=== PATIENT | female | born 1950 | race African-American/Black ===

== ENCOUNTER 2018-03-19 16:23 | Inpatient (IN) | payer MEDICARE, MEDICAID ==
[~2018-03-19] VITALS: Ht 170.2 cm; Wt 72.3 kg
[~2018-03-19 16:23] MED LIST: AFRIN; BACTRIM DS1 TAB PO; CALCIUM600 M1 PO; CHERATUSSIN PO; CLINDAMYCIN300 M1 PO; CYCLOBENZAPR10 MG PO; CYCLOBENZAPRINE10 MG PO; DOCUSATE CAL240 MG PO; DOXYCYCL HYC100 MG PO; FENTANYL25 MCG/HR TD; FLONASE NASAL50 MCG; GABAPENTIN300 MG PO; HYDROCHLOROT12.5 MG PO; HYDROCO/APAP1 T10 PO; HYDROCO/APAP1 TA9 PO; HYDROCODONE/ACE1 TAB PO; HYDROXYCHLOR200 MG PO; LISINOPRIL20 MG PO; LISINOPRIL40 MG PO; LORATADINE10 M1 PO; LORCET10/650 PO; LORTAB 7.5 PO; LORTAB 7.5-3251 TAB PO; MAGNESIUM250 MG PO; MEDDOSEPAK PO; MELOXICAM15 MG PO; MELOXICAM7.5 MG PO; OMEPRAZOLE20 M2 PO; OMEPRAZOLE40 MG PO; PERCOCET 5/325M1 TAB PO; PLAQUENIL200 MG PO; PRILOSEC40 MG PO; TIZANIDINE HCL4 M1 PO; TORADOL PO; TRAMADOL HCL50 MG PO; WAL-FEX D 1212 HOUR PO; ZPAK PO; [UNRECOGNIZED DRUG - OTHER]
[2018-03-19 16:50] VITALS: BP 136/79
[2018-03-19 17:23] LABS: IMMATURE GRANULOCYTES 0.4 % (0.0-1.0); MEAN CELL VOLUME 88.5 fL CALC (80.0-100.0); MEAN CORPUSCULAR HGB 27.7 pG CALC (26.0-32.0); MEAN CORPUSCULAR HGB CONC 31.3 g/L CALC (32.0-36.0); NEUT# 2.73 thou/uL (2.00-7.15); RED BLOOD COUNT 3.14 mill/uL (4.20-5.60); RED CELL DISTRI WIDTH 17.4 % (11.5-15.5)
[2018-03-19 17:29] LABS: HEMATOCRIT 27.8 % (37.0-47.0); HEMOGLOBIN 8.7 g/dl (12.0-16.0)
[2018-03-19 17:43] LABS: CREATININE 1.8 mg/dL (0.5-1.0)
[2018-03-19 17:49] LABS: POTASSIUM 4.2 mmol/l (3.5-5.1)
[2018-03-19 19:25] VITALS: BP 137/80
[2018-03-20] VITALS (10 sets, daily range): BP systolic 109–141; BP diastolic 41–78
[2018-03-20] MEDS ORDERED: AMLODIPINE5 MG PO (10:32)
[2018-03-20] MEDS ORDERED: FERR SULFATE325 MG PO (10:36)
[2018-03-20] MEDS ORDERED: ATORVASTATIN CA20 MG PO (10:37)
[2018-03-20] MEDS ORDERED: EQL ANTACID U1000 MG PO (11:09)
[2018-03-20] MEDS ORDERED: ASPIRIN 8181 MG PO (11:48)
[2018-03-20 15:47] LABS: URINE BILIRUBIN - DIPSTICK NEGATIVE (NEGATIVE); URINE BLOOD DIPSTICK NEGATIVE (NEGATIVE); URINE COLOR YELLOW; URINE GLUCOSE - DIPSTICK NEGATIVE (NEGATIVE); URINE KETONE NEGATIVE (NEGATIVE); URINE LEUK ESTERASE NEGATIVE (NEGATIVE); URINE NITRITE - DIPSTICK NEGATIVE (Negative); URINE PH 5.5 (4.5-8.0); URINE PROTEIN - DIPSTICK NEGATIVE (NEG-TRACE); URINE SPECIFIC GRAVITY 1.025; URINE UROBILINOGEN - DIPSTICK 0.2 E.U./dL (0.2)
[2018-03-20 16:34] LABS: URINE CLARITY CLEAR
[2018-03-21] VITALS (9 sets, daily range): BP systolic 121–151; BP diastolic 47–88
[2018-03-21 05:30] LABS: HEMATOCRIT 28.6 % (37.0-47.0); HEMOGLOBIN 9.3 g/dl (12.0-16.0); IMMATURE GRANULOCYTES 0.7 % (0.0-1.0); MEAN CELL VOLUME 88.3 fL CALC (80.0-100.0); MEAN CORPUSCULAR HGB 28.7 pG CALC (26.0-32.0); MEAN CORPUSCULAR HGB CONC 32.5 g/L CALC (32.0-36.0); NEUT# 2.25 thou/uL (2.00-7.15); RED BLOOD COUNT 3.24 mill/uL (4.20-5.60); RED CELL DISTRI WIDTH 16.2 % (11.5-15.5)
[2018-03-21 05:43] LABS: BILIRUBIN, TOTAL 0.7 mg/dL (0.0-1.4); CREATININE 1.3 mg/dL (0.5-1.0); POTASSIUM 4.4 mmol/l (3.5-5.1); TOTAL PROTEIN 5.8 g/dL (6.3-8.2)
[2018-03-21 05:46] LABS: ALBUMIN 2.6 g/dL (3.2-5.0)
[2018-03-22 04:43] VITALS: BP 120/73
[2018-03-22 05:07] LABS: IMMATURE GRANULOCYTES 0.6 % (0.0-1.0); MEAN CELL VOLUME 86.9 fL CALC (80.0-100.0); MEAN CORPUSCULAR HGB 29.2 pG CALC (26.0-32.0); MEAN CORPUSCULAR HGB CONC 33.6 g/L CALC (32.0-36.0); NEUT# 2.38 thou/uL (2.00-7.15); RED BLOOD COUNT 4.28 mill/uL (4.20-5.60); RED CELL DISTRI WIDTH 15.9 % (11.5-15.5)
[2018-03-22 05:10] LABS: HEMATOCRIT 37.2 % (37.0-47.0); HEMOGLOBIN 12.5 g/dl (12.0-16.0)
[2018-03-22 05:17] LABS: CREATININE 1.3 mg/dL (0.5-1.0); POTASSIUM 4.4 mmol/l (3.5-5.1)
[2018-03-22 08:12] VITALS: BP 101/66
[2018-03-22 15:18] VITALS: BP 142/92
[2018-03-22 22:00] VITALS: BP 101/64; BP 136/87
[2018-03-23 04:11] VITALS: BP 125/79
[2018-03-23 07:45] VITALS: BP 107/57; BP 140/80
[2018-03-23] MEDS ORDERED: HYDROCHLOROT12.5 MG PO (08:31)
[2018-03-23 09:11] VITALS: BP 140/80
== END 2018-03-23 10:20 | disposition home or self-care (01) | DRG 812 ==
LOC: MS2 16:23
PROVIDERS: ADMIT Internal Medicine Geriatric Medicine; ATTEND Internal Medicine Geriatric Medicine
PROC: 30233N1 Transfusion of Nonautologous Red Blood Cells into Peripheral Vein, Percutaneous Approach (ICD-10-PCS; principal; 2018-03-20)
PROC: 30233N1 Transfusion of Nonautologous Red Blood Cells into Peripheral Vein, Percutaneous Approach (ICD-10-PCS; 2018-03-20)
PROC: 30233N1 Transfusion of Nonautologous Red Blood Cells into Peripheral Vein, Percutaneous Approach (ICD-10-PCS; 2018-03-21)
PROC: 30233N1 Transfusion of Nonautologous Red Blood Cells into Peripheral Vein, Percutaneous Approach (ICD-10-PCS; 2018-03-21)
DX: D64.9 Anemia, unspecified (principal); F11.20 Opioid dependence, uncomplicated; I10 Essential (primary) hypertension; M19.90 Unspecified osteoarthritis, unspecified site; E78.5 Hyperlipidemia, unspecified; F41.1 Generalized anxiety disorder; M32.9 Systemic lupus erythematosus, unspecified; G89.4 Chronic pain syndrome; M85.80 Other specified disorders of bone density and structure, unspecified site; S82.852D Displaced trimalleolar fracture of left lower leg, subsequent encounter for closed fracture with routine healing; S32.9XXD Fracture of unspecified parts of lumbosacral spine and pelvis, subsequent encounter for fracture with routine healing; V89.2XXD Person injured in unspecified motor-vehicle accident, traffic, subsequent encounter; R62.7 Adult failure to thrive; E86.0 Dehydration; R11.2 Nausea with vomiting, unspecified; R10.13 Epigastric pain; R10.12 Left upper quadrant pain
CPT/HCPCS: A9537; G0378; G0379; J1650; P9016; S0164

== ENCOUNTER 2018-05-25 12:59 | Day surgery (SDC) | payer MEDICARE, MEDICAID ==
[~2018-05-25] VITALS: Ht 170.2 cm; Wt 76.7 kg
[~2018-05-25 12:59] MED LIST changes: +AMLODIPINE5 MG PO; +ASPIRIN 8181 MG PO; +ATORVASTATIN CA20 MG PO; +EQL ANTACID U1000 MG PO; +FENTANYL50 MCG/HR TD; +FERR SULFATE325 MG PO; +PREDNISONE10 MG PO
[2018-05-25 17:53] VITALS: BP 155/88
== END 2018-05-25 18:00 | disposition home or self-care (01) ==
LOC: ENDO 12:59 → ORM 14:30 → ENDO 17:30 → ORM 17:30 → ENDO 17:45
PROVIDERS: ATTEND Internal Medicine Gastroenterology
PROC: 0DB48ZX Excision of Esophagogastric Junction, Via Natural or Artificial Opening Endoscopic, Diagnostic (ICD-10-PCS; principal; 2018-05-25)
PROC: 0DB78ZX Excision of Stomach, Pylorus, Via Natural or Artificial Opening Endoscopic, Diagnostic (ICD-10-PCS; 2018-05-25)
DX: K21.9 Gastro-esophageal reflux disease without esophagitis (principal); K29.70 Gastritis, unspecified, without bleeding; K31.9 Disease of stomach and duodenum, unspecified; K44.9 Diaphragmatic hernia without obstruction or gangrene; K76.0 Fatty (change of) liver, not elsewhere classified; D64.9 Anemia, unspecified; K57.30 Diverticulosis of large intestine without perforation or abscess without bleeding; K64.8 Other hemorrhoids; K59.00 Constipation, unspecified; I10 Essential (primary) hypertension; M32.9 Systemic lupus erythematosus, unspecified; Z79.899 Other long term (current) drug therapy; Z86.010 Personal history of colon polyps

== ENCOUNTER → 2018-12-10 | Outpatient (REF) | payer MEDICARE, MEDICAID ==
[2018-12-10 11:11] LABS: HEMATOCRIT 36.7 % (37.0-47.0); HEMOGLOBIN 11.7 g/dl (12.0-16.0); IMMATURE GRANULOCYTES 0.2 % (0.0-5.0); MEAN CELL VOLUME 95.8 fL CALC (80.0-100.0); MEAN CORPUSCULAR HGB 30.5 pG CALC (26.0-32.0); MEAN CORPUSCULAR HGB CONC 31.9 g/L CALC (32.0-36.0); NEUT# 2.62 thou/uL (2.00-7.15); RED BLOOD COUNT 3.83 mill/uL (4.20-5.60); RED CELL DISTRI WIDTH 14.6 % (11.5-15.5)
== END | disposition home or self-care (01) ==
LOC: LAB 10:38
PROVIDERS: ATTEND Internal Medicine Geriatric Medicine
DX: J01.90 Acute sinusitis, unspecified (principal); J01.00 Acute maxillary sinusitis, unspecified

== ENCOUNTER 2019-03-07 21:11 | Emergency (ER) | payer MEDICARE, MEDICAID ==
[~2019-03-07] VITALS: Ht 170.2 cm; Wt 78.2 kg
[2019-03-07] MEDS ORDERED: OXYCODONE HCL5 MG PO (21:30)
[2019-03-07] MEDS ORDERED: LEVOFLOXACIN750 MG PO (21:35)
[2019-03-07 22:46] VITALS: BP 188/96
== END 2019-03-07 22:30 | disposition home or self-care (01) ==
LOC: ED 21:11
DX: R04.0 Epistaxis (principal); I10 Essential (primary) hypertension; F17.200 Nicotine dependence, unspecified, uncomplicated

== ENCOUNTER 2019-12-03 | Day surgery (SDC) | payer MEDICARE, MEDICAID ==
[~2019-12-03] MED LIST changes: +ALENDRONATE SOD70 MG PO; +CALCIUM CARBONATE PO; +CYCLOBENZAPRIN7.5 M1 PO; +LEVOFLOXACIN750 MG PO; +LINZESS PO; +OXYCODONE HCL5 MG PO; +OXYCODONE10 M1 PO; +STOOL SOFTENER100 MG PO; +TOPROL XL25 M1 PO; +[UNRECOGNIZED DRUG - OTHER] PO
[2019-12-03 09:00] LABS: HEMATOCRIT 40.7 % (37.0-47.0); HEMOGLOBIN 12.9 g/dl (12.0-16.0); IMMATURE GRANULOCYTES 0.3 % (0.0-5.0); MEAN CELL VOLUME 93.3 fL CALC (80.0-100.0); MEAN CORPUSCULAR HGB 29.6 pG CALC (26.0-32.0); MEAN CORPUSCULAR HGB CONC 31.7 g/L CALC (32.0-36.0); NEUT# 3.61 thou/uL (2.00-7.15); RED BLOOD COUNT 4.36 mill/uL (4.20-5.60); RED CELL DISTRI WIDTH 14.7 % (11.5-15.5)
[2019-12-03 09:19] LABS: ACT PARTIAL THROMBO TIME 23.4 SECONDS (20.0-32.5)
[2019-12-03 09:25] LABS: ALBUMIN 4.2 g/dL (3.2-5.0); BILIRUBIN, TOTAL 0.6 mg/dL (0.0-1.4); CREATININE 1.1 mg/dL (0.5-1.0); TOTAL PROTEIN 7.5 g/dL (6.3-8.2)
[2019-12-03] MEDS ORDERED: ZOFRAN8 MG PO (14:12)
[2019-12-03] MEDS ORDERED: PERCOCET 10/31 COMBO PO (14:12)
[2019-12-03] MEDS ORDERED: ECOTRIN M/S500 MG PO (14:12)
[2019-12-03] MEDS ORDERED: CLINDAMYCIN HC150 MG PO (14:12)
== END 2019-12-03 14:53 | disposition home or self-care (01) ==
PROVIDERS: Podiatrist Foot & Ankle Surgery
PROC: 0SBG4ZZ Excision of Left Ankle Joint, Percutaneous Endoscopic Approach (ICD-10-PCS; principal; 2019-12-03)
PROC: 0SPG04Z Removal of Internal Fixation Device from Left Ankle Joint, Open Approach (ICD-10-PCS; 2019-12-03)
PROC: 0SSG04Z Reposition Left Ankle Joint with Internal Fixation Device, Open Approach (ICD-10-PCS; 2019-12-03)
PROC: 0SH Lower Joints, Insertion (ICD-10-PCS; 2019-12-03)
DX: M19.172 Post-traumatic osteoarthritis, left ankle and foot (principal); S93.432A Sprain of tibiofibular ligament of left ankle, initial encounter; X58.XXXA Exposure to other specified factors, initial encounter; I10 Essential (primary) hypertension
CPT/HCPCS: J0131

== ENCOUNTER 2021-01-05 15:02 | Observation (INO) | payer MEDICARE, MEDICAID ==
[~2021-01-05] VITALS: Ht 170.2 cm; Wt 88.0 kg
[~2021-01-05 15:02] MED LIST changes: +CLINDAMYCIN HC150 MG PO; +ECOTRIN M/S500 MG PO; +PERCOCET 10/31 COMBO PO; +ZOFRAN8 MG PO
--- NOTE | 2021-01-05 15:02 | NUR ---
PATIENT ASSISTED OUT OF VEHICLE IN SEVERE RESPIRATORY DISTRESS PORTABLE PULSE OX READING AT 81% ON ROOM AIR AND RESPIRATIONS AT 40. PATIENT IMMEDIATEKY TO ROOM 10 FOR EVAL
[2021-01-05 15:53] LABS: HEMATOCRIT 40.7 % (37.0-47.0); HEMOGLOBIN 12.3 g/dl (12.0-16.0); IMMATURE GRANULOCYTES 0.3 % (0.0-5.0); MEAN CELL VOLUME 95.5 fL CALC (80.0-100.0); MEAN CORPUSCULAR HGB 28.9 pG CALC (26.0-32.0); MEAN CORPUSCULAR HGB CONC 30.2 g/dL CAL (32.0-36.0); NEUT# 7.16 thou/uL (2.00-7.15); RED BLOOD COUNT 4.26 mill/uL (4.20-5.60); RED CELL DISTRI WIDTH 15.7 % (11.5-15.5)
--- NOTE | 2021-01-05 16:00 | NUR ---
RESTING ON STRETCHER. CALL FRIAS WITHIN REACH. FAMILY @ BEDSIDE.
[2021-01-05 16:05] LABS: ALBUMIN 4.3 g/dL (3.2-5.0); BILIRUBIN, TOTAL 0.8 mg/dL (0.0-1.4); MAGNESIUM 1.7 mg/dL (1.6-2.3); POTASSIUM 4.2 mmol/l (3.5-5.1); TOTAL PROTEIN 7.8 g/dL (6.3-8.2)
[2021-01-05 16:06] LABS: CREATININE 1.8 mg/dL (0.5-1.0)
[2021-01-05] MEDS ORDERED: NORVASC5 M1 PO (16:43)
[2021-01-05] MEDS ORDERED: AZELASTINE HYDR1 SPR (16:44)
[2021-01-05 16:45] VITALS: BP 156/90
[2021-01-05] MEDS ORDERED: CETIRIZINE10 MG PO (16:45)
[2021-01-05] MEDS ORDERED: BUDESONID1 IN (16:45)
[2021-01-05] MEDS ORDERED: ARNUITY EL50 MCG/ACT (16:46)
[2021-01-05] MEDS ORDERED: FUROSEMIDE20 MG PO (16:52)
[2021-01-05] MEDS ORDERED: GABAPENTIN100 MG PO (16:53)
[2021-01-05] MEDS ORDERED: PERFOROMIS20 MCG/2 M (16:54)
[2021-01-05] MEDS ORDERED: SINGULAIR10 MG PO (16:55)
[2021-01-05] MEDS ORDERED: TRAZODONE50 MG PO (16:56)
[2021-01-05] MEDS ORDERED: YUPELRI175 MCG/3 (16:57)
--- NOTE | 2021-01-05 16:59 | NUR ---
RESTING ON STRETCHER. RESPIRATORY THERAPY AT BEDSIDE.
--- NOTE | 2021-01-05 17:42 | NUR ---
RESTING ON STRETCHER. AWAITING INPATIENT BED
--- NOTE | 2021-01-05 17:58 | NUR ---
ATTEMPTED TO CALL REPORT. RN ON FLOOR WILL CALL BACK WHEN SHE IS OUT OF PT ROOM
--- NOTE | 2021-01-05 18:18 | NUR ---
REPORT REC FROM TOMAS ZAPATA
--- NOTE | 2021-01-05 18:20 | NUR ---
REPORT CALLED TO TRUMAN IN MED SURG
--- NOTE | 2021-01-05 20:13 | NUR ---
PT ARRIVED TO FLOOR AT 1843 APPROXIOMATLEY. PT DENIES ANY SKIN CONDITIONS, NO OPEN SKIN AREAS NOTED. CARDIAC SOUNDS AND RYTHYM'S WNL. BREATHING IS EVEN AND SLIGHTLY LABORED WITH EXERTION. LUNGS DIMISHED WITH WHEEZING THROUGHOUT. PULSES PALPABLE. REPORTS PAIN IN HER BACK, MEDICATED WITH ROXICODONE, WILL MONITOR FOR EFFECTIVENESS. IV FLUIDS NS 100ML/HR TO LAC, NO S/S OF INFECTION OR INFILTRATION. SCHEDULED NEBULIZER TREATMENTS ORDERED. BOWEL SPOUNDS ACTIVE X 4 QUADS. O2 @ 2L VIA NC. PT TOLERATING TREATMENTS WELL. PROVIDED PT WITH SNACK OF DEYA CRACKERS AND PEANUT BUTTER. BOTTLED WATER PROVIDED UPON ARRIVAL TO THE FLOOR. WILL CONTINUE TO MONITOR THROUGHOUT SHIFT.
--- NOTE | 2021-01-06 00:05 | NUR ---
PT SITTING UP IN BED WATCHING TELEVISION. NO COMPLAINTS VOICED AT THSI TIME. PT INDICATED SHE DOESN'T SLEEP WELL MOST NIGHTS BUT THAT IT DOESN'T BOTHER HER. IV FLUIDS CONTINUE AT 100ML/HR NS TO LAC. NO S/S OF INFECTION OR INFILTRATION NOTED. BREATHING IS EVEN AND UNLABORED. SCATTERED WHEEZING NOTED. O2 CONTINUES AT 2L/MIN VIA NC. WILL CONTINUE TO MONITOR.
[2021-01-06 00:13] VITALS: BP 152/84
[2021-01-06 04:00] VITALS: BP 152/73
--- NOTE | 2021-01-06 04:23 | NUR ---
PT RESTING QUIETLY IN BED, NO C/O PAIN AT THIS TIME. BREATHING IS EVEN AND UNLABORED. IV FLUIDS CONTINUE TO LAC, NS 100ML/HR, NO S/S OF INFECTION OR INFILTRATION NOTED. WILL CONTINUE TO MONITOR
--- NOTE | 2021-01-06 06:37 | NUR ---
UPON MORNING MED PASS NOTED BLOOD ON LINENS. NOTED THAT IV TO LAC HAD BEEN DISLODGED WHILE PT WAS SLEEPING. NEW IV, #20 STARTED TO RIGHT WRIST X 1 ATTEMPT, WITHOUT DIFFICULTY. SITE FLUSHES EASILY, PT DENIES PAIN IN FLUSHING AND DENIES PAIN ON MEDICATION ADMINISTRATION. IV SITE SECURED WITH TAPE, DATED, AND INTIALED. WILL MONITOR
[2021-01-06 07:05] VITALS: BP 168/81
--- NOTE | 2021-01-06 07:21 | NUR ---
REPORT RECEIVED FROM NORIS ELLISON. PT SITTING UP IN BED HIGH FOWLERS; ALERT AND ORIENTED. DENIES PAIN; REPORTS THAT MEDICATION WAS EFFECTIVE FOR BACK PAIN. RESPIRATIONS EVEN AND UNLABORED ON OXYGEN 2L VIA NC. LUNGS COURSE TO RIGHT LOWER LOBE AND MILD EXPIRATORY WHEEZING; PT REPORTS THAT SHE FEELS MUCH BETTER THAN YESTERDAY. TRACE EDEMA TO BILATERAL ANKLES. POC REVIEWED. PT ENCOURAGED TO VERBALIZE CONCERNS. STATES UNDERSTANDING. SAFETY MEASURES IN PLACE. CALL LIGHT WITHIN REACH.
[2021-01-06 08:50] LABS: HEMOGLOBIN 11.7 g/dl (12.0-16.0); IMMATURE GRANULOCYTES 0.5 % (0.0-5.0); MEAN CELL VOLUME 93.1 fL CALC (80.0-100.0); MEAN CORPUSCULAR HGB 28.7 pG CALC (26.0-32.0); MEAN CORPUSCULAR HGB CONC 30.8 g/dL CAL (32.0-36.0); NEUT# 7.55 thou/uL (2.00-7.15); RED BLOOD COUNT 4.08 mill/uL (4.20-5.60); RED CELL DISTRI WIDTH 15.3 % (11.5-15.5)
[2021-01-06 09:15] LABS: CREATININE 1.6 mg/dL (0.5-1.0); POTASSIUM 4.5 mmol/l (3.5-5.1)
--- NOTE | 2021-01-06 09:15 | NUR ---
DR. SCHROEDER AND EARLINE YOUNG AT BEDSIDE. SPO2 97% ON OXYGEN; OXYGEN REMOVED AT THIS TIME; WILL CONTINUE TO MONITOR ON ROOM AIR. PT GAVE CONSENT FOR PNEUMONIA VACCINE.
--- NOTE | 2021-01-06 09:48 | NUR ---
PNEUMONIA VACCINE ADMINSITERED IN EVA; FENTAYL PATCH APPLIED TO BILL PER ELLIOTT. SPO2 94% ON ROOM AIR AT REST; HAS MILD EXERTIONAL SOB WHEN AMBULATING TO BATHROOM AND BACK TO BED; SPO2 DECREASED TO 85%. PT QUICKLY RECOVERS TO 94%; PT REQUESTS TO REMAIN ON ROOM AIR. WILL CONTINUE TO MONITOR. CALL LIGHT WITHIN REACH.
--- NOTE | 2021-01-06 10:02 | NUR ---
OFF UNIT VIA WHEELCHAIR FOR CHEST XRAY.
--- NOTE | 2021-01-06 10:20 | NUR ---
RETURNED TO ROOM VIA W/C AND PLACED IN BED WITHOUT INCIDENCE.
--- NOTE | 2021-01-06 10:46 | NUR ---
RT AT BEDSIDE FOR BREATHING TREATMENT.
[2021-01-06] MEDS ORDERED: ZPAK PO (11:20)
[2021-01-06] MEDS ORDERED: PREDNISONE10 MG PO (11:21)
--- NOTE | 2021-01-06 11:25 | NUR ---
EDUCATED ON INCENTIVE SPIROMETER AND PT DEMONSTRATED USE.
[2021-01-06 11:51] VITALS: BP 159/75
[2021-01-06] MEDS ORDERED: OXY1 (11:57)
--- NOTE | 2021-01-06 12:12 | NUR ---
IV site discontinued, cath intact. No edema , no redness, voices no discomfort.
--- NOTE | 2021-01-06 14:00 | NUR ---
ALL DISCHARGE INSTRUCTIONS PROVIDED AT THIS TIME;PT INSTRUCTED TO F/U WITH PCP, , & PULMONOLOGY;TAKE PREDNISONE AND ABX DIRECTED;CONTINUE YOUR HOME MEDICATIONS, USE IS 10X PER HOUR AND USE OXYGEN NEEDED WITH EXERTION;HOME OXYGEN PROVIDED AND PT EDUCATED ON USAGE, NUMBER FOR LINECARE PROVIDED;PT DENIES ANY ADDITIONAL QUESTIONS OR NEEDS;IV SITE WAS REMOVED WITH CATHETER INTACT AND TELE MONITORING D/C;WHEELCHAIR TO BE PROVIDED FOR D/C HOME;SPOUSE TO TRANSPORT PT HOME;WILL CONTINUE TO MONITOR
--- NOTE | 2021-01-06 14:03 | NUR ---
Discharge instructions given. Patient verbalizes understanding of same. Discharged in stable condition via Wheelchair to Home with family. All belongings sent with pt. PT TRANSPORTED TO [facility] IN STABLE CONDITION VIA WHEELCHAIR ACCOMPANIED BY JODI HALL AND SPOUSE;ALL BELONGINGS AND HOME OXYGEN LEFT WITH PT AT THIS TIME.
== END 2021-01-06 14:03 ==
LOC: ED 15:02 → ED-I 17:17 → ED 17:30 → MS2 17:31
PROVIDERS: Emergency Medicine; Nurse Practitioner; ADMIT Internal Medicine; ATTEND Internal Medicine
PROC: 3E0234Z Introduction of Serum, Toxoid and Vaccine into Muscle, Percutaneous Approach (ICD-10-PCS; principal; 2021-01-06)
DX: J44.1 Chronic obstructive pulmonary disease with (acute) exacerbation (principal); R09.02 Hypoxemia; N17.9 Acute kidney failure, unspecified; I12.9 Hypertensive chronic kidney disease with stage 1 through stage 4 chronic kidney disease, or unspecified chronic kidney disease; N18.9 Chronic kidney disease, unspecified; G89.4 Chronic pain syndrome; F17.200 Nicotine dependence, unspecified, uncomplicated; Z23 Encounter for immunization; Z20.822 Contact with and (suspected) exposure to COVID-19
CPT/HCPCS: G0378; J1650; J7626

== ENCOUNTER 2021-01-19 | Emergency (ER) | payer MEDICARE, MEDICAID ==
[~2021-01-19] MED LIST changes: +ARNUITY EL50 MCG/ACT; +AZELASTINE HYDR1 SPR; +BUDESONID1 IN; +CETIRIZINE10 MG PO; +FUROSEMIDE20 MG PO; +GABAPENTIN100 MG PO; +NORVASC5 M1 PO; +OXY1; +PERFOROMIS20 MCG/2 M; +SINGULAIR10 MG PO; +TRAZODONE50 MG PO; +YUPELRI175 MCG/3
[2021-01-19 22:21] LABS: HEMATOCRIT 41.6 % (37.0-47.0); HEMOGLOBIN 12.5 g/dl (12.0-16.0); IMMATURE GRANULOCYTES 0.7 % (0.0-5.0); MEAN CELL VOLUME 94.3 fL CALC (80.0-100.0); MEAN CORPUSCULAR HGB 28.3 pG CALC (26.0-32.0); NEUT# 7.7 thou/uL (2.00-7.15); RED BLOOD COUNT 4.41 mill/uL (4.20-5.60); RED CELL DISTRI WIDTH 15.8 % (11.5-15.5)
[2021-01-19 22:47] LABS: ALBUMIN 4.2 g/dL (3.2-5.0); BILIRUBIN, TOTAL 0.8 mg/dL (0.0-1.4); CREATININE 2.3 mg/dL (0.5-1.0); POTASSIUM 4.7 mmol/l (3.5-5.1); TOTAL PROTEIN 7.6 g/dL (6.3-8.2)
[2021-01-19 22:48] LABS: ACT PARTIAL THROMBO TIME 23.4 SECONDS (20.0-32.5); PROTHROMBIN TIME 9.7 SECONDS (9.0-12.5)
[2021-01-20] MEDS ORDERED: TOBRAMYCIN0.31 OU (00:38)
[2021-01-20] MEDS ORDERED: ONDANSETRON4 MG PO (00:38)
== END 2021-01-20 01:20 | disposition home or self-care (01) ==
DX: K80.20 Calculus of gallbladder without cholecystitis without obstruction (principal); H10.9 Unspecified conjunctivitis; G89.4 Chronic pain syndrome; I10 Essential (primary) hypertension; J44.9 Chronic obstructive pulmonary disease, unspecified; Z90.710 Acquired absence of both cervix and uterus

== ENCOUNTER 2021-01-23 | Emergency (ER) | payer MEDICARE, MEDICAID ==
[~2021-01-23] MED LIST changes: +ONDANSETRON4 MG PO; +TOBRAMYCIN0.31 OU
--- NOTE | 2021-01-23 10:59 | NUR ---
PT PLACED ON BIPAP PER MD SPARROW. HOMEMAKING REHABILITATION CONSULTANT CONFIRMED ORDER VIA RB. PT DOING WELL ON NIV. ABG TO BE OBTAINED. RNs IN ROOM WITH PT CURRENTLY. VSS. HOMEMAKING REHABILITATION CONSULTANT TO MONITOR.
[2021-01-23 11:14] LABS: HEMATOCRIT 39.8 % (37.0-47.0); HEMOGLOBIN 11.6 g/dl (12.0-16.0); IMMATURE GRANULOCYTES 0.7 % (0.0-5.0); MEAN CELL VOLUME 98.3 fL CALC (80.0-100.0); MEAN CORPUSCULAR HGB 28.6 pG CALC (26.0-32.0); MEAN CORPUSCULAR HGB CONC 29.1 g/dL CAL (32.0-36.0); NEUT# 10.82 thou/uL (2.00-7.15); RED BLOOD COUNT 4.05 mill/uL (4.20-5.60); RED CELL DISTRI WIDTH 15.7 % (11.5-15.5)
[2021-01-23 11:29] LABS: ALBUMIN 4.2 g/dL (3.2-5.0); BILIRUBIN, TOTAL 0.7 mg/dL (0.0-1.4); TOTAL PROTEIN 7.7 g/dL (6.3-8.2)
[2021-01-23 11:33] LABS: CREATININE 5.4 mg/dL (0.5-1.0); POTASSIUM 6.1 mmol/l (3.5-5.1)
--- NOTE | 2021-01-23 11:59 | NUR ---
TITRATED ANNA PARAMETERS PER PT SBG RESULTS. AWARE. ABG TO BE DRAWN FOLLOWING CHANGES C PARAMETERS IN NIV.
== END 2021-01-23 13:25 | disposition short-term general hospital (02) ==
PROVIDERS: Emergency Medicine
PROC: 5A09357 Assistance with Respiratory Ventilation, Less than 24 Consecutive Hours, Continuous Positive Airway Pressure (ICD-10-PCS; principal; 2021-01-23)
PROC: 0BH17EZ Insertion of Endotracheal Airway into Trachea, Via Natural or Artificial Opening (ICD-10-PCS; 2021-01-23)
DX: T40.2X1A Poisoning by other opioids, accidental (unintentional), initial encounter (principal); I21.4 Non-ST elevation (NSTEMI) myocardial infarction; N19 Unspecified kidney failure; E87.5 Hyperkalemia; E87.2 Acidosis; I10 Essential (primary) hypertension; J44.9 Chronic obstructive pulmonary disease, unspecified; Z20.822 Contact with and (suspected) exposure to COVID-19
CPT/HCPCS: J1956

== ENCOUNTER 2021-06-04 08:53 | Outpatient (REF) | payer MEDICARE, MEDICAID ==
[2021-06-04 09:24] LABS: HEMATOCRIT 37.8 % (37.0-47.0); HEMOGLOBIN 11.4 g/dl (12.0-16.0); IMMATURE GRANULOCYTES 0.4 % (0.0-5.0); MEAN CELL VOLUME 93.1 fL CALC (80.0-100.0); MEAN CORPUSCULAR HGB 28.1 pG CALC (26.0-32.0); MEAN CORPUSCULAR HGB CONC 30.2 g/dL CAL (32.0-36.0); NEUT# 3.16 thou/uL (2.00-7.15); RED BLOOD COUNT 4.06 mill/uL (4.20-5.60)
[2021-06-04 09:48] LABS: ALBUMIN 3.8 g/dL (3.2-5.0); CREATININE 1.7 mg/dL (0.5-1.0); POTASSIUM 4.4 mmol/l (3.5-5.1)
[2021-06-04 10:06] LABS: URINE BILIRUBIN - DIPSTICK NEGATIVE (NEGATIVE); URINE BLOOD DIPSTICK NEGATIVE (NEGATIVE); URINE CLARITY CLEAR; URINE COLOR YELLOW; URINE GLUCOSE - DIPSTICK NEGATIVE (NEGATIVE); URINE KETONE NEGATIVE (NEGATIVE); URINE LEUK ESTERASE NEGATIVE (Negative); URINE NITRITE - DIPSTICK NEGATIVE (Negative); URINE PH 6.5 (4.5-8.0); URINE PROTEIN - DIPSTICK NEGATIVE (NEG-TRACE); URINE UROBILINOGEN - DIPSTICK 0.2 E.U./dL (0.2)
--- NOTE | 2021-06-04 11:01 | NUR ---
Patient is here for Retacrit injection Hold current Retacrit dose of 20,000 units SC Q2W on 06/04/21 due to Hbg 11.4 g/dl and increased blood pressure ,Previous Retacrit dose of 20,000 units on 05/06/21. Current Hgb on 06/04/21: 11.4 g/dl Previous Hgb on 05/21/21: 10.9 g/dl Previous Iron study on 06/04/21: Iron: 80 ug/dl % Saturation: 32 % Ferritin: 218 ng/ml Transferrin: 172 mg/dl on 04/06/21 Next Iron study on: 09/06/21 Next Hgb due on: 07/02/21 Pt will come back for next dose of Retacrit 10,000 units SC Q2W on 07/02/21. Notes: BP: 168/88 mmHg
[2021-06-04 11:23] VITALS: BP 168/88
== END 2021-06-04 11:29 | disposition home or self-care (01) ==
LOC: MSOP 08:53 → INF 09:00 → MSOP 11:29
PROVIDERS: ATTEND Internal Medicine Nephrology
DX: N18.32 Chronic kidney disease, stage 3b (principal); D63.1 Anemia in chronic kidney disease; N25.81 Secondary hyperparathyroidism of renal origin

== ENCOUNTER 2021-09-23 02:26 | Observation (INO) | payer MEDICARE, MEDICAID ==
[~2021-09-23] VITALS: Ht 170.2 cm; Wt 85.0 kg
--- NOTE | 2021-09-23 02:30 | NUR ---
TO ROOM 12 VIA W/C FOR TRIAGED AT BEDSIDE.
[2021-09-23] MEDS ORDERED: ATORVASTATIN CA20 MG PO (03:02)
[2021-09-23] MEDS ORDERED: ASPIRIN EC LOW81 MG PO (03:02)
[2021-09-23] MEDS ORDERED: BREZTRI AEROSPH1 AER IN (03:04)
[2021-09-23] MEDS ORDERED: BUDESONID1 IN (03:06)
[2021-09-23] MEDS ORDERED: CETIRIZINE10 MG PO (03:08)
[2021-09-23] MEDS ORDERED: CALCI23 PO (03:08)
[2021-09-23] MEDS ORDERED: FLEXERIL5 M1 PO (03:09)
[2021-09-23] MEDS ORDERED: LINZESS72 MCG PO (03:10)
[2021-09-23] MEDS ORDERED: OXYCODONE15 MG PO (03:11)
[2021-09-23] MEDS ORDERED: PERFOROMIS20 MCG/2 M IN (03:12)
[2021-09-23] MEDS ORDERED: PREDNISONE10 MG PO (03:18)
[2021-09-23] MEDS ORDERED: TRAZODONE50 MG PO (03:18)
[2021-09-23] MEDS ORDERED: YUPELRI175 MCG/3 IN ×2 (03:19→09:32)
[2021-09-23] MEDS ORDERED: NORVASC10 M1 PO (03:20)
--- NOTE | 2021-09-23 03:21 | NUR ---
W/D SKIN NO DYSPNEA ABD PAIN IS RATED NOW 4 ON SCALE ABD RESOLVING
[2021-09-23] MEDS ORDERED: TENORETIC 50 501 TAB PO (03:24)
[2021-09-23] MEDS ORDERED: LISINOPRIL20 M1 PO (03:25)
[2021-09-23] MEDS ORDERED: GUANFACINE ER1 MG PO (03:25)
[2021-09-23 03:27] LABS: ACT PARTIAL THROMBO TIME 18.4 SECONDS (20.0-32.5); INTERNATIONAL NORMALIZED RATIO 0.9 RATIO (0.7-1.3); PROTHROMBIN TIME 9.3 SECONDS (9.0-12.5)
[2021-09-23 03:42] LABS: HEMATOCRIT 41.5 % (37.0-47.0); HEMOGLOBIN 13.1 g/dl (12.0-16.0); IMMATURE GRANULOCYTES 0.3 % (0.0-5.0); MEAN CELL VOLUME 92.6 fL CALC (80.0-100.0); MEAN CORPUSCULAR HGB 29.2 pG CALC (26.0-32.0); MEAN CORPUSCULAR HGB CONC 31.6 g/dL CAL (32.0-36.0); NEUT# 7.5 thou/uL (2.00-7.15); RED BLOOD COUNT 4.48 mill/uL (4.20-5.60); RED CELL DISTRI WIDTH 15.1 % (11.5-15.5)
[2021-09-23 04:08] LABS: URINE BILIRUBIN - DIPSTICK NEGATIVE (NEGATIVE); URINE BLOOD DIPSTICK NEGATIVE (NEGATIVE); URINE COLOR YELLOW; URINE GLUCOSE - DIPSTICK NEGATIVE (NEGATIVE); URINE KETONE NEGATIVE (NEGATIVE); URINE LEUK ESTERASE NEGATIVE (NEGATIVE); URINE PROTEIN - DIPSTICK NEGATIVE (NEG-TRACE); URINE SPECIFIC GRAVITY 1.015; URINE UROBILINOGEN - DIPSTICK 0.2 E.U./dL (0.2)
[2021-09-23 04:14] LABS: URINE NITRITE - DIPSTICK NEGATIVE (Negative)
[2021-09-23 04:23] LABS: ALBUMIN 3.8 g/dL (3.2-5.0); BILIRUBIN, TOTAL 0.4 mg/dL (0.0-1.4); POTASSIUM 4.4 mmol/l (3.5-5.1); TOTAL PROTEIN 7.1 g/dL (6.3-8.2)
[2021-09-23 04:35] LABS: CREATININE 2.7 mg/dL (0.5-1.0)
--- NOTE | 2021-09-23 04:47 | NUR ---
ABD PAIN HAS RESPLVED NO N/V W D SKIN
--- NOTE | 2021-09-23 05:49 | NUR ---
W/D SKIN NO NAUSEA NO DYSPNEA.SR NO ECTOPY
--- NOTE | 2021-09-23 07:17 | NUR ---
REPORT CALLED TO FLOOR 273
--- NOTE | 2021-09-23 08:00 | NUR ---
ORIENTATED PT TO ROOM. REPORTS NO PAIN AT THIS TIME. REPORT RECIEVED FROM MARQUIS STATES TORODAL WAS GIVEN DOWN IN ER. ASSESSMENT ALLOWED. LUNG SOUNDS ARE DIMINISHED UPPER/LOWER LOBES POSTERIORLY. RUL AND SUELLEN CLEAR UPON AUSCUALTION. HEART SOUNDS ARE NORMAL. BOWEL SOUNDS HEARD X4, ABD IS TENDER TO TOUCH ON THE RIGHT LOWER QUADRANT. IV LOCATED ON THE LAC 20G INFUSING NS PER EMAR ORDER. TELE MONITOR IN PLACE, CONTNOUS MONITORING BY ED. ENCOURAGED PT TO USE CALL LIGHT FOR ANY NEED. CALL LIGHT AND PERSONAL ITEMS ARE WITHIN REACH.
[2021-09-23 08:15] VITALS: BP 183/69
[2021-09-23] MEDS ORDERED: ZITHROMAX Z-PA250 MG PO (09:28)
[2021-09-23] MEDS ORDERED: AZELASTINE HCL0.1 % (09:31)
[2021-09-23] MEDS ORDERED: HYDRALAZINE HYD25 MG PO (09:37)
[2021-09-23 11:03] VITALS: BP 187/82
--- NOTE | 2021-09-23 13:00 | NUR ---
PT IN PAIN. EARLINE HELLER NOTIFED. TYENENOL IV GIVEN. THROUGH IV PUMP. TELE MONITOR IN PLACE, CONTINOUS MONITORING BY ED. IV PATENT. NO OTHER NEEDS AT THIS TIME. CALL LIGHT WITHIN REACH
[2021-09-23 14:46] VITALS: BP 172/74
--- NOTE | 2021-09-23 15:20 | NUR ---
PT LEFT TO ULTRASOUND WITH HOSPTIAL VOLUNTEER STAFF VIA WC AND STABLE CONDITION.
--- NOTE | 2021-09-23 16:00 | NUR ---
PT IV INFILTRATED. JODI LOVING ESTABLISHED NEW IV SITE LOCATED ON THE RIGHT HAND 22G. REPORTS NO PAIN AT THIS TIME ONLY WHEN SNEEZONG COUGHING OCCURS. TELE MONITOR IN PLACE. CALL LIGHT WITHIN REACH.
--- NOTE | 2021-09-23 19:00 | NUR ---
REPORT FROM RANJAN ZAPATA. ASSUMED PT CARE.
[2021-09-23 19:15] VITALS: BP 155/72
--- NOTE | 2021-09-23 19:16 | NUR ---
PT MEDICATED FOR UPPER ABD PAIN 06/11 WITH PRN IV MORPHINE. ACTIVE BOWEL SOUNDS NOTED IN ALL FOUR QUADRANTS. PT REMAINS NPO AT THIS TIME. NO OTHER COMPLAINTS NOTED. PT AT BEDSIDE. IV FLUIDS INFUSING WITHOUT DIFFICULTY. CALL LIGHT WITHIN REACH. WILL CONTINUE TO MONITOR.
--- NOTE | 2021-09-23 19:35 | NUR ---
PER RADIOLOGY US RESULTS STILL PENDING AT THIS TIME.
--- NOTE | 2021-09-23 20:50 | NUR ---
PT MEDICATED ORDERED. PT DENIES ANY DISCOMFORT AT THIS TIME. STAND BY ASSIST TO BATHROOM. PT VOIDED WITHOUT DIFFICULTY AND IS PASSING GAS. PT AMBULATES WITH STEADY GAIT BACK INTO BED. MILD SOB NOTED, REAPPLIED O2 AT THIS TIME. CALL LIGHT WITHIN REACH. WILL CONTINUE TO MONITOR.
--- NOTE | 2021-09-23 23:31 | NUR ---
PT MEDICATED FOR ABD PAIN. NO APPARENT DISTRESS NOTED. PT STATES PAIN 04/10. ENCOURAGED PT TO REPOSITION IN BED FOR COMFORT. CALL LIGHT WITHIN REACH. WILL CONTINUE TO MONITOR.
[2021-09-23 23:50] VITALS: BP 157/70
[2021-09-24] VITALS (14 sets, daily range): BP systolic 145–167; BP diastolic 61–76
--- NOTE | 2021-09-24 03:40 | NUR ---
PT MEDICATED FOR ABD PAIN 04/10. ACTIVE BOWEL SOUNDS NOTED IN ALL FOUR QUADRANTS. ASSISTED PT TO BATHROOM AT THIS TIME. PT VOIDED WITHOUT DIFFICULTY AND STATES SHE IS PASSING GAS. PT AMBULATED BACK TO BED WITH STEADY GAIT. CALL LIGHT WITHIN REACH. WILL CONTINUE TO MONITOR.
[2021-09-24 05:06] LABS: MEAN CELL VOLUME 96.2 fL CALC (80.0-100.0); MEAN CORPUSCULAR HGB 29.1 pG CALC (26.0-32.0); MEAN CORPUSCULAR HGB CONC 30.3 g/dL CAL (32.0-36.0); RED BLOOD COUNT 3.64 mill/uL (4.20-5.60); RED CELL DISTRI WIDTH 14.9 % (11.5-15.5)
[2021-09-24 05:19] LABS: HEMOGLOBIN 10.6 g/dl (12.0-16.0)
[2021-09-24 05:27] LABS: CREATININE 2.2 mg/dL (0.5-1.0); POTASSIUM 5.1 mmol/l (3.5-5.1)
--- NOTE | 2021-09-24 07:00 | NUR ---
SHIFT CHANGE REPORT, PT AWAKE ALERT AND ORIENTED RESTING IN BED, C/O ABD PAIN @ 8/10, O2 @ 2L VIA NC IN PLACE, TELE MONITOR IN PLACE, CALL FRIAS IN REACH, PAIN CONCERN ADDRESSED, BED LOCKED IN LOWEST POSITION.
--- NOTE | 2021-09-24 09:27 | NUR ---
OR STAFF HERE AT THIS TIME RECEIVING PT AND TRANSFERRING HER OFF UNIT VIA STRETCHER TO SURGERY.
--- NOTE | 2021-09-24 12:42 | NUR ---
TRANSPORTED BACK TO UNIT BY PACU STAFF, MOANING IN PAIN @ 04/10 AT THIS TIME. BEDSIDE REPORT RECEIVED FROM RN. SMITH AFTER PT TRANSFERRED TO BED AND SETTLED, EBL 10CC REPORTED, FLUIDS IN = 700, INCISION X 6 TO ABD WITH 2X2 SECURED WITH TRANSPARENT DRESSINGS, O2 @ 2L IN PLACE, TELE MONITOR REPLACED, VITAL SIGNS BEING MEASURED AND RECORDED, WILL CONTINUE TO MONITOR.
--- NOTE | 2021-09-24 16:00 | NUR ---
RESTING IN BED, ASISTED TO BSC AND BACK TO BED, PAIN AGGRAVATED WITH MOVEMENT AND ADDRESSED, ALL NEEDS ADDRESSED, CALL FRIAS IN REACH.
--- NOTE | 2021-09-24 19:52 | NUR ---
PATIENT SITTING UP IN BED WITH O2 VIA NASAL CANNULA IN PLACE AT 2LPM. O2 SAT IS 94%. AWAKE ALERT AND ORIENTEDX3. PATIENT WITH C/O POST-OP PAIN-MINIMAL RELIEF FROM DILAUDID EARLIER. MEDICATED WITH PERCOCET 5/325MG PO FOR 6/10 ON PAIN SCALE. IVF NS PATENT AND INFUSING VIA RAC SITE AT 100CC/HR. SITE IS HEALTHY AT THIS TIME. ABD DRESSINGS INTACT. HYPOACTIVE BS AT THIS TIME. SCD'S IN PLACE. INSTRUCTED ON USE OF IS Q1H WHILE AWAKE-POOR EFFORT. WILL NEED ENCOURAGMENT. TELE MONITOR IN PLACE-LAST READING WAS SR-60'S. SAFETY PRECAUTIONS REINFORCED. CALL LIGHT IN REACH. WILL CONT TO MONITOR.
--- NOTE | 2021-09-24 21:24 | NUR ---
PATIENT RESTING IN BED WATCHING TV. STATES THAT PAIN HAS IMPROVED AFTER TAKING PERCOCET. MIN ASSIST PATIENT TO THE BSC TO VOID AND THEN BACK TO BED. LUNGS ARE DIMINISHED THROUGHOUT. ENCOURAGED USE OF IS Q1H WHILE AWAKE. O2 VIA NASAL CANNULA IN PLACE. IVF NS PATIENT AND INFUSING VIA RAC SITE. CALL LIGHT IN REACH. WILL CONT TO MONITOR.
--- NOTE | 2021-09-24 23:57 | NUR ---
RESTING IN BED WITH O2 VIA NASAL CANNULA IN PLACE. IVF NS PATENT AND INFUSING VIA RAC SITE ORDERED. O2 VIA NASAL CANNULA IN PLACE. TELE MONITOR IN PLACE. CALL LIGHT IN REACH. WILL CONT TO MONITOR.
--- NOTE | 2021-09-25 03:29 | NUR ---
PATIENT ASSISTED OOB TO THE BSC TO VOID AND THEN BACK TO BED. O2 VIA NASAL CANNULA IN PLACE AT 2LPM. IVF PATENT AND INFUSING VIA RAC SITE AT 100CC/HR. TELE MONITOR IN PLACE. C/O POST-OP PAIN-MEDICATED WITH ATIVAN 0.5MG PO GIVEN. SAFETY PRECAUTIONS REINFORCED. CALL LIGHT IN REACH. WILL CONT TO MONITOR.
[2021-09-25 04:42] VITALS: BP 154/81
[2021-09-25 05:21] LABS: ALBUMIN 3.5 g/dL (3.2-5.0); CREATININE 2.5 mg/dL (0.5-1.0); TOTAL PROTEIN 6.8 g/dL (6.3-8.2)
[2021-09-25 05:27] LABS: HEMATOCRIT 39.6 % (37.0-47.0); HEMOGLOBIN 11.5 g/dl (12.0-16.0); IMMATURE GRANULOCYTES 0.5 % (0.0-5.0); MEAN CELL VOLUME 98.8 fL CALC (80.0-100.0); MEAN CORPUSCULAR HGB 28.7 pG CALC (26.0-32.0); NEUT# 4.16 thou/uL (2.00-7.15); RED BLOOD COUNT 4.01 mill/uL (4.20-5.60); RED CELL DISTRI WIDTH 14.8 % (11.5-15.5)
[2021-09-25 05:33] LABS: BILIRUBIN, TOTAL 1.8 mg/dL (0.0-1.4); POTASSIUM 5.4 mmol/l (3.5-5.1)
--- NOTE | 2021-09-25 05:47 | NUR ---
RESTING IN BED AT THIS TIME-MEDICATED FOR PAIN WITH PERCOCET 5/325MG PO FOR POST-OP PAIN. IVF NS PATENT AND INFUSING AT 100CC/HR. TELE MONITOR IN PLACE-LAST READING WAS SR-75. CALL LIGHT IN REACH. WILL CONT TO MONITOR.
[2021-09-25 07:45] VITALS: BP 168/90
--- NOTE | 2021-09-25 07:45 | NUR ---
PATIENT RESTING IN BED AT THIS TIME. DENEIS ANY PAIN OR NEEDS CURRENTLY. PATIENT IS POD 1 AND ABDOMINAL 5 LAP SITES ARE INTACT WITH SMALL AMT. OF DRY DRAINAGE NOTED. PATIENT EDUCATED ON GETTING UP AND WALKING AND PATIENT IS IN AGREEMENT. BOWEL SOUNDS PRESENT IN ALL FOUR QUADS. WILL CONTINUE TO MONITOR.
[2021-09-25 10:30] VITALS: BP 164/75
--- NOTE | 2021-09-25 11:09 | NUR ---
PATIENT COMPLAINING OF PAIN IN ABDOMINAL WALL PATIENT STATES IS A 6-7 AT THIS TIME PATIENT REFUSING TO TAKE IM DILAUDID BUT WAS GIVEN 5MG OF OXYCODONE AND 4MG OF IV ZOFRAN AT THIS THIS TIME. CALL LIGHT IS WITHIN REACH AT THIS TIME. WILL CONTINUE TO MONITOR.
--- NOTE | 2021-09-25 11:42 | NUR ---
PATIENT RESTING IN CHAIR AT THIS TIME. DR. REYNAGA IN TO SEE PATIENT. PAIN REASSESS AND STATES IT IS A 5 PAIN MEDICATION HELP AND NAUSEA MUCH BETTER ZOFRAN HELPED WELL PER PATIENT. WILL CONTINUE TO MONITOR TELE ON
[2021-09-25 12:00] VITALS: BP 180/74
--- NOTE | 2021-09-25 12:32 | NUR ---
PATIENT D/C AT THIS TIME. PATIENT VERBALIZES UNDERSTANDING OF D/C INSTURCTIONS. PATIENT ADVISED TO F/U WITH OUTPATIENT LAB ON MONDAY PRIOR TO GOING TO DR. REYNAGA OFFICE. PATIENTS IV REMOVED TIP INTACT AND TELE MONITOR REMOVED ED CALLED (JODI PAYAN)
--- NOTE | 2021-09-25 12:39 | NUR ---
Discharge instructions given. Patient verbalizes understanding of same. Discharged in stable condition via Wheelchair to Home with spouse. All belongings sent with pt. PATIENT VERBALIZED UNDERSTANDING OF D/C INSTRUCTIONS.
== END 2021-09-25 12:39 | disposition home or self-care (01) ==
LOC: ED 02:26 → ED-I 06:30 → ED 06:47 → MS2 06:48
PROVIDERS: Nurse Practitioner; ADMIT Hospitalist; ATTEND Hospitalist
PROC: 0FT44ZZ Resection of Gallbladder, Percutaneous Endoscopic Approach (ICD-10-PCS; principal; 2021-09-24)
DX: K80.10 Calculus of gallbladder with chronic cholecystitis without obstruction (principal); N17.9 Acute kidney failure, unspecified; I12.9 Hypertensive chronic kidney disease with stage 1 through stage 4 chronic kidney disease, or unspecified chronic kidney disease; N18.9 Chronic kidney disease, unspecified; J43.9 Emphysema, unspecified; E78.5 Hyperlipidemia, unspecified; G89.4 Chronic pain syndrome; I25.2 Old myocardial infarction; F17.200 Nicotine dependence, unspecified, uncomplicated; Z99.81 Dependence on supplemental oxygen; Z20.822 Contact with and (suspected) exposure to COVID-19
CPT/HCPCS: G0378; J0131; S0164

== ENCOUNTER 2021-09-28 14:21 | Observation (INO) | payer MEDICARE, MEDICAID ==
[~2021-09-28] VITALS: Ht 170.2 cm; Wt 72.0 kg
[~2021-09-28 14:21] MED LIST changes: +ASPIRIN EC LOW81 MG PO; +AZELASTINE HCL0.1 %; +BREZTRI AEROSPH1 AER IN; +CALCI23 PO; +FLEXERIL5 M1 PO; +GUANFACINE ER1 MG PO; +HYDRALAZINE HYD25 MG PO; +LINZESS72 MCG PO; +LISINOPRIL20 M1 PO; +NORVASC10 M1 PO; +OXYCODONE15 MG PO; +PERFOROMIS20 MCG/2 M IN; +TENORETIC 50 501 TAB PO; +YUPELRI175 MCG/3 IN; +ZITHROMAX Z-PA250 MG PO
[2021-09-28 14:48] VITALS: BP 129/56
[2021-09-28 15:30] VITALS: BP 129/56
[2021-09-28 17:11] VITALS: BP 164/59
[2021-09-28 19:00] VITALS: BP 142/71
[2021-09-28 22:03] LABS: HEMATOCRIT 37.3 % (37.0-47.0); HEMOGLOBIN 11.9 g/dl (12.0-16.0); IMMATURE GRANULOCYTES 0.7 % (0.0-5.0); MEAN CORPUSCULAR HGB CONC 31.9 g/dL CAL (32.0-36.0); NEUT# 9.36 thou/uL (2.00-7.15); RED BLOOD COUNT 4.1 mill/uL (4.20-5.60); RED CELL DISTRI WIDTH 14.8 % (11.5-15.5)
[2021-09-29 04:00] VITALS: BP 120/68
[2021-09-29 05:54] LABS: HEMATOCRIT 30.2 % (37.0-47.0); HEMOGLOBIN 9.9 g/dl (12.0-16.0); MEAN CELL VOLUME 88.6 fL CALC (80.0-100.0); MEAN CORPUSCULAR HGB CONC 32.8 g/dL CAL (32.0-36.0); RED BLOOD COUNT 3.41 mill/uL (4.20-5.60); RED CELL DISTRI WIDTH 14.4 % (11.5-15.5)
[2021-09-29 05:58] LABS: BILIRUBIN, TOTAL 0.7 mg/dL (0.0-1.4)
[2021-09-29 06:06] LABS: ALBUMIN 2.9 g/dL (3.2-5.0); CREATININE 3.5 mg/dL (0.5-1.0); POTASSIUM 5.7 mmol/l (3.5-5.1)
[2021-09-29 06:25] LABS: URINE BILIRUBIN - DIPSTICK SMALL (NEGATIVE); URINE BLOOD DIPSTICK TRACE-INTACT (NEGATIVE); URINE CLARITY CLEAR; URINE COLOR YELLOW; URINE GLUCOSE - DIPSTICK NEGATIVE (NEGATIVE); URINE KETONE TRACE mg/dL (NEGATIVE); URINE LEUK ESTERASE NEGATIVE (Negative); URINE NITRITE - DIPSTICK NEGATIVE (Negative); URINE PH 5.5 (4.5-8.0); URINE PROTEIN - DIPSTICK TRACE mg/dL (NEG-TRACE); URINE UROBILINOGEN - DIPSTICK 0.2 E.U./dL (0.2)
[2021-09-29 08:27] VITALS: BP 112/64
[2021-09-29 15:48] VITALS: BP 124/61
[2021-09-29 19:10] VITALS: BP 142/70
[2021-09-30 00:10] VITALS: BP 121/68
[2021-09-30 04:29] VITALS: BP 128/65
[2021-09-30 05:19] LABS: HEMATOCRIT 27.8 % (37.0-47.0); HEMOGLOBIN 8.5 g/dl (12.0-16.0); IMMATURE GRANULOCYTES 0.9 % (0.0-5.0); MEAN CORPUSCULAR HGB CONC 30.6 g/dL CAL (32.0-36.0); NEUT# 5.88 thou/uL (2.00-7.15); RED BLOOD COUNT 2.93 mill/uL (4.20-5.60); RED CELL DISTRI WIDTH 14.5 % (11.5-15.5)
[2021-09-30 05:26] LABS: MEAN CELL VOLUME 94.9 fL CALC (80.0-100.0)
[2021-09-30 05:47] LABS: ALBUMIN 2.8 g/dL (3.2-5.0); CREATININE 2.7 mg/dL (0.5-1.0)
[2021-09-30 05:50] LABS: POTASSIUM 4.4 mmol/l (3.5-5.1)
[2021-09-30 05:56] LABS: ALBUMIN 2.8 g/dL (3.2-5.0); CREATININE 2.6 mg/dL (0.5-1.0); TOTAL PROTEIN 5.5 g/dL (6.3-8.2)
[2021-09-30 06:00] LABS: BILIRUBIN, TOTAL 0.4 mg/dL (0.0-1.4); POTASSIUM 4.4 mmol/l (3.5-5.1)
[2021-09-30 07:20] VITALS: BP 137/79
[2021-09-30 15:21] VITALS: BP 119/58
[2021-09-30 19:00] VITALS: BP 115/58
[2021-10-01] VITALS (7 sets, daily range): BP systolic 112–125; BP diastolic 58–68
[2021-10-01 05:32] LABS: HEMATOCRIT 26.6 % (37.0-47.0); HEMOGLOBIN 8.1 g/dl (12.0-16.0); MEAN CELL VOLUME 95.7 fL CALC (80.0-100.0); MEAN CORPUSCULAR HGB 29.1 pG CALC (26.0-32.0); MEAN CORPUSCULAR HGB CONC 30.5 g/dL CAL (32.0-36.0); RED BLOOD COUNT 2.78 mill/uL (4.20-5.60); RED CELL DISTRI WIDTH 14.3 % (11.5-15.5)
[2021-10-01 05:37] LABS: ALBUMIN 2.7 g/dL (3.2-5.0); CREATININE 2.3 mg/dL (0.5-1.0); POTASSIUM 4.1 mmol/l (3.5-5.1)
[2021-10-01 05:43] LABS: MAGNESIUM 1.2 mg/dL (1.6-2.3)
[2021-10-02 04:00] VITALS: BP 157/61
[2021-10-02 05:01] LABS: HEMATOCRIT 30.6 % (37.0-47.0); HEMOGLOBIN 9.6 g/dl (12.0-16.0); MEAN CELL VOLUME 94.4 fL CALC (80.0-100.0); MEAN CORPUSCULAR HGB 29.6 pG CALC (26.0-32.0); MEAN CORPUSCULAR HGB CONC 31.4 g/dL CAL (32.0-36.0); RED BLOOD COUNT 3.24 mill/uL (4.20-5.60); RED CELL DISTRI WIDTH 14.3 % (11.5-15.5)
[2021-10-02 05:22] LABS: ALBUMIN 2.7 g/dL (3.2-5.0); CREATININE 2.2 mg/dL (0.5-1.0); POTASSIUM 3.9 mmol/l (3.5-5.1)
[2021-10-02 05:23] LABS: CREATININE 2.3 mg/dL (0.5-1.0); MAGNESIUM 2.3 mg/dL (1.6-2.3); POTASSIUM 3.9 mmol/l (3.5-5.1)
[2021-10-02 08:14] VITALS: BP 126/65
[2021-10-02 08:28] VITALS: BP 126/65
[2021-10-02] MEDS ORDERED: ATENOLOL50 MG PO (11:27)
[2021-10-02] MEDS ORDERED: PROTONIX40 M2 PO (11:29)
== END 2021-10-02 12:57 | disposition home or self-care (01) ==
LOC: MS2 14:21
PROVIDERS: Internal Medicine Nephrology; Nurse Practitioner; ADMIT Surgery; ATTEND Internal Medicine
PROC: 30233N1 Transfusion of Nonautologous Red Blood Cells into Peripheral Vein, Percutaneous Approach (ICD-10-PCS; principal; 2021-10-01)
DX: R10.84 Generalized abdominal pain (principal); R11.2 Nausea with vomiting, unspecified; R19.5 Other fecal abnormalities; N17.0 Acute kidney failure with tubular necrosis; I95.9 Hypotension, unspecified; E83.42 Hypomagnesemia; E86.0 Dehydration; E87.2 Acidosis; E86.9 Volume depletion, unspecified; E87.5 Hyperkalemia; I12.9 Hypertensive chronic kidney disease with stage 1 through stage 4 chronic kidney disease, or unspecified chronic kidney disease; N18.30 Chronic kidney disease, stage 3 unspecified; D63.1 Anemia in chronic kidney disease; J43.9 Emphysema, unspecified; E78.5 Hyperlipidemia, unspecified; G89.4 Chronic pain syndrome; R62.7 Adult failure to thrive; F17.200 Nicotine dependence, unspecified, uncomplicated; Z68.24 Body mass index [BMI] 24.0-24.9, adult; Z90.49 Acquired absence of other specified parts of digestive tract; Z20.822 Contact with and (suspected) exposure to COVID-19
CPT/HCPCS: G0378; G0379; J3475; J7626; P9016; S0164

== ENCOUNTER 2021-11-01 06:55 | Day surgery (SDC) | payer MEDICARE, MEDICAID ==
[~2021-11-01] VITALS: Ht 170.2 cm; Wt 86.2 kg
[~2021-11-01 06:55] MED LIST changes: +ATENOLOL50 MG PO; +PROTONIX40 M2 PO
[2021-11-01 12:17] VITALS: BP 181/84
== END 2021-11-01 10:39 | disposition home or self-care (01) ==
LOC: ENDO 06:55 → ORM 09:00 → ENDO 10:39
PROVIDERS: ATTEND Surgery
PROC: 0DBL8ZX Excision of Transverse Colon, Via Natural or Artificial Opening Endoscopic, Diagnostic (ICD-10-PCS; principal; 2021-11-01)
PROC: 0DB98ZX Excision of Duodenum, Via Natural or Artificial Opening Endoscopic, Diagnostic (ICD-10-PCS; 2021-11-01)
PROC: 0DB68ZX Excision of Stomach, Via Natural or Artificial Opening Endoscopic, Diagnostic (ICD-10-PCS; 2021-11-01)
DX: K57.31 Diverticulosis of large intestine without perforation or abscess with bleeding (principal); K51.911 Ulcerative colitis, unspecified with rectal bleeding; K31.9 Disease of stomach and duodenum, unspecified; K64.4 Residual hemorrhoidal skin tags; K29.51 Unspecified chronic gastritis with bleeding; K44.9 Diaphragmatic hernia without obstruction or gangrene; D64.9 Anemia, unspecified; I25.10 Atherosclerotic heart disease of native coronary artery without angina pectoris; I12.9 Hypertensive chronic kidney disease with stage 1 through stage 4 chronic kidney disease, or unspecified chronic kidney disease; N18.9 Chronic kidney disease, unspecified; E78.5 Hyperlipidemia, unspecified; G89.4 Chronic pain syndrome; F17.200 Nicotine dependence, unspecified, uncomplicated

== ENCOUNTER 2021-12-27 16:26 | Observation (INO) | payer MEDICARE, MEDICAID ==
[2021-12-27] VITALS (12 sets, daily range): BP systolic 131–158; BP diastolic 58–116
[~2021-12-27] VITALS: Ht 170.2 cm; Wt 91.0 kg
[2021-12-27 18:04] LABS: HEMOGLOBIN 10.9 g/dl (12.0-16.0); MEAN CELL VOLUME 98.7 fL CALC (80.0-100.0); MEAN CORPUSCULAR HGB 28.7 pG CALC (26.0-32.0); MEAN CORPUSCULAR HGB CONC 29.1 g/dL CAL (32.0-36.0); NEUT# 16.41 thou/uL (2.00-7.15); RED BLOOD COUNT 3.8 mill/uL (4.20-5.60); RED CELL DISTRI WIDTH 13.7 % (11.5-15.5)
[2021-12-27 18:05] LABS: HEMATOCRIT 37.5 % (37.0-47.0)
[2021-12-27 18:14] LABS: BILIRUBIN, TOTAL 0.4 mg/dL (0.0-1.4); CREATININE 2.6 mg/dL (0.5-1.0)
[2021-12-27 18:16] LABS: TOTAL PROTEIN 8.1 g/dL (6.3-8.2)
[2021-12-27 18:44] LABS: URINE BILIRUBIN - DIPSTICK NEGATIVE (NEGATIVE); URINE BLOOD DIPSTICK TRACE-LYSED (NEGATIVE); URINE COLOR YELLOW; URINE GLUCOSE - DIPSTICK NEGATIVE (NEGATIVE); URINE KETONE NEGATIVE (NEGATIVE); URINE LEUK ESTERASE NEGATIVE (NEGATIVE); URINE PROTEIN - DIPSTICK 30 mg/dL (NEG-TRACE); URINE SPECIFIC GRAVITY 1.025; URINE UROBILINOGEN - DIPSTICK 0.2 E.U./dL (0.2)
[2021-12-27 19:44] LABS: URINE NITRITE - DIPSTICK NEGATIVE (Negative)
[2021-12-27 19:45] LABS: URINE RBC 0-2 RBC/hpf (0-5); URINE SQUAMOUS EPITHELIAL CELL FEW EPI/hpf (0-FEW); URINE WBC 0-2 WBC/hpf (0-5)
[2021-12-28] VITALS (47 sets, daily range): BP systolic 129–180; BP diastolic 57–80
[2021-12-28 05:51] LABS: HEMATOCRIT 36.3 % (37.0-47.0); HEMOGLOBIN 10.8 g/dl (12.0-16.0); MEAN CELL VOLUME 99.5 fL CALC (80.0-100.0); MEAN CORPUSCULAR HGB 29.6 pG CALC (26.0-32.0); MEAN CORPUSCULAR HGB CONC 29.8 g/dL CAL (32.0-36.0); RED BLOOD COUNT 3.65 mill/uL (4.20-5.60); RED CELL DISTRI WIDTH 13.8 % (11.5-15.5)
[2021-12-28 05:56] LABS: CREATININE 2.4 mg/dL (0.5-1.0)
[2021-12-28 05:58] LABS: MAGNESIUM 1.6 mg/dL (1.6-2.3); POTASSIUM 5.6 mmol/l (3.5-5.1)
[2021-12-29] VITALS (17 sets, daily range): BP systolic 133–169; BP diastolic 66–83
[2021-12-29 05:21] LABS: HEMATOCRIT 36.6 % (37.0-47.0); MEAN CELL VOLUME 97.6 fL CALC (80.0-100.0); MEAN CORPUSCULAR HGB 29.3 pG CALC (26.0-32.0); MEAN CORPUSCULAR HGB CONC 30.1 g/dL CAL (32.0-36.0); RED BLOOD COUNT 3.75 mill/uL (4.20-5.60); RED CELL DISTRI WIDTH 13.3 % (11.5-15.5)
[2021-12-29 05:34] LABS: CREATININE 2.3 mg/dL (0.5-1.0); MAGNESIUM 1.5 mg/dL (1.6-2.3)
[2021-12-29 05:40] LABS: POTASSIUM 5.5 mmol/l (3.5-5.1)
[2021-12-30 04:11] VITALS: BP 150/67
[2021-12-30 05:42] LABS: HEMATOCRIT 36.3 % (37.0-47.0); MEAN CELL VOLUME 95.8 fL CALC (80.0-100.0); MEAN CORPUSCULAR HGB CONC 30.3 g/dL CAL (32.0-36.0); RED BLOOD COUNT 3.79 mill/uL (4.20-5.60); RED CELL DISTRI WIDTH 13.3 % (11.5-15.5)
[2021-12-30 05:57] LABS: CREATININE 2.4 mg/dL (0.5-1.0)
[2021-12-30 05:58] LABS: MAGNESIUM 1.9 mg/dL (1.6-2.3); POTASSIUM 5.8 mmol/l (3.5-5.1)
[2021-12-30 08:07] VITALS: BP 146/67
[2021-12-30 10:35] VITALS: BP 161/81
[2021-12-30] MEDS ORDERED: ZITHROMAX500 MG PO (12:13)
[2021-12-30] MEDS ORDERED: MEDDOSEPAK PO (12:14)
[2021-12-30] MEDS ORDERED: LASIX 40 MG TAB40 MG PO (12:15)
== END 2021-12-30 15:08 | disposition home or self-care (01) ==
LOC: ED 16:26 → MS2 18:51 → ICU 18:51 → MS2 12-29 13:08
PROVIDERS: Nurse Practitioner; ADMIT Hospitalist; ATTEND Hospitalist
PROC: 5A09357 Assistance with Respiratory Ventilation, Less than 24 Consecutive Hours, Continuous Positive Airway Pressure (ICD-10-PCS; principal; 2021-12-28)
DX: I13.0 Hypertensive heart and chronic kidney disease with heart failure and stage 1 through stage 4 chronic kidney disease, or unspecified chronic kidney disease (principal); I50.9 Heart failure, unspecified; J43.9 Emphysema, unspecified; J96.21 Acute and chronic respiratory failure with hypoxia; N18.4 Chronic kidney disease, stage 4 (severe); E78.5 Hyperlipidemia, unspecified; K59.09 Other constipation; G89.4 Chronic pain syndrome; I25.2 Old myocardial infarction; F17.200 Nicotine dependence, unspecified, uncomplicated; Z99.81 Dependence on supplemental oxygen; Z20.822 Contact with and (suspected) exposure to COVID-19
CPT/HCPCS: J3475

== ENCOUNTER 2022-02-24 07:09 | Emergency (ER) | payer MEDICARE, MEDICAID ==
[~2022-02-24] VITALS: Ht 170.2 cm; Wt 86.3 kg
[~2022-02-24 07:09] MED LIST changes: +LASIX 40 MG TAB40 MG PO; +ZITHROMAX500 MG PO
[2022-02-24 07:20] VITALS: BP 176/77
[2022-02-24 07:31] VITALS: BP 177/83
[2022-02-24 07:37] VITALS: BP 174/81
[2022-02-24 08:00] VITALS: BP 166/80
[2022-02-24 08:31] VITALS: BP 168/73
[2022-02-24] MEDS ORDERED: COLCHICINE0.6 M2 PO (08:44)
[2022-02-24 08:53] VITALS: BP 168/73
== END 2022-02-24 09:08 | disposition home or self-care (01) ==
LOC: ED 07:09
DX: M10.031 Idiopathic gout, right wrist (principal); I12.9 Hypertensive chronic kidney disease with stage 1 through stage 4 chronic kidney disease, or unspecified chronic kidney disease; E11.22 Type 2 diabetes mellitus with diabetic chronic kidney disease; N18.9 Chronic kidney disease, unspecified; J43.9 Emphysema, unspecified; I25.10 Atherosclerotic heart disease of native coronary artery without angina pectoris; E78.5 Hyperlipidemia, unspecified; I25.2 Old myocardial infarction

== ENCOUNTER 2022-03-09 09:30 | Inpatient (IN) | payer MEDICARE, MEDICAID ==
[~2022-03-09] VITALS: Ht 170.2 cm; Wt 93.0 kg
[~2022-03-09 09:30] MED LIST changes: +COLCHICINE0.6 M2 PO; -OXYCODONE15 MG PO; +OXYCODONE20 M1 PO
[2022-03-09 10:59] LABS: ALBUMIN 3.9 g/dL (3.2-5.0); BILIRUBIN, TOTAL 0.3 mg/dL (0.0-1.4); CREATININE 2.9 mg/dL (0.5-1.0); TOTAL PROTEIN 7.2 g/dL (6.3-8.2)
[2022-03-09 11:03] LABS: POTASSIUM 5.8 mmol/l (3.5-5.1)
[2022-03-09 11:15] LABS: HEMATOCRIT 37.3 % (37.0-47.0); HEMOGLOBIN 10.7 g/dl (12.0-16.0); IMMATURE GRANULOCYTES 1.4 % (0.0-5.0); MEAN CELL VOLUME 99.7 fL CALC (80.0-100.0); MEAN CORPUSCULAR HGB 28.6 pG CALC (26.0-32.0); MEAN CORPUSCULAR HGB CONC 28.7 g/dL CAL (32.0-36.0); NEUT# 4.87 thou/uL (2.00-7.15); RED BLOOD COUNT 3.74 mill/uL (4.20-5.60); RED CELL DISTRI WIDTH 15.2 % (11.5-15.5)
[2022-03-09 16:36] VITALS: BP 180/76
[2022-03-09] MEDS ORDERED: PREDNISONE10 MG PO (16:45)
[2022-03-09] MEDS ORDERED: PRIMIDONE50 MG PO (16:45)
[2022-03-09] MEDS ORDERED: GUANFACINE ER1 MG PO (16:46)
[2022-03-09] MEDS ORDERED: BREZTRI AEROSPH1 AER IN (16:46)
[2022-03-09] MEDS ORDERED: IPRATROPIU0.5 MG/3 M PO (16:48)
[2022-03-09] MEDS ORDERED: ATENOLOL50 MG PO (16:49)
[2022-03-09] MEDS ORDERED: PROTONIX40 M2 PO (16:49)
[2022-03-09 19:12] VITALS: BP 150/65
[2022-03-10 00:10] VITALS: BP 163/75
[2022-03-10 04:25] VITALS: BP 169/79
[2022-03-10 05:31] LABS: HEMATOCRIT 42.1 % (37.0-47.0); HEMOGLOBIN 12.2 g/dl (12.0-16.0); MEAN CELL VOLUME 99.8 fL CALC (80.0-100.0); MEAN CORPUSCULAR HGB 28.9 pG CALC (26.0-32.0); RED BLOOD COUNT 4.22 mill/uL (4.20-5.60); RED CELL DISTRI WIDTH 14.7 % (11.5-15.5)
[2022-03-10 06:33] LABS: CREATININE 2.3 mg/dL (0.5-1.0)
[2022-03-10 06:38] LABS: POTASSIUM 6.7 mmol/l (3.5-5.1)
[2022-03-10 07:10] VITALS: BP 171/78
[2022-03-10 08:40] LABS: CREATININE 2.2 mg/dL (0.5-1.0)
[2022-03-10 08:47] LABS: POTASSIUM 5.8 mmol/l (3.5-5.1)
[2022-03-10 10:50] VITALS: BP 178/84
[2022-03-10 15:06] VITALS: BP 171/67
[2022-03-10 19:06] VITALS: BP 167/76
[2022-03-11] VITALS (9 sets, daily range): BP systolic 152–193; BP diastolic 65–80
[2022-03-11 05:22] LABS: HEMATOCRIT 40.6 % (37.0-47.0); HEMOGLOBIN 11.8 g/dl (12.0-16.0); MEAN CORPUSCULAR HGB 28.8 pG CALC (26.0-32.0); MEAN CORPUSCULAR HGB CONC 29.1 g/dL CAL (32.0-36.0); RED BLOOD COUNT 4.1 mill/uL (4.20-5.60); RED CELL DISTRI WIDTH 14.9 % (11.5-15.5)
[2022-03-11 05:37] LABS: MAGNESIUM 1.8 mg/dL (1.6-2.3)
[2022-03-11 05:42] LABS: POTASSIUM 5.4 mmol/l (3.5-5.1)
[2022-03-11] MEDS ORDERED: ZITHROMAX Z-PA250 MG PO (08:47)
[2022-03-11] MEDS ORDERED: AZITHROMYCIN500 MG PO (08:48)
[2022-03-11] MEDS ORDERED: LASIX 40 MG TAB40 MG PO (08:49)
[2022-03-11] MEDS ORDERED: FUROSEMIDE20 MG PO (08:49)
[2022-03-11] MEDS ORDERED: ARNUITY EL50 MCG/ACT (08:50)
[2022-03-11] MEDS ORDERED: IPRATROPIU0.5 MG/3 M IN (08:51)
[2022-03-11] MEDS ORDERED: LISINOPRIL20 M1 PO (08:52)
[2022-03-11] MEDS ORDERED: NARCAN4 MG/0.1 M (08:53)
[2022-03-11] MEDS ORDERED: METHYLPREDNISOLO4 M1 PO (08:53)
[2022-03-11 18:47] LABS: URINE BILIRUBIN - DIPSTICK NEGATIVE (NEGATIVE); URINE BLOOD DIPSTICK NEGATIVE (NEGATIVE); URINE COLOR YELLOW; URINE GLUCOSE - DIPSTICK NEGATIVE (NEGATIVE); URINE KETONE NEGATIVE (NEGATIVE); URINE LEUK ESTERASE NEGATIVE (NEGATIVE); URINE PROTEIN - DIPSTICK NEGATIVE (NEG-TRACE); URINE SPECIFIC GRAVITY 1.015; URINE UROBILINOGEN - DIPSTICK 0.2 E.U./dL (0.2)
[2022-03-11 18:48] LABS: URINE NITRITE - DIPSTICK POSITIVE (Negative)
[2022-03-11 18:58] LABS: URINE BACTERIA MANY hpf
[2022-03-12 00:22] VITALS: BP 180/80
[2022-03-12 05:10] VITALS: BP 184/84
[2022-03-12 06:11] LABS: HEMATOCRIT 41.6 % (37.0-47.0); HEMOGLOBIN 12.1 g/dl (12.0-16.0); IMMATURE GRANULOCYTES 0.5 % (0.0-5.0); MEAN CORPUSCULAR HGB 28.8 pG CALC (26.0-32.0); MEAN CORPUSCULAR HGB CONC 29.1 g/dL CAL (32.0-36.0); NEUT# 3.89 thou/uL (2.00-7.15); RED BLOOD COUNT 4.2 mill/uL (4.20-5.60); RED CELL DISTRI WIDTH 14.9 % (11.5-15.5)
[2022-03-12 06:27] LABS: CREATININE 1.9 mg/dL (0.5-1.0); MAGNESIUM 1.6 mg/dL (1.6-2.3); POTASSIUM 5.1 mmol/l (3.5-5.1)
[2022-03-12 09:28] VITALS: BP 168/73
[2022-03-12 12:31] VITALS: BP 155/80
[2022-03-12 16:38] VITALS: BP 150/81
[2022-03-12 19:05] VITALS: BP 134/70
[2022-03-13 00:33] VITALS: BP 136/85
[2022-03-13 04:28] VITALS: BP 140/54
[2022-03-13 05:50] LABS: HEMATOCRIT 43.9 % (37.0-47.0); HEMOGLOBIN 12.9 g/dl (12.0-16.0); MEAN CELL VOLUME 98.2 fL CALC (80.0-100.0); MEAN CORPUSCULAR HGB 28.9 pG CALC (26.0-32.0); MEAN CORPUSCULAR HGB CONC 29.4 g/dL CAL (32.0-36.0); RED BLOOD COUNT 4.47 mill/uL (4.20-5.60); RED CELL DISTRI WIDTH 14.5 % (11.5-15.5)
[2022-03-13 06:21] LABS: MAGNESIUM 1.4 mg/dL (1.6-2.3); POTASSIUM 4.9 mmol/l (3.5-5.1)
[2022-03-13 06:54] VITALS: BP 150/71
[2022-03-13 11:49] VITALS: BP 128/53
[2022-03-13 15:50] VITALS: BP 120/58
[2022-03-13 19:16] VITALS: BP 136/70
[2022-03-14] VITALS (8 sets, daily range): BP systolic 129–152; BP diastolic 62–73
[2022-03-14 06:12] LABS: HEMATOCRIT 45.1 % (37.0-47.0); MEAN CELL VOLUME 99.6 fL CALC (80.0-100.0); MEAN CORPUSCULAR HGB 28.7 pG CALC (26.0-32.0); MEAN CORPUSCULAR HGB CONC 28.8 g/dL CAL (32.0-36.0); RED BLOOD COUNT 4.53 mill/uL (4.20-5.60); RED CELL DISTRI WIDTH 14.6 % (11.5-15.5)
[2022-03-14 06:24] LABS: CREATININE 3.2 mg/dL (0.5-1.0)
[2022-03-14 06:25] LABS: MAGNESIUM 2.9 mg/dL (1.6-2.3); POTASSIUM 5.9 mmol/l (3.5-5.1)
[2022-03-15] VITALS (55 sets, daily range): BP systolic 95–173; BP diastolic 60–93
[2022-03-15 04:16] LABS: URINE BILIRUBIN - DIPSTICK NEGATIVE (NEGATIVE); URINE BLOOD DIPSTICK NEGATIVE (NEGATIVE); URINE CLARITY HAZY; URINE COLOR YELLOW; URINE GLUCOSE - DIPSTICK NEGATIVE (NEGATIVE); URINE KETONE TRACE mg/dL (NEGATIVE); URINE LEUK ESTERASE NEGATIVE (Negative); URINE NITRITE - DIPSTICK POSITIVE (Negative); URINE PROTEIN - DIPSTICK NEGATIVE (NEG-TRACE); URINE UROBILINOGEN - DIPSTICK 0.2 E.U./dL (0.2)
[2022-03-15 04:28] LABS: URINE BACTERIA MODERATE hpf; URINE SQUAMOUS EPITHELIAL CELL FEW EPI/hpf (0-FEW)
[2022-03-15 06:42] LABS: HEMATOCRIT 39.9 % (37.0-47.0); HEMOGLOBIN 11.6 g/dl (12.0-16.0); IMMATURE GRANULOCYTES 0.3 % (0.0-5.0); MEAN CORPUSCULAR HGB 28.8 pG CALC (26.0-32.0); MEAN CORPUSCULAR HGB CONC 29.1 g/dL CAL (32.0-36.0); NEUT# 4.12 thou/uL (2.00-7.15); RED BLOOD COUNT 4.03 mill/uL (4.20-5.60); RED CELL DISTRI WIDTH 14.4 % (11.5-15.5)
[2022-03-15 07:10] LABS: ALBUMIN 3.2 g/dL (3.2-5.0); MAGNESIUM 2.5 mg/dL (1.6-2.3)
[2022-03-15 07:23] LABS: POTASSIUM 5.6 mmol/l (3.5-5.1)
[2022-03-16] VITALS (28 sets, daily range): BP systolic 144–185; BP diastolic 66–113
[2022-03-16 06:19] LABS: HEMOGLOBIN 11.4 g/dl (12.0-16.0); MEAN CELL VOLUME 96.2 fL CALC (80.0-100.0); MEAN CORPUSCULAR HGB 28.9 pG CALC (26.0-32.0); RED BLOOD COUNT 3.95 mill/uL (4.20-5.60); RED CELL DISTRI WIDTH 14.4 % (11.5-15.5)
[2022-03-16 06:39] LABS: ALBUMIN 3.3 g/dL (3.2-5.0); CREATININE 2.9 mg/dL (0.5-1.0); MAGNESIUM 2.4 mg/dL (1.6-2.3); TOTAL PROTEIN 6.4 g/dL (6.3-8.2)
[2022-03-16 06:41] LABS: BILIRUBIN, TOTAL 0.8 mg/dL (0.0-1.4); POTASSIUM 5.4 mmol/l (3.5-5.1)
[2022-03-17] VITALS (26 sets, daily range): BP systolic 120–164; BP diastolic 51–93
[2022-03-17 05:39] LABS: HEMATOCRIT 37.6 % (37.0-47.0); HEMOGLOBIN 11.4 g/dl (12.0-16.0); MEAN CELL VOLUME 95.2 fL CALC (80.0-100.0); MEAN CORPUSCULAR HGB 28.9 pG CALC (26.0-32.0); MEAN CORPUSCULAR HGB CONC 30.3 g/dL CAL (32.0-36.0); RED BLOOD COUNT 3.95 mill/uL (4.20-5.60); RED CELL DISTRI WIDTH 14.6 % (11.5-15.5)
[2022-03-17 05:53] LABS: CREATININE 2.3 mg/dL (0.5-1.0); MAGNESIUM 2.1 mg/dL (1.6-2.3); POTASSIUM 4.8 mmol/l (3.5-5.1)
[2022-03-18] VITALS (23 sets, daily range): BP systolic 91–146; BP diastolic 56–79
[2022-03-18 03:02] LABS: URINE BILIRUBIN - DIPSTICK NEGATIVE (NEGATIVE); URINE BLOOD DIPSTICK SMALL (NEGATIVE); URINE CLARITY SL CLOUDY; URINE COLOR YELLOW; URINE GLUCOSE - DIPSTICK NEGATIVE (NEGATIVE); URINE KETONE NEGATIVE (NEGATIVE); URINE LEUK ESTERASE LARGE (Negative); URINE NITRITE - DIPSTICK NEGATIVE (Negative); URINE PH 7.5 (4.5-8.0); URINE PROTEIN - DIPSTICK 30 mg/dL (NEG-TRACE)
[2022-03-18 03:14] LABS: URINE BACTERIA MANY hpf; URINE SQUAMOUS EPITHELIAL CELL MANY EPI/hpf (0-FEW); URINE WBC 50-100 WBC/hpf (0-5)
[2022-03-18 05:42] LABS: HEMATOCRIT 34.8 % (37.0-47.0); HEMOGLOBIN 10.1 g/dl (12.0-16.0); MEAN CELL VOLUME 97.5 fL CALC (80.0-100.0); MEAN CORPUSCULAR HGB 28.3 pG CALC (26.0-32.0); RED BLOOD COUNT 3.57 mill/uL (4.20-5.60); RED CELL DISTRI WIDTH 14.7 % (11.5-15.5)
[2022-03-18 06:21] LABS: ALBUMIN 2.8 g/dL (3.2-5.0); BILIRUBIN, TOTAL 0.5 mg/dL (0.0-1.4); CREATININE 2.4 mg/dL (0.5-1.0); MAGNESIUM 2.1 mg/dL (1.6-2.3); TOTAL PROTEIN 5.8 g/dL (6.3-8.2)
[2022-03-18 06:25] LABS: POTASSIUM 5.5 mmol/l (3.5-5.1)
[2022-03-19] VITALS (25 sets, daily range): BP systolic 107–139; BP diastolic 51–109
[2022-03-19 06:12] LABS: ALBUMIN 2.8 g/dL (3.2-5.0); CREATININE 2.3 mg/dL (0.5-1.0); POTASSIUM 4.6 mmol/l (3.5-5.1)
[2022-03-20] VITALS (25 sets, daily range): BP systolic 112–154; BP diastolic 52–73
[2022-03-20 05:29] LABS: ALBUMIN 2.7 g/dL (3.2-5.0); CREATININE 2.5 mg/dL (0.5-1.0); POTASSIUM 4.4 mmol/l (3.5-5.1)
[2022-03-21] VITALS (13 sets, daily range): BP systolic 118–146; BP diastolic 56–98
[2022-03-21 05:24] LABS: HEMATOCRIT 28.9 % (37.0-47.0); HEMOGLOBIN 8.8 g/dl (12.0-16.0); MEAN CELL VOLUME 95.1 fL CALC (80.0-100.0); MEAN CORPUSCULAR HGB 28.9 pG CALC (26.0-32.0); MEAN CORPUSCULAR HGB CONC 30.4 g/dL CAL (32.0-36.0); NEUT# 5.24 thou/uL (2.00-7.15); RED BLOOD COUNT 3.04 mill/uL (4.20-5.60); RED CELL DISTRI WIDTH 14.7 % (11.5-15.5)
[2022-03-21 05:35] LABS: CREATININE 2.3 mg/dL (0.5-1.0); MAGNESIUM 1.8 mg/dL (1.6-2.3); POTASSIUM 4.7 mmol/l (3.5-5.1)
[2022-03-21 06:12] LABS: IMMATURE GRANULOCYTES 5.4 % (0.0-5.0)
[2022-03-21] MEDS ORDERED: LEVOFLOXACIN500MG PO (10:17)
[2022-03-21] MEDS ORDERED: OXYCODONE15 MG PO (10:17)
== END 2022-03-21 14:47 | DRG 291 ==
LOC: ED 09:30 → ED-I 13:05 → MS2 14:23 → ED 14:23 → MS2 14:23 → ICU 03-14 14:06 → MS2 03-14 14:06 → ICU 03-15 10:57
PROVIDERS: Emergency Medicine; Internal Medicine; Internal Medicine Nephrology; Nurse Practitioner; ADMIT Hospitalist; ATTEND Internal Medicine
PROC: 02HV33Z Insertion of Infusion Device into Superior Vena Cava, Percutaneous Approach (ICD-10-PCS; principal; 2022-03-10)
PROC: B548ZZA Ultrasonography of Superior Vena Cava, Guidance (ICD-10-PCS; 2022-03-10)
PROC: 5A09357 Assistance with Respiratory Ventilation, Less than 24 Consecutive Hours, Continuous Positive Airway Pressure (ICD-10-PCS; 2022-03-15)
PROC: 0T9B70Z Drainage of Bladder with Drainage Device, Via Natural or Artificial Opening (ICD-10-PCS; 2022-03-18)
DX: I13.0 Hypertensive heart and chronic kidney disease with heart failure and stage 1 through stage 4 chronic kidney disease, or unspecified chronic kidney disease (principal); N17.0 Acute kidney failure with tubular necrosis; J96.22 Acute and chronic respiratory failure with hypercapnia; J96.21 Acute and chronic respiratory failure with hypoxia; I50.33 Acute on chronic diastolic (congestive) heart failure; G92.8 Other toxic encephalopathy; N18.4 Chronic kidney disease, stage 4 (severe); E87.1 Hypo-osmolality and hyponatremia; N39.0 Urinary tract infection, site not specified; E87.3 Alkalosis; J43.9 Emphysema, unspecified; E11.22 Type 2 diabetes mellitus with diabetic chronic kidney disease; I25.10 Atherosclerotic heart disease of native coronary artery without angina pectoris; E87.5 Hyperkalemia; E78.5 Hyperlipidemia, unspecified; G89.4 Chronic pain syndrome; R25.1 Tremor, unspecified; F41.1 Generalized anxiety disorder; I25.2 Old myocardial infarction; F17.200 Nicotine dependence, unspecified, uncomplicated; B95.2 Enterococcus as the cause of diseases classified elsewhere; Z99.81 Dependence on supplemental oxygen; Z88.0 Allergy status to penicillin; Z79.891 Long term (current) use of opiate analgesic; Z20.822 Contact with and (suspected) exposure to COVID-19
CPT/HCPCS: J2060; J3475

== ENCOUNTER 2022-03-28 16:36 | Emergency (ER) | payer MEDICARE, MEDICAID ==
[2022-03-28] VITALS (8 sets, daily range): BP systolic 159–174; BP diastolic 66–83
[~2022-03-28] VITALS: Ht 170.2 cm; Wt 86.0 kg
[~2022-03-28 16:36] MED LIST changes: +AZITHROMYCIN500 MG PO; +IPRATROPIU0.5 MG/3 M IN; +IPRATROPIU0.5 MG/3 M PO; +LEVOFLOXACIN500MG PO; +METHYLPREDNISOLO4 M1 PO; +NARCAN4 MG/0.1 M; +OXYCODONE15 MG PO; +PRIMIDONE50 MG PO
[2022-03-28 18:34] LABS: URINE BILIRUBIN - DIPSTICK NEGATIVE (NEGATIVE); URINE BLOOD DIPSTICK NEGATIVE (NEGATIVE); URINE COLOR YELLOW; URINE GLUCOSE - DIPSTICK NEGATIVE (NEGATIVE); URINE KETONE NEGATIVE (NEGATIVE); URINE LEUK ESTERASE NEGATIVE (NEGATIVE); URINE PROTEIN - DIPSTICK NEGATIVE (NEG-TRACE); URINE UROBILINOGEN - DIPSTICK 0.2 E.U./dL (0.2)
[2022-03-28 18:35] LABS: HEMATOCRIT 34.5 % (37.0-47.0); HEMOGLOBIN 10.3 g/dl (12.0-16.0); MEAN CELL VOLUME 95.8 fL CALC (80.0-100.0); MEAN CORPUSCULAR HGB 28.6 pG CALC (26.0-32.0); MEAN CORPUSCULAR HGB CONC 29.9 g/dL CAL (32.0-36.0); NEUT# 9.65 thou/uL (2.00-7.15); RED BLOOD COUNT 3.6 mill/uL (4.20-5.60); RED CELL DISTRI WIDTH 15.9 % (11.5-15.5); URINE NITRITE - DIPSTICK NEGATIVE (Negative)
[2022-03-28 18:36] LABS: IMMATURE GRANULOCYTES 6.5 % (0.0-5.0)
[2022-03-28 18:54] LABS: CREATININE 1.9 mg/dL (0.5-1.0)
[2022-03-28 18:56] LABS: ALBUMIN 3.8 g/dL (3.2-5.0); BILIRUBIN, TOTAL 0.2 mg/dL (0.0-1.4); POTASSIUM 5.7 mmol/l (3.5-5.1)
[2022-03-28] MEDS ORDERED: SPS15 GM/601 PO (20:07)
== END 2022-03-28 20:51 | disposition home or self-care (01) ==
LOC: ED 16:36
PROVIDERS: Nurse Practitioner
DX: E87.5 Hyperkalemia (principal); I12.9 Hypertensive chronic kidney disease with stage 1 through stage 4 chronic kidney disease, or unspecified chronic kidney disease; E11.22 Type 2 diabetes mellitus with diabetic chronic kidney disease; N18.9 Chronic kidney disease, unspecified; I25.2 Old myocardial infarction; I25.10 Atherosclerotic heart disease of native coronary artery without angina pectoris; J43.9 Emphysema, unspecified; E78.5 Hyperlipidemia, unspecified

== ENCOUNTER 2022-04-10 18:05 | Inpatient (IN) | payer MEDICARE, MEDICAID ==
[~2022-04-10] VITALS: Ht 170.2 cm; Wt 90.9 kg
[2022-04-10] VITALS (9 sets, daily range): BP systolic 135–179; BP diastolic 62–109
[~2022-04-10 18:05] MED LIST changes: +SPS15 GM/601 PO
[2022-04-10 20:38] LABS: HEMATOCRIT 29.4 % (37.0-47.0); HEMOGLOBIN 8.8 g/dl (12.0-16.0); IMMATURE GRANULOCYTES 0.4 % (0.0-5.0); MEAN CELL VOLUME 95.5 fL CALC (80.0-100.0); MEAN CORPUSCULAR HGB 28.6 pG CALC (26.0-32.0); MEAN CORPUSCULAR HGB CONC 29.9 g/dL CAL (32.0-36.0); NEUT# 3.69 thou/uL (2.00-7.15); RED BLOOD COUNT 3.08 mill/uL (4.20-5.60); RED CELL DISTRI WIDTH 14.4 % (11.5-15.5)
[2022-04-10 20:59] LABS: ALBUMIN 3.3 g/dL (3.2-5.0); TOTAL PROTEIN 6.5 g/dL (6.3-8.2)
[2022-04-10 21:02] LABS: BILIRUBIN, TOTAL 0.4 mg/dL (0.0-1.4)
[2022-04-10 21:48] LABS: URINE BILIRUBIN - DIPSTICK NEGATIVE (NEGATIVE); URINE BLOOD DIPSTICK NEGATIVE (NEGATIVE); URINE COLOR YELLOW; URINE GLUCOSE - DIPSTICK NEGATIVE (NEGATIVE); URINE KETONE NEGATIVE (NEGATIVE); URINE LEUK ESTERASE NEGATIVE (NEGATIVE); URINE PH 6.5 (4.5-8.0); URINE PROTEIN - DIPSTICK NEGATIVE (NEG-TRACE); URINE UROBILINOGEN - DIPSTICK 0.2 E.U./dL (0.2)
[2022-04-10 21:52] LABS: URINE NITRITE - DIPSTICK NEGATIVE (Negative)
[2022-04-11 03:37] VITALS: BP 137/63
[2022-04-11 04:29] VITALS: BP 137/63
[2022-04-11 05:27] LABS: HEMATOCRIT 28.3 % (37.0-47.0); HEMOGLOBIN 8.5 g/dl (12.0-16.0); IMMATURE GRANULOCYTES 1.4 % (0.0-5.0); MEAN CELL VOLUME 94.3 fL CALC (80.0-100.0); MEAN CORPUSCULAR HGB 28.3 pG CALC (26.0-32.0); NEUT# 3.92 thou/uL (2.00-7.15); RED CELL DISTRI WIDTH 14.2 % (11.5-15.5)
[2022-04-11 05:48] LABS: ALBUMIN 2.9 g/dL (3.2-5.0); BILIRUBIN, TOTAL 0.3 mg/dL (0.0-1.4); C-REACTIVE PROTEIN 6.8 mg/dL (0-0.9); CREATININE 1.8 mg/dL (0.5-1.0); POTASSIUM 4.3 mmol/l (3.5-5.1); TOTAL PROTEIN 5.7 g/dL (6.3-8.2)
[2022-04-11 07:02] VITALS: BP 156/83
[2022-04-11 16:30] VITALS: BP 163/82
[2022-04-11 19:29] VITALS: BP 142/69
[2022-04-12 00:25] VITALS: BP 140/70
[2022-04-12 04:43] VITALS: BP 144/68
[2022-04-12 05:04] LABS: HEMATOCRIT 25.9 % (37.0-47.0); HEMOGLOBIN 7.9 g/dl (12.0-16.0); MEAN CELL VOLUME 92.8 fL CALC (80.0-100.0); MEAN CORPUSCULAR HGB 28.3 pG CALC (26.0-32.0); MEAN CORPUSCULAR HGB CONC 30.5 g/dL CAL (32.0-36.0); RED BLOOD COUNT 2.79 mill/uL (4.20-5.60); RED CELL DISTRI WIDTH 14.2 % (11.5-15.5)
[2022-04-12 05:31] LABS: CREATININE 1.7 mg/dL (0.5-1.0); MAGNESIUM 1.5 mg/dL (1.6-2.3); POTASSIUM 4.5 mmol/l (3.5-5.1)
[2022-04-12 06:25] VITALS: BP 146/57
[2022-04-12 11:10] VITALS: BP 158/58
[2022-04-12] MEDS ORDERED: DECADRON2 MG PO (11:14)
[2022-04-12] MEDS ORDERED: LEVOFLOXACIN500MG PO (11:15)
== END 2022-04-12 13:08 | DRG 177 ==
LOC: ED 18:05 → ED-I 21:30 → ED 21:53 → MS2 21:54
PROVIDERS: Emergency Medicine; ADMIT Hospitalist; ATTEND Hospitalist
DX: U07.1 COVID-19 (principal); J12.82 Pneumonia due to coronavirus disease 2019; J96.21 Acute and chronic respiratory failure with hypoxia; J44.1 Chronic obstructive pulmonary disease with (acute) exacerbation; J44.0 Chronic obstructive pulmonary disease with (acute) lower respiratory infection; I13.0 Hypertensive heart and chronic kidney disease with heart failure and stage 1 through stage 4 chronic kidney disease, or unspecified chronic kidney disease; N18.4 Chronic kidney disease, stage 4 (severe); I50.9 Heart failure, unspecified; E11.22 Type 2 diabetes mellitus with diabetic chronic kidney disease; E78.5 Hyperlipidemia, unspecified; G89.4 Chronic pain syndrome; Z99.81 Dependence on supplemental oxygen; I25.2 Old myocardial infarction; F17.200 Nicotine dependence, unspecified, uncomplicated
CPT/HCPCS: G0378

== ENCOUNTER 2022-04-23 06:59 | Inpatient (IN) | payer MEDICARE, MEDICAID ==
[2022-04-23] VITALS (81 sets, daily range): BP systolic 125–174; BP diastolic 57–93
[~2022-04-23] VITALS: Ht 170.2 cm; Wt 83.0 kg
[~2022-04-23 06:59] MED LIST changes: +DECADRON2 MG PO
[2022-04-23 07:46] LABS: HEMOGLOBIN 9.4 g/dl (12.0-16.0); IMMATURE GRANULOCYTES 2.7 % (0.0-5.0); MEAN CELL VOLUME 96.5 fL CALC (80.0-100.0); MEAN CORPUSCULAR HGB 27.5 pG CALC (26.0-32.0); MEAN CORPUSCULAR HGB CONC 28.5 g/dL CAL (32.0-36.0); NEUT# 8.71 thou/uL (2.00-7.15); RED BLOOD COUNT 3.42 mill/uL (4.20-5.60); RED CELL DISTRI WIDTH 15.2 % (11.5-15.5)
[2022-04-23 08:03] LABS: URINE BILIRUBIN - DIPSTICK NEGATIVE (NEGATIVE); URINE BLOOD DIPSTICK NEGATIVE (NEGATIVE); URINE COLOR YELLOW; URINE GLUCOSE - DIPSTICK NEGATIVE (NEGATIVE); URINE KETONE NEGATIVE (NEGATIVE); URINE LEUK ESTERASE NEGATIVE (NEGATIVE); URINE PH 5.5 (4.5-8.0); URINE SPECIFIC GRAVITY >=1.030; URINE UROBILINOGEN - DIPSTICK 0.2 E.U./dL (0.2)
[2022-04-23 08:04] LABS: PROTHROMBIN TIME 10.4 SECONDS (9.0-12.5)
[2022-04-23 08:05] LABS: ALBUMIN 3.4 g/dL (3.2-5.0); BILIRUBIN, TOTAL 0.4 mg/dL (0.0-1.4); CREATININE 2.6 mg/dL (0.5-1.0); TOTAL PROTEIN 6.4 g/dL (6.3-8.2)
[2022-04-23 08:05] LABS: URINE NITRITE - DIPSTICK NEGATIVE (Negative); URINE PROTEIN - DIPSTICK Trace mg/dL (NEG-TRACE)
[2022-04-23 08:06] LABS: POTASSIUM 5.2 mmol/l (3.5-5.1)
[2022-04-23 21:06] LABS: ALBUMIN 3.4 g/dL (3.2-5.0); BILIRUBIN, TOTAL 0.4 mg/dL (0.0-1.4); CREATININE 2.5 mg/dL (0.5-1.0); POTASSIUM 5.7 mmol/l (3.5-5.1); TOTAL PROTEIN 6.5 g/dL (6.3-8.2)
[2022-04-24] VITALS (50 sets, daily range): BP systolic 127–181; BP diastolic 65–144
[2022-04-24 05:40] LABS: HEMATOCRIT 29.9 % (37.0-47.0); HEMOGLOBIN 8.5 g/dl (12.0-16.0); IMMATURE GRANULOCYTES 1.6 % (0.0-5.0); MEAN CELL VOLUME 96.8 fL CALC (80.0-100.0); MEAN CORPUSCULAR HGB 27.5 pG CALC (26.0-32.0); MEAN CORPUSCULAR HGB CONC 28.4 g/dL CAL (32.0-36.0); NEUT# 5.09 thou/uL (2.00-7.15); RED BLOOD COUNT 3.09 mill/uL (4.20-5.60)
[2022-04-24 05:49] LABS: BILIRUBIN, TOTAL 0.3 mg/dL (0.0-1.4); CREATININE 2.3 mg/dL (0.5-1.0); TOTAL PROTEIN 5.7 g/dL (6.3-8.2)
[2022-04-24 05:52] LABS: POTASSIUM 5.6 mmol/l (3.5-5.1)
[2022-04-25] VITALS (49 sets, daily range): BP systolic 122–185; BP diastolic 53–124
[2022-04-25 05:33] LABS: HEMATOCRIT 28.9 % (37.0-47.0); HEMOGLOBIN 8.6 g/dl (12.0-16.0); IMMATURE GRANULOCYTES 0.9 % (0.0-5.0); MEAN CELL VOLUME 92.9 fL CALC (80.0-100.0); MEAN CORPUSCULAR HGB 27.7 pG CALC (26.0-32.0); MEAN CORPUSCULAR HGB CONC 29.8 g/dL CAL (32.0-36.0); RED BLOOD COUNT 3.11 mill/uL (4.20-5.60); RED CELL DISTRI WIDTH 15.3 % (11.5-15.5)
[2022-04-25 06:03] LABS: CREATININE 1.8 mg/dL (0.5-1.0); POTASSIUM 4.6 mmol/l (3.5-5.1)
[2022-04-26] VITALS (31 sets, daily range): BP systolic 115–146; BP diastolic 48–87
[2022-04-26 06:13] LABS: CREATININE 1.8 mg/dL (0.5-1.0); MAGNESIUM 1.7 mg/dL (1.6-2.3); POTASSIUM 4.8 mmol/l (3.5-5.1)
[2022-04-27 03:49] VITALS: BP 120/55
[2022-04-27 05:17] LABS: HEMATOCRIT 28.7 % (37.0-47.0); HEMOGLOBIN 8.3 g/dl (12.0-16.0); MEAN CELL VOLUME 96.6 fL CALC (80.0-100.0); MEAN CORPUSCULAR HGB 27.9 pG CALC (26.0-32.0); MEAN CORPUSCULAR HGB CONC 28.9 g/dL CAL (32.0-36.0); RED BLOOD COUNT 2.97 mill/uL (4.20-5.60); RED CELL DISTRI WIDTH 16.1 % (11.5-15.5)
[2022-04-27 05:43] LABS: MAGNESIUM 1.6 mg/dL (1.6-2.3); POTASSIUM 4.8 mmol/l (3.5-5.1)
[2022-04-27 06:19] VITALS: BP 122/59
[2022-04-27 08:00] VITALS: BP 122/59
[2022-04-27 11:23] VITALS: BP 110/48
[2022-04-27] MEDS ORDERED: HYDRALAZINE HCL50 MG PO (11:47)
== END 2022-04-27 14:18 | DRG 190 ==
LOC: ED 06:59 → ED-I 08:40 → ED 09:28 → ICU 09:29 → MS2 04-26 13:51
PROVIDERS: Family Medicine; ADMIT Internal Medicine; ATTEND Internal Medicine
PROC: 0T9B70Z Drainage of Bladder with Drainage Device, Via Natural or Artificial Opening (ICD-10-PCS; principal; 2022-04-23)
PROC: 02HV33Z Insertion of Infusion Device into Superior Vena Cava, Percutaneous Approach (ICD-10-PCS; 2022-04-23)
PROC: 5A09457 Assistance with Respiratory Ventilation, 24-96 Consecutive Hours, Continuous Positive Airway Pressure (ICD-10-PCS; 2022-04-23)
DX: J44.1 Chronic obstructive pulmonary disease with (acute) exacerbation (principal); J96.22 Acute and chronic respiratory failure with hypercapnia; J96.21 Acute and chronic respiratory failure with hypoxia; I50.23 Acute on chronic systolic (congestive) heart failure; J18.9 Pneumonia, unspecified organism; I13.0 Hypertensive heart and chronic kidney disease with heart failure and stage 1 through stage 4 chronic kidney disease, or unspecified chronic kidney disease; N18.4 Chronic kidney disease, stage 4 (severe); N17.9 Acute kidney failure, unspecified; J44.0 Chronic obstructive pulmonary disease with (acute) lower respiratory infection; E11.22 Type 2 diabetes mellitus with diabetic chronic kidney disease; I25.10 Atherosclerotic heart disease of native coronary artery without angina pectoris; D63.1 Anemia in chronic kidney disease; E78.5 Hyperlipidemia, unspecified; I25.2 Old myocardial infarction; G47.33 Obstructive sleep apnea (adult) (pediatric); G89.4 Chronic pain syndrome; F17.200 Nicotine dependence, unspecified, uncomplicated; Z86.16 Personal history of COVID-19
CPT/HCPCS: J1650

== ENCOUNTER 2022-06-25 11:02 | Emergency (ER) | payer MEDICARE, MEDICAID ==
[~2022-06-25] VITALS: Ht 170.2 cm; Wt 84.0 kg
[2022-06-25] VITALS (17 sets, daily range): BP systolic 155–209; BP diastolic 68–104
[~2022-06-25 11:02] MED LIST changes: +HYDRALAZINE HCL50 MG PO
[2022-06-25 12:31] LABS: HEMOGLOBIN 10.6 g/dl (12.0-16.0); IMMATURE GRANULOCYTES 0.4 % (0.0-5.0); MEAN CELL VOLUME 94.8 fL CALC (80.0-100.0); MEAN CORPUSCULAR HGB 27.7 pG CALC (26.0-32.0); MEAN CORPUSCULAR HGB CONC 29.3 g/dL CAL (32.0-36.0); NEUT# 3.4 thou/uL (2.00-7.15); RED BLOOD COUNT 3.82 mill/uL (4.20-5.60); RED CELL DISTRI WIDTH 16.9 % (11.5-15.5)
[2022-06-25 12:36] LABS: HEMATOCRIT 36.2 % (37.0-47.0)
[2022-06-25 12:51] LABS: BILIRUBIN, TOTAL 0.3 mg/dL (0.0-1.4); CREATININE 1.7 mg/dL (0.5-1.0); POTASSIUM 4.7 mmol/l (3.5-5.1); TOTAL PROTEIN 7.1 g/dL (6.3-8.2)
[2022-06-25] MEDS ORDERED: CLONIDINE0.1 MG PO (15:06)
== END 2022-06-25 15:33 | disposition home or self-care (01) ==
LOC: ED 11:02
PROVIDERS: Emergency Medicine
DX: M54.50 Low back pain, unspecified (principal); I12.9 Hypertensive chronic kidney disease with stage 1 through stage 4 chronic kidney disease, or unspecified chronic kidney disease; I25.2 Old myocardial infarction; N18.9 Chronic kidney disease, unspecified; J43.9 Emphysema, unspecified; E11.9 Type 2 diabetes mellitus without complications; E78.5 Hyperlipidemia, unspecified

== ENCOUNTER 2022-07-05 11:00 | Emergency (ER) | payer MEDICARE, MEDICAID ==
[~2022-07-05] VITALS: Ht 170.2 cm; Wt 75.4 kg
[~2022-07-05 11:00] MED LIST changes: +CLONIDINE0.1 MG PO
[2022-07-05 11:54] LABS: HEMATOCRIT 34.7 % (37.0-47.0); HEMOGLOBIN 10.3 g/dl (12.0-16.0); IMMATURE GRANULOCYTES 0.4 % (0.0-5.0); MEAN CELL VOLUME 93.8 fL CALC (80.0-100.0); MEAN CORPUSCULAR HGB 27.8 pG CALC (26.0-32.0); MEAN CORPUSCULAR HGB CONC 29.7 g/dL CAL (32.0-36.0); NEUT# 3.27 thou/uL (2.00-7.15); RED BLOOD COUNT 3.7 mill/uL (4.20-5.60); RED CELL DISTRI WIDTH 16.6 % (11.5-15.5)
[2022-07-05 12:01] LABS: ALBUMIN 4.1 g/dL (3.2-5.0); BILIRUBIN, TOTAL 0.3 mg/dL (0.0-1.4); CREATININE 1.8 mg/dL (0.5-1.0); POTASSIUM 4.8 mmol/l (3.5-5.1)
[2022-07-05 13:34] LABS: URINE BILIRUBIN - DIPSTICK NEGATIVE (NEGATIVE); URINE BLOOD DIPSTICK NEGATIVE (NEGATIVE); URINE CLARITY CLEAR; URINE COLOR YELLOW; URINE GLUCOSE - DIPSTICK NEGATIVE (NEGATIVE); URINE KETONE NEGATIVE (NEGATIVE); URINE LEUK ESTERASE NEGATIVE (Negative); URINE NITRITE - DIPSTICK NEGATIVE (Negative); URINE PH 6.5 (4.5-8.0); URINE PROTEIN - DIPSTICK TRACE mg/dL (NEG-TRACE); URINE SPECIFIC GRAVITY 1.015; URINE UROBILINOGEN - DIPSTICK 0.2 E.U./dL (0.2)
[2022-07-05] MEDS ORDERED: PERCOCET1 TA4 PO (13:38)
[2022-07-05 14:24] VITALS: BP 186/76
== END 2022-07-05 14:42 | disposition home or self-care (01) ==
LOC: ED 11:00
PROVIDERS: Emergency Medicine
DX: I13.0 Hypertensive heart and chronic kidney disease with heart failure and stage 1 through stage 4 chronic kidney disease, or unspecified chronic kidney disease (principal); I50.9 Heart failure, unspecified; E11.22 Type 2 diabetes mellitus with diabetic chronic kidney disease; N18.9 Chronic kidney disease, unspecified; M54.50 Low back pain, unspecified; G89.29 Other chronic pain; J43.9 Emphysema, unspecified; I25.10 Atherosclerotic heart disease of native coronary artery without angina pectoris; I25.2 Old myocardial infarction; Z79.891 Long term (current) use of opiate analgesic

== ENCOUNTER 2022-09-02 18:18 | Emergency (ER) | payer OTHER, MEDICARE, MEDICAID ==
[~2022-09-02] VITALS: Ht 170.2 cm; Wt 84.0 kg
[2022-09-02] VITALS (8 sets, daily range): BP systolic 183–225; BP diastolic 78–165
[~2022-09-02 18:18] MED LIST changes: +PERCOCET1 TA4 PO
[2022-09-02 18:49] LABS: HEMATOCRIT 35.1 % (37.0-47.0); HEMOGLOBIN 10.8 g/dl (12.0-16.0); IMMATURE GRANULOCYTES 0.8 % (0.0-5.0); MEAN CELL VOLUME 91.2 fL CALC (80.0-100.0); MEAN CORPUSCULAR HGB 28.1 pG CALC (26.0-32.0); MEAN CORPUSCULAR HGB CONC 30.8 g/dL CAL (32.0-36.0); NEUT# 3.85 thou/uL (2.00-7.15); RED BLOOD COUNT 3.85 mill/uL (4.20-5.60); RED CELL DISTRI WIDTH 17.2 % (11.5-15.5)
[2022-09-02 19:00] LABS: ALBUMIN 4.5 g/dL (3.2-5.0); BILIRUBIN, TOTAL 0.4 mg/dL (0.0-1.4); CREATININE 2.2 mg/dL (0.5-1.0); TOTAL PROTEIN 7.6 g/dL (6.3-8.2)
[2022-09-02 19:01] LABS: POTASSIUM 5.2 mmol/l (3.5-5.1)
== END 2022-09-02 21:52 | disposition short-term general hospital (02) | DRG 566 ==
LOC: ED 18:18
PROVIDERS: Family Medicine
DX: S22.9XXA Fracture of bony thorax, part unspecified, initial encounter for closed fracture (principal); V49.60XA Unspecified car occupant injured in collision with unspecified motor vehicles in traffic accident, initial encounter; E87.5 Hyperkalemia; I12.9 Hypertensive chronic kidney disease with stage 1 through stage 4 chronic kidney disease, or unspecified chronic kidney disease; N18.9 Chronic kidney disease, unspecified; I25.10 Atherosclerotic heart disease of native coronary artery without angina pectoris; J44.9 Chronic obstructive pulmonary disease, unspecified; E11.22 Type 2 diabetes mellitus with diabetic chronic kidney disease; Z20.822 Contact with and (suspected) exposure to COVID-19

== ENCOUNTER 2022-09-07 07:11 | Observation (INO) | payer OTHER, MEDICARE, MEDICAID ==
[~2022-09-07] VITALS: Ht 170.2 cm; Wt 83.5 kg
[2022-09-07] VITALS (21 sets, daily range): BP systolic 125–193; BP diastolic 52–113
[2022-09-07 07:57] LABS: HEMATOCRIT 32.9 % (37.0-47.0); IMMATURE GRANULOCYTES 0.8 % (0.0-5.0); MEAN CELL VOLUME 94.5 fL CALC (80.0-100.0); MEAN CORPUSCULAR HGB 28.7 pG CALC (26.0-32.0); MEAN CORPUSCULAR HGB CONC 30.4 g/dL CAL (32.0-36.0); NEUT# 4.6 thou/uL (2.00-7.15); RED BLOOD COUNT 3.48 mill/uL (4.20-5.60); RED CELL DISTRI WIDTH 16.4 % (11.5-15.5)
[2022-09-07 08:10] LABS: ALBUMIN 3.9 g/dL (3.2-5.0); BILIRUBIN, TOTAL 0.5 mg/dL (0.0-1.4); TOTAL PROTEIN 7.2 g/dL (6.3-8.2)
[2022-09-07] MEDS ORDERED: BREZTRI AEROSPH1 AER IN (09:36)
[2022-09-07] MEDS ORDERED: CETIRIZINE10 MG PO (09:37)
[2022-09-07] MEDS ORDERED: CALCIUM600 M1 PO (09:37)
[2022-09-07] MEDS ORDERED: PERFOROMIS20 MCG/2 M IN (09:38)
[2022-09-07] MEDS ORDERED: LABETALOL HYDR200 MG PO (09:39)
[2022-09-07] MEDS ORDERED: PREDNISONE10 MG PO (09:39)
[2022-09-07] MEDS ORDERED: OXYCODONE10 M1 PO (09:46)
[2022-09-07] MEDS ORDERED: YUPELRI175 MCG/3 (13:42)
[2022-09-07] MEDS ORDERED: ACETAMIN500 M2 PO (13:53)
[2022-09-07] MEDS ORDERED: IPRATROPIU0.5 MG/3 M IN (13:56)
[2022-09-07] MEDS ORDERED: DOCUSATE PO (13:58)
[2022-09-08 00:15] VITALS: BP 157/74
[2022-09-08 04:10] VITALS: BP 164/69
[2022-09-08 05:48] LABS: HEMOGLOBIN 9.3 g/dl (12.0-16.0); MEAN CELL VOLUME 95.4 fL CALC (80.0-100.0); MEAN CORPUSCULAR HGB 28.6 pG CALC (26.0-32.0); RED BLOOD COUNT 3.25 mill/uL (4.20-5.60)
[2022-09-08 06:15] LABS: CREATININE 1.8 mg/dL (0.5-1.0); MAGNESIUM 1.9 mg/dL (1.6-2.3)
[2022-09-08 06:20] LABS: POTASSIUM 6.1 mmol/l (3.5-5.1)
[2022-09-08 06:30] VITALS: BP 156/73
[2022-09-08 10:19] VITALS: BP 174/70
[2022-09-08 15:42] LABS: CREATININE 1.9 mg/dL (0.5-1.0)
[2022-09-08 15:49] LABS: POTASSIUM 6.4 mmol/l (3.5-5.1)
[2022-09-08 16:45] VITALS: BP 158/75
[2022-09-08 18:50] VITALS: BP 162/75
[2022-09-09] VITALS (11 sets, daily range): BP systolic 154–182; BP diastolic 69–83
[2022-09-09 05:57] LABS: HEMATOCRIT 29.7 % (37.0-47.0); HEMOGLOBIN 9.2 g/dl (12.0-16.0); IMMATURE GRANULOCYTES 0.9 % (0.0-5.0); MEAN CELL VOLUME 93.7 fL CALC (80.0-100.0); NEUT# 2.91 thou/uL (2.00-7.15); RED BLOOD COUNT 3.17 mill/uL (4.20-5.60); RED CELL DISTRI WIDTH 15.6 % (11.5-15.5)
[2022-09-09 06:33] LABS: ALBUMIN 3.2 g/dL (3.2-5.0); CREATININE 1.7 mg/dL (0.5-1.0); MAGNESIUM 1.6 mg/dL (1.6-2.3); POTASSIUM 4.5 mmol/l (3.5-5.1)
[2022-09-09 06:34] LABS: ALBUMIN 3.2 g/dL (3.2-5.0); BILIRUBIN, TOTAL 0.5 mg/dL (0.0-1.4); CREATININE 1.7 mg/dL (0.5-1.0); POTASSIUM 4.5 mmol/l (3.5-5.1)
[2022-09-09 06:42] LABS: TOTAL PROTEIN 5.7 g/dL (6.3-8.2)
[2022-09-10] VITALS (10 sets, daily range): BP systolic 146–167; BP diastolic 66–86
[2022-09-10 05:29] LABS: HEMATOCRIT 32.2 % (37.0-47.0); IMMATURE GRANULOCYTES 1.4 % (0.0-5.0); MEAN CELL VOLUME 92.5 fL CALC (80.0-100.0); MEAN CORPUSCULAR HGB 28.7 pG CALC (26.0-32.0); MEAN CORPUSCULAR HGB CONC 31.1 g/dL CAL (32.0-36.0); NEUT# 3.39 thou/uL (2.00-7.15); RED BLOOD COUNT 3.48 mill/uL (4.20-5.60); RED CELL DISTRI WIDTH 15.6 % (11.5-15.5)
[2022-09-10 05:49] LABS: ALBUMIN 3.1 g/dL (3.2-5.0); BILIRUBIN, TOTAL 0.6 mg/dL (0.0-1.4); CREATININE 1.5 mg/dL (0.5-1.0); POTASSIUM 3.8 mmol/l (3.5-5.1); TOTAL PROTEIN 5.6 g/dL (6.3-8.2)
[2022-09-11] VITALS (10 sets, daily range): BP systolic 149–190; BP diastolic 70–81
[2022-09-11 05:37] LABS: HEMATOCRIT 33.8 % (37.0-47.0); HEMOGLOBIN 10.3 g/dl (12.0-16.0); IMMATURE GRANULOCYTES 2.2 % (0.0-5.0); MEAN CELL VOLUME 93.4 fL CALC (80.0-100.0); MEAN CORPUSCULAR HGB 28.5 pG CALC (26.0-32.0); MEAN CORPUSCULAR HGB CONC 30.5 g/dL CAL (32.0-36.0); NEUT# 3.59 thou/uL (2.00-7.15); RED BLOOD COUNT 3.62 mill/uL (4.20-5.60); RED CELL DISTRI WIDTH 15.7 % (11.5-15.5)
[2022-09-11 06:18] LABS: CREATININE 1.6 mg/dL (0.5-1.0); POTASSIUM 3.8 mmol/l (3.5-5.1)
[2022-09-12 04:47] VITALS: BP 176/70
[2022-09-12 05:33] LABS: ALBUMIN 3.1 g/dL (3.2-5.0); CREATININE 1.6 mg/dL (0.5-1.0); POTASSIUM 3.7 mmol/l (3.5-5.1)
[2022-09-12 06:15] VITALS: BP 153/68
[2022-09-12 10:52] VITALS: BP 161/70
== END 2022-09-12 15:26 | DRG 552 ==
LOC: ED 07:11 → ED-I 12:00 → ED 12:31 → MS2 12:31
PROVIDERS: Family Medicine; Internal Medicine; Internal Medicine Nephrology; Nurse Practitioner Family; ADMIT Internal Medicine; ATTEND Internal Medicine
DX: S22.060A Wedge compression fracture of T7-T8 vertebra, initial encounter for closed fracture (principal); J96.12 Chronic respiratory failure with hypercapnia; J96.11 Chronic respiratory failure with hypoxia; N18.4 Chronic kidney disease, stage 4 (severe); N17.9 Acute kidney failure, unspecified; E86.9 Volume depletion, unspecified; E87.5 Hyperkalemia; I12.9 Hypertensive chronic kidney disease with stage 1 through stage 4 chronic kidney disease, or unspecified chronic kidney disease; E11.22 Type 2 diabetes mellitus with diabetic chronic kidney disease; D63.1 Anemia in chronic kidney disease; I25.10 Atherosclerotic heart disease of native coronary artery without angina pectoris; J43.9 Emphysema, unspecified; G89.4 Chronic pain syndrome; E78.5 Hyperlipidemia, unspecified; I25.2 Old myocardial infarction; V49.40XA Driver injured in collision with unspecified motor vehicles in traffic accident, initial encounter; W22.11XA Striking against or struck by driver side automobile airbag, initial encounter; Z99.81 Dependence on supplemental oxygen
CPT/HCPCS: G0378; J1756

== ENCOUNTER 2023-01-15 19:35 | Observation (INO) | payer MEDICARE, MEDICAID ==
[2023-01-15] VITALS (22 sets, daily range): BP systolic 174–209; BP diastolic 66–88
[~2023-01-15] VITALS: Ht 170.2 cm; Wt 82.0 kg
[~2023-01-15 19:35] MED LIST changes: +ACETAMIN500 M2 PO; +DOCUSATE PO; +LABETALOL HYDR200 MG PO
[2023-01-15 20:31] LABS: BASO% 0.3 % (0-3); EOS% 1.9 % (0-8); HEMATOCRIT 35.7 % (37.0-47.0); HEMOGLOBIN 10.5 g/dl (12.0-16.0); IMMATURE GRANULOCYTES 0.8 % (0.0-5.0); MEAN CELL VOLUME 96.5 fL CALC (80.0-100.0); MEAN CORPUSCULAR HGB 28.4 pG CALC (26.0-32.0); MEAN CORPUSCULAR HGB CONC 29.4 g/dL CAL (32.0-36.0); MONO% 14.6 % (2-13); NEUT# 2.01 thou/uL (2.00-7.15); NEUT% 55.4 % (42-76); RED BLOOD COUNT 3.7 mill/uL (4.20-5.60); RED CELL DISTRI WIDTH 16.4 % (11.5-15.5)
[2023-01-15 20:40] LABS: BILIRUBIN, TOTAL 0.3 mg/dL (0.02-1.3); CREATININE 1.8 mg/dL (0.5-1.0); TOTAL PROTEIN 6.7 g/dL (6.3-8.2)
[2023-01-15 21:56] LABS: URINE BILIRUBIN - DIPSTICK NEGATIVE (NEGATIVE); URINE BLOOD DIPSTICK TRACE-INTACT (NEGATIVE); URINE COLOR YELLOW; URINE GLUCOSE - DIPSTICK NEGATIVE (NEGATIVE); URINE KETONE NEGATIVE (NEGATIVE); URINE LEUK ESTERASE NEGATIVE (NEGATIVE); URINE PH 6.5 (4.5-8.0); URINE PROTEIN - DIPSTICK NEGATIVE (NEG-TRACE); URINE UROBILINOGEN - DIPSTICK 0.2 E.U./dL (0.2)
[2023-01-15 21:57] LABS: URINE NITRITE - DIPSTICK NEGATIVE (Negative)
[2023-01-15] MEDS ORDERED: ESCITALOPRAM OX10 MG PO (22:21)
[2023-01-15] MEDS ORDERED: PRIMIDONE50 MG PO (22:21)
[2023-01-15] MEDS ORDERED: POTASSIUM CHLO10 MEQ PO (22:22)
[2023-01-15] MEDS ORDERED: BUDESONIDE/FORM1 AE1 (22:25)
[2023-01-15] MEDS ORDERED: ACETAMIN500 M2 PO (22:30)
[2023-01-15] MEDS ORDERED: [UNRECOGNIZED DRUG - OTHER] (22:34)
[2023-01-16] VITALS (26 sets, daily range): BP systolic 152–215; BP diastolic 72–156
--- NOTE | 2023-01-16 01:53 | NUR ---
PT ARRIVED TO ICU BED 1 VIA STRETCHER, ORIENTED PT TO ROOM AND CALL LIGHT, DISCUSSED POC, PT VERBALIZED UNDERSTANDING. NOTED WHEN PT AMBULATED FROM STRETCHER TO BED, PT SOB ON EXERTION. NO SIGNS OF DISTRESS NOTED, RESP EVEN AND UNLABORED. PT ON 3L NC, 02 DEP AT HOME. SKIN INTACT. ASSISTED PT TO BSC, VOIDED CLEAR YELLOW URINE. NOTED TRACE EDEMA TO BLE, TEDS IN PLACE. PT HYPERTENSIVE, RN AT BEDSIDE TO ADMINISTER APRESOLINE, PT AGREES WITH PLAN. ADMISSION ASSESSMENT COMPLETED, CALL LIGHT IN REACH,CONTINUE TO MONITOR.
--- NOTE | 2023-01-16 05:36 | NUR ---
PT RESTING IN BED, ASSISTED TO BSC. PT DENIES ANY NEEDS OR COMPLAINTS, ASSISTED BACK TO BED, SOLUMEDROL GIVEN. CALL LIGHT IN REACH,CONTINUE TO MONITOR.
--- NOTE | 2023-01-16 07:11 | NUR ---
RECEIVE REPORT FROM HOME HAMM.
--- NOTE | 2023-01-16 08:00 | NUR ---
PATIENT RESTING IN BED WITH EYE CLOSE. ALERT AND ORIENTED X3. PATIENT CONNECTED TO TELEMETRY SR AT THIS TIME. ASSESSMENT HEAD-TO TOE COMPLETE. NASAL CANNULA AT 3L. PATIENT STABLE AT THE TIME OF THIS NOTE. PT REFERS PAIN. MEDICATION PRN DONE. NOT SOB AT THIS TIME. PT IS EDUCATED ABOUD MEDICATIONS AND NURSING PLAN FOR TODAY. PT REFER UNDERSTAND. SAFETY AND FALL PRECAUTIONS IN PLACE CALL LIGHT WITHIN REACH.
--- NOTE | 2023-01-16 12:20 | NUR ---
PATIENT RESTING IN BED. STABLE AT THE TIME OF THIS NOTE. ANY PAIN DISCOMFORT OR DISTRESS. SAFETY AND FALL PRECUTIONS IN PLACE. CALL LIGHT WITHIN IN REACH.
--- NOTE | 2023-01-16 16:37 | NUR ---
PATIENT REDTIN PLEASANT IN BED. STABLE AT THIS TIME.
--- NOTE | 2023-01-16 20:00 | NUR ---
RECEIVED PATIENT RESTING IN BED . NO S/S OF DISTRESS NOTED. O2 AT 3L IN USE. CALL LIGHT IN REACH.
--- NOTE | 2023-01-16 22:00 | NUR ---
ASSISTED PATIENT IN THE BEDSIDE COMMODE. VITAL SIGN STABLE .CONT. TO MONITOR.
[2023-01-17] VITALS (9 sets, daily range): BP systolic 158–181; BP diastolic 69–85
--- NOTE | 2023-01-17 | NUR ---
PATIENT AWAKE TALKING TO HIS RELATIVE OVER THE PHONE. NO C/O PAIN OR DISCOMFORT. VITAL SIGN STABLE.
--- NOTE | 2023-01-17 00:54 | NUR ---
RT PUT PATIENT ON HER OWN CPAP MACHINE.
--- NOTE | 2023-01-17 02:00 | NUR ---
PATIENT SLEEPING .CPAP IN USE. TOLERATING WELL.
--- NOTE | 2023-01-17 04:00 | NUR ---
RESTING COMFORTABLY. CPAP REMAIN IN USE. NO S/S OF DISTRESS NOTED. CALL LIGHT IN REACH.
[2023-01-17 05:33] LABS: HEMATOCRIT 37.5 % (37.0-47.0); MEAN CORPUSCULAR HGB 27.6 pG CALC (26.0-32.0); MEAN CORPUSCULAR HGB CONC 29.3 g/dL CAL (32.0-36.0); RED BLOOD COUNT 3.99 mill/uL (4.20-5.60); RED CELL DISTRI WIDTH 16.2 % (11.5-15.5)
--- NOTE | 2023-01-17 05:36 | NUR ---
M,EDICATED FOR PAIN PER REQUESTED.
--- NOTE | 2023-01-17 07:00 | NUR ---
RECEIVE REPORT FROM MARIAN ZAPATA.
[2023-01-17 07:01] LABS: ALBUMIN 3.9 g/dL (3.2-5.0); BILIRUBIN, TOTAL 0.3 mg/dL (0.02-1.3); MAGNESIUM 1.7 mg/dL (1.6-2.3); TOTAL PROTEIN 6.6 g/dL (6.3-8.2)
[2023-01-17 07:07] LABS: POTASSIUM 6.3 mmol/l (3.5-5.1)
--- NOTE | 2023-01-17 07:20 | NUR ---
RECEIVE REPORT FROM NEIL ZAPATA. K+6.3. I NOTIFY DR. EPPERSON. ISSUES MEDICAL ORDER WHICH IS COMPLIED.
--- NOTE | 2023-01-17 08:00 | NUR ---
ALERT AND ORIENTED PATIENT X3. ASSESSMENT HEAD-TO-TOE COMPLETE. PATIENT WITH POTASSIUM LEVEL 6.3 TODAY IN THE MORNING. DR. EPPERSON ORDERED TO START PROTOCOL FOR HYPERKALEMIA. PATIENT STABLE AT THE MOMENT. IS EDUCATED ABOUT PROTOCOL FOR HYPERKALEMIA, MEDICINES AND NURSING PLAN FOR TODAY. PATIENT REFERS TO UNDERSTAND. SAFETY AND FALL PRECAUTIONS IN PLACE. CALL LIGHT WITHIN IN REACH.
[2023-01-17 12:15] LABS: CREATININE 2.1 mg/dL (0.5-1.0)
--- NOTE | 2023-01-17 12:30 | NUR ---
Patient stable resting in bed. Safety and fall precautions in place. Call light within in reach.
[2023-01-17 13:15] LABS: POTASSIUM 5.7 mmol/l (3.5-5.1)
--- NOTE | 2023-01-17 16:04 | NUR ---
patient resting pleasant. stable at this time.
--- NOTE | 2023-01-17 19:15 | NUR ---
RECIEVED PATIENT IN BED WITH ON THE BEDSIDE.NO C/O PAIN OR DISCOMFORT. O2 AT 3 L NC IN USE. CALL LIGHT IN REACH.
--- NOTE | 2023-01-17 22:00 | NUR ---
PATIENT RESTING IN BED. O2 AT 3L NC IN USE.NO S/S OF DISTRESS NOTED.
[2023-01-18] VITALS: BP 158/77
[2023-01-18 04:00] VITALS: BP 149/69
[2023-01-18 05:44] LABS: HEMATOCRIT 35.3 % (37.0-47.0); HEMOGLOBIN 10.7 g/dl (12.0-16.0); MEAN CELL VOLUME 93.9 fL CALC (80.0-100.0); MEAN CORPUSCULAR HGB 28.5 pG CALC (26.0-32.0); MEAN CORPUSCULAR HGB CONC 30.3 g/dL CAL (32.0-36.0); RED BLOOD COUNT 3.76 mill/uL (4.20-5.60); RED CELL DISTRI WIDTH 16.1 % (11.5-15.5)
[2023-01-18 05:56] LABS: ALBUMIN 3.7 g/dL (3.2-5.0); CREATININE 2.1 mg/dL (0.5-1.0); MAGNESIUM 1.6 mg/dL (1.6-2.3); POTASSIUM 4.8 mmol/l (3.5-5.1); TOTAL PROTEIN 6.3 g/dL (6.3-8.2)
--- NOTE | 2023-01-18 06:00 | NUR ---
ASSISTED PATIENT TO BEDSIDE COMMODE. OFF CPAP.
--- NOTE | 2023-01-18 08:00 | NUR ---
REPORT RECEIVED FROM OFF GOING NURSE. PATIEN NOTED LYING IN BED. NO ACUTE DISTRESS NOTED. SHE IS A/O 3. O2 @ 3L NC NOTED, NO RESPIRATORY DISTRESS NOTED. LUNGS CLEAR AND DIMINISHED IN ALL LOBES. BOWEL SOUNDS ACTIVE IN ALL FOUR QUADRANTS. IV NOTED IN LEFT FA, HEP LOCK. IV SITE INTACT. TRACE EDEMA NOTED TO JOHAN LOWER EXTREMITIES. SHE IS UP AD ANEL WITH STANDBY ASSIST. SHE DENIES ANY PAIN OR DISCOMFORT AT THIS TIME.
[2023-01-18 08:01] VITALS: BP 161/67
[2023-01-18 08:48] VITALS: BP 162/75
[2023-01-18] MEDS ORDERED: PREDNISONE10 MG PO (08:49)
[2023-01-18 09:24] VITALS: BP 147/70
--- NOTE | 2023-01-18 09:48 | NUR ---
DISCHARGE INSTRUCTIONS GIVEN. PATIENT VERBALIZED UNDERSTANDING.
--- NOTE | 2023-01-18 10:00 | NUR ---
PATIENT TRANSPORTED TO VEHICLE VIA WHEELCHAIR, ACCOMPANIED BY AND SKILLED NURSE.
== END 2023-01-18 10:00 | disposition home health service (06) ==
LOC: ED 19:35 → ICU 01-16 01:37
PROVIDERS: Emergency Medicine; Internal Medicine; ADMIT Internal Medicine; ATTEND Internal Medicine
DX: I13.0 Hypertensive heart and chronic kidney disease with heart failure and stage 1 through stage 4 chronic kidney disease, or unspecified chronic kidney disease (principal); I50.33 Acute on chronic diastolic (congestive) heart failure; J43.9 Emphysema, unspecified; E11.22 Type 2 diabetes mellitus with diabetic chronic kidney disease; N18.32 Chronic kidney disease, stage 3b; J96.11 Chronic respiratory failure with hypoxia; D63.1 Anemia in chronic kidney disease; I25.10 Atherosclerotic heart disease of native coronary artery without angina pectoris; E78.5 Hyperlipidemia, unspecified; G89.4 Chronic pain syndrome; R25.1 Tremor, unspecified; M32.9 Systemic lupus erythematosus, unspecified; E87.5 Hyperkalemia; R26.81 Unsteadiness on feet; I25.2 Old myocardial infarction; Z99.81 Dependence on supplemental oxygen

== ENCOUNTER 2023-02-23 00:49 | Inpatient (IN) | payer MEDICARE, MEDICAID ==
[2023-02-23] VITALS (35 sets, daily range): BP systolic 140–183; BP diastolic 63–93
[~2023-02-23] VITALS: Ht 170.2 cm; Wt 85.0 kg
[~2023-02-23 00:49] MED LIST changes: +BUDESONIDE/FORM1 AE1; +ESCITALOPRAM OX10 MG PO; +POTASSIUM CHLO10 MEQ PO; +[UNRECOGNIZED DRUG - OTHER]
[2023-02-23 01:24] LABS: BASO% 0.1 % (0-3); EOS% 0.4 % (0-8); HEMATOCRIT 43.6 % (37.0-47.0); IMMATURE GRANULOCYTES 0.7 % (0.0-5.0); LYMPH% 9.7 % (15-41); MEAN CELL VOLUME 94.4 fL CALC (80.0-100.0); MEAN CORPUSCULAR HGB 28.4 pG CALC (26.0-32.0); MONO% 6.2 % (2-13); NEUT# 7.77 thou/uL (2.00-7.15); NEUT% 82.9 % (42-76); RED BLOOD COUNT 4.62 mill/uL (4.20-5.60); RED CELL DISTRI WIDTH 16.3 % (11.5-15.5)
[2023-02-23 01:33] LABS: HEMOGLOBIN 13.1 g/dl (12.0-16.0)
[2023-02-23 01:34] LABS: ALBUMIN 4.7 g/dL (3.2-5.0); CREATININE 2.3 mg/dL (0.5-1.0)
[2023-02-23 01:36] LABS: BILIRUBIN, TOTAL 0.4 mg/dL (0.02-1.3); TOTAL PROTEIN 7.9 g/dL (6.3-8.2)
[2023-02-24] VITALS (129 sets, daily range): BP systolic 109–166; BP diastolic 53–82
[2023-02-24 06:05] LABS: BASO% 0.1 % (0-3); EOS% 0.1 % (0-8); HEMATOCRIT 41.7 % (37.0-47.0); HEMOGLOBIN 11.9 g/dl (12.0-16.0); IMMATURE GRANULOCYTES 0.1 % (0.0-5.0); LYMPH% 6.4 % (15-41); MEAN CELL VOLUME 98.8 fL CALC (80.0-100.0); MEAN CORPUSCULAR HGB 28.2 pG CALC (26.0-32.0); MEAN CORPUSCULAR HGB CONC 28.5 g/dL CAL (32.0-36.0); MONO% 8.6 % (2-13); NEUT# 8.32 thou/uL (2.00-7.15); NEUT% 84.7 % (42-76); RED BLOOD COUNT 4.22 mill/uL (4.20-5.60); RED CELL DISTRI WIDTH 16.8 % (11.5-15.5)
[2023-02-24 06:23] LABS: ALBUMIN 3.8 g/dL (3.2-5.0); BILIRUBIN, TOTAL 0.5 mg/dL (0.02-1.3); CREATININE 3.1 mg/dL (0.5-1.0); TOTAL PROTEIN 6.6 g/dL (6.3-8.2)
[2023-02-25] VITALS (87 sets, daily range): BP systolic 135–181; BP diastolic 69–84
[2023-02-25 05:54] LABS: HEMOGLOBIN 10.5 g/dl (12.0-16.0); MEAN CORPUSCULAR HGB CONC 29.9 g/dL CAL (32.0-36.0); RED BLOOD COUNT 3.62 mill/uL (4.20-5.60); RED CELL DISTRI WIDTH 16.7 % (11.5-15.5)
[2023-02-25 05:55] LABS: HEMATOCRIT 35.1 % (37.0-47.0)
[2023-02-25 06:34] LABS: BILIRUBIN, TOTAL 0.4 mg/dL (0.02-1.3); CREATININE 3.8 mg/dL (0.5-1.0); POTASSIUM 4.4 mmol/l (3.5-5.1)
[2023-02-25 06:45] LABS: ALBUMIN 2.9 g/dL (3.2-5.0); MAGNESIUM 1.9 mg/dL (1.6-2.3); TOTAL PROTEIN 5.2 g/dL (6.3-8.2)
[2023-02-26] VITALS (100 sets, daily range): BP systolic 131–192; BP diastolic 63–88
[2023-02-26 02:05] LABS: URINE BILIRUBIN - DIPSTICK NEGATIVE (NEGATIVE); URINE BLOOD DIPSTICK MODERATE (NEGATIVE); URINE COLOR YELLOW; URINE GLUCOSE - DIPSTICK NEGATIVE (NEGATIVE); URINE LEUK ESTERASE TRACE (NEGATIVE); URINE PROTEIN - DIPSTICK 30 mg/dL (NEG-TRACE); URINE UROBILINOGEN - DIPSTICK 0.2 E.U./dL (0.2)
[2023-02-26 02:11] LABS: URINE NITRITE - DIPSTICK POSITIVE (Negative)
[2023-02-26 02:12] LABS: URINE KETONE NEGATIVE (NEGATIVE)
[2023-02-26 02:13] LABS: URINE BACTERIA MODERATE hpf; URINE EPITHELIAL CELLS MODERATE EPI/hpf (0-FEW); URINE YEAST MANY hpf
[2023-02-26 05:11] LABS: CREATININE 2.9 mg/dL (0.5-1.0); MAGNESIUM 1.6 mg/dL (1.6-2.3); POTASSIUM 4.3 mmol/l (3.5-5.1)
[2023-02-26 05:15] LABS: BASO% 0.2 % (0-3); EOS% 1.4 % (0-8); HEMATOCRIT 32.3 % (37.0-47.0); HEMOGLOBIN 9.7 g/dl (12.0-16.0); IMMATURE GRANULOCYTES 1.2 % (0.0-5.0); LYMPH% 8.9 % (15-41); MEAN CELL VOLUME 95.6 fL CALC (80.0-100.0); MEAN CORPUSCULAR HGB 28.7 pG CALC (26.0-32.0); MONO% 12.9 % (2-13); NEUT# 4.84 thou/uL (2.00-7.15); NEUT% 75.4 % (42-76); RED BLOOD COUNT 3.38 mill/uL (4.20-5.60); RED CELL DISTRI WIDTH 16.6 % (11.5-15.5)
[2023-02-27] VITALS (55 sets, daily range): BP systolic 113–166; BP diastolic 53–81
[2023-02-27 05:01] LABS: BASO% 0.1 % (0-3); EOS% 0.8 % (0-8); HEMATOCRIT 32.9 % (37.0-47.0); HEMOGLOBIN 9.8 g/dl (12.0-16.0); IMMATURE GRANULOCYTES 0.5 % (0.0-5.0); LYMPH% 4.7 % (15-41); MEAN CELL VOLUME 95.6 fL CALC (80.0-100.0); MEAN CORPUSCULAR HGB 28.5 pG CALC (26.0-32.0); MEAN CORPUSCULAR HGB CONC 29.8 g/dL CAL (32.0-36.0); MONO% 12.9 % (2-13); NEUT# 7.63 thou/uL (2.00-7.15); RED BLOOD COUNT 3.44 mill/uL (4.20-5.60); RED CELL DISTRI WIDTH 16.7 % (11.5-15.5)
[2023-02-27 05:15] LABS: CREATININE 2.7 mg/dL (0.5-1.0); MAGNESIUM 1.5 mg/dL (1.6-2.3); POTASSIUM 4.3 mmol/l (3.5-5.1)
[2023-02-28] VITALS (48 sets, daily range): BP systolic 108–172; BP diastolic 56–75
[2023-02-28 10:35] LABS: CREATININE 2.5 mg/dL (0.5-1.0); POTASSIUM 4.5 mmol/l (3.5-5.1)
[2023-03-01] VITALS (37 sets, daily range): BP systolic 107–181; BP diastolic 49–74
[2023-03-01 04:26] LABS: HEMATOCRIT 30.5 % (37.0-47.0); HEMOGLOBIN 9.3 g/dl (12.0-16.0); MEAN CELL VOLUME 94.1 fL CALC (80.0-100.0); MEAN CORPUSCULAR HGB 28.7 pG CALC (26.0-32.0); MEAN CORPUSCULAR HGB CONC 30.5 g/dL CAL (32.0-36.0); RED BLOOD COUNT 3.24 mill/uL (4.20-5.60); RED CELL DISTRI WIDTH 16.6 % (11.5-15.5)
[2023-03-01 04:54] LABS: ALBUMIN 2.6 g/dL (3.2-5.0); BILIRUBIN, TOTAL 0.5 mg/dL (0.02-1.3); CREATININE 2.4 mg/dL (0.5-1.0); MAGNESIUM 1.5 mg/dL (1.6-2.3); POTASSIUM 3.9 mmol/l (3.5-5.1); TOTAL PROTEIN 5.4 g/dL (6.3-8.2)
[2023-03-02] VITALS (83 sets, daily range): BP systolic 125–195; BP diastolic 57–97
[2023-03-02 04:17] LABS: HEMATOCRIT 28.4 % (37.0-47.0); HEMOGLOBIN 8.7 g/dl (12.0-16.0); MEAN CELL VOLUME 92.8 fL CALC (80.0-100.0); MEAN CORPUSCULAR HGB 28.4 pG CALC (26.0-32.0); MEAN CORPUSCULAR HGB CONC 30.6 g/dL CAL (32.0-36.0); RED BLOOD COUNT 3.06 mill/uL (4.20-5.60); RED CELL DISTRI WIDTH 16.6 % (11.5-15.5)
[2023-03-02 04:46] LABS: ALBUMIN 2.6 g/dL (3.2-5.0); BILIRUBIN, TOTAL 0.2 mg/dL (0.02-1.3); CREATININE 2.2 mg/dL (0.5-1.0); MAGNESIUM 1.9 mg/dL (1.6-2.3); POTASSIUM 4.5 mmol/l (3.5-5.1); TOTAL PROTEIN 5.4 g/dL (6.3-8.2)
[2023-03-03] VITALS (31 sets, daily range): BP systolic 146–199; BP diastolic 71–96
[2023-03-03 05:51] LABS: HEMATOCRIT 30.3 % (37.0-47.0); HEMOGLOBIN 9.2 g/dl (12.0-16.0); MEAN CELL VOLUME 92.4 fL CALC (80.0-100.0); MEAN CORPUSCULAR HGB CONC 30.4 g/dL CAL (32.0-36.0); RED BLOOD COUNT 3.28 mill/uL (4.20-5.60); RED CELL DISTRI WIDTH 16.5 % (11.5-15.5)
[2023-03-03 06:05] LABS: ALBUMIN 2.5 g/dL (3.2-5.0); BILIRUBIN, TOTAL 0.2 mg/dL (0.02-1.3); CREATININE 1.9 mg/dL (0.5-1.0); MAGNESIUM 1.9 mg/dL (1.6-2.3); POTASSIUM 4.4 mmol/l (3.5-5.1); TOTAL PROTEIN 4.8 g/dL (6.3-8.2)
[2023-03-04] VITALS (18 sets, daily range): BP systolic 132–193; BP diastolic 76–97
[2023-03-04 05:41] LABS: HEMATOCRIT 31.9 % (37.0-47.0); HEMOGLOBIN 9.9 g/dl (12.0-16.0); MEAN CORPUSCULAR HGB 28.9 pG CALC (26.0-32.0); RED BLOOD COUNT 3.43 mill/uL (4.20-5.60); RED CELL DISTRI WIDTH 16.7 % (11.5-15.5)
[2023-03-04 06:06] LABS: CREATININE 2.2 mg/dL (0.5-1.0); POTASSIUM 4.6 mmol/l (3.5-5.1)
== END 2023-03-04 12:15 | disposition short-term general hospital (02) | DRG 335 ==
LOC: ED 00:49 → ED-I 02:17 → ED 05:31 → MS2 05:32 → ICU 15:57
PROVIDERS: Emergency Medicine; Internal Medicine; Internal Medicine Nephrology; Surgery; ADMIT Internal Medicine; ATTEND Internal Medicine
PROC: 0DN80ZZ Release Small Intestine, Open Approach (ICD-10-PCS; principal; 2023-02-23)
PROC: 0WJP4ZZ Inspection of Gastrointestinal Tract, Percutaneous Endoscopic Approach (ICD-10-PCS; 2023-02-23)
PROC: 0BH17EZ Insertion of Endotracheal Airway into Trachea, Via Natural or Artificial Opening (ICD-10-PCS; 2023-02-24)
PROC: 5A1955Z Respiratory Ventilation, Greater than 96 Consecutive Hours (ICD-10-PCS; 2023-02-24)
PROC: 02HV33Z Insertion of Infusion Device into Superior Vena Cava, Percutaneous Approach (ICD-10-PCS; 2023-02-24)
PROC: 5A09357 Assistance with Respiratory Ventilation, Less than 24 Consecutive Hours, Continuous Positive Airway Pressure (ICD-10-PCS; 2023-03-03)
PROC: 0BH17EZ Insertion of Endotracheal Airway into Trachea, Via Natural or Artificial Opening (ICD-10-PCS; 2023-03-03)
PROC: 5A1935Z Respiratory Ventilation, Less than 24 Consecutive Hours (ICD-10-PCS; 2023-03-03)
DX: K56.50 Intestinal adhesions [bands], unspecified as to partial versus complete obstruction (principal); J96.21 Acute and chronic respiratory failure with hypoxia; N17.0 Acute kidney failure with tubular necrosis; J96.22 Acute and chronic respiratory failure with hypercapnia; I13.0 Hypertensive heart and chronic kidney disease with heart failure and stage 1 through stage 4 chronic kidney disease, or unspecified chronic kidney disease; N18.4 Chronic kidney disease, stage 4 (severe); E87.1 Hypo-osmolality and hyponatremia; I50.9 Heart failure, unspecified; I95.9 Hypotension, unspecified; E86.9 Volume depletion, unspecified; E83.42 Hypomagnesemia; J43.9 Emphysema, unspecified; I25.10 Atherosclerotic heart disease of native coronary artery without angina pectoris; E78.5 Hyperlipidemia, unspecified; K59.09 Other constipation; G89.4 Chronic pain syndrome; I25.2 Old myocardial infarction; Z99.81 Dependence on supplemental oxygen; Z88.0 Allergy status to penicillin; Z20.822 Contact with and (suspected) exposure to COVID-19
CPT/HCPCS: J0131; J2185; J2540; J3475; S0164

== ENCOUNTER 2023-07-02 17:52 | Observation (INO) | payer MEDICARE, MEDICAID ==
[~2023-07-02] VITALS: Ht 170.2 cm; Wt 86.4 kg
[2023-07-02] VITALS (18 sets, daily range): BP systolic 124–190; BP diastolic 57–83
[2023-07-02] MEDS ORDERED: PREDNISOLONE5 M1 PO (18:22)
[2023-07-02 18:32] LABS: ALKALINE PHOSPHATASE 86 u/l (38-126); CHLORIDE 103 mmol/l (95-108); CREATININE 2.3 mg/dL (0.5-1.0); GFR FOR AFR.AMER. 25 ML/MIN (>=60 (CALC)); GFR OTHER RACES 21 ML/MIN (>=60 (CALC)); SGOT/AST 32 u/l (9-36); SODIUM 136 mmol/l (137-146)
[2023-07-02 18:33] LABS: ANION GAP 11 (6-22 (CALC)); BILIRUBIN, TOTAL 0.3 mg/dL (0.02-1.3); BUN 45 mg/dL (8-23); BUN/CREATININE RATIO 20 (12-20 (CALC)); CARBON DIOXIDE 28 mmol/l (22-30); POTASSIUM 5.9 mmol/l (3.5-5.1)
[2023-07-02 18:47] LABS: BASO% 0.5 % (0-3); HEMATOCRIT 31.4 % (37.0-47.0); HEMOGLOBIN 9.1 g/dl (12.0-16.0); IMMATURE GRANULOCYTES 0.5 % (0.0-5.0); LYMPH% 6.7 % (15-41); MEAN CORPUSCULAR HGB 29.2 pG CALC (26.0-32.0); MONO% 5.2 % (2-13); NEUT# 3.62 thou/uL (2.00-7.15); NEUT% 86.1 % (42-76); RED BLOOD COUNT 3.12 mill/uL (4.20-5.60); RED CELL DISTRI WIDTH 16.5 % (11.5-15.5)
[2023-07-02 18:51] LABS: MEAN CELL VOLUME 100.6 fL CALC (80.0-100.0)
[2023-07-03] VITALS (10 sets, daily range): BP systolic 118–185; BP diastolic 68–79
[2023-07-03 06:04] LABS: HEMATOCRIT 31.8 % (37.0-47.0); HEMOGLOBIN 9.4 g/dl (12.0-16.0); MEAN CORPUSCULAR HGB 29.8 pG CALC (26.0-32.0); MEAN CORPUSCULAR HGB CONC 29.6 g/dL CAL (32.0-36.0); RED BLOOD COUNT 3.15 mill/uL (4.20-5.60); RED CELL DISTRI WIDTH 16.2 % (11.5-15.5)
[2023-07-03 06:08] LABS: ALBUMIN 3.7 g/dL (3.2-5.0); BILIRUBIN, TOTAL 0.3 mg/dL (0.02-1.3); CREATININE 2.2 mg/dL (0.5-1.0); MAGNESIUM 1.8 mg/dL (1.6-2.3); TOTAL PROTEIN 6.8 g/dL (6.3-8.2)
[2023-07-03 06:10] LABS: POTASSIUM 5.8 mmol/l (3.5-5.1)
[2023-07-04 04:53] VITALS: BP 170/69
[2023-07-04 05:18] LABS: HEMATOCRIT 34.5 % (37.0-47.0); HEMOGLOBIN 10.1 g/dl (12.0-16.0); IMMATURE GRANULOCYTES 1.8 % (0.0-5.0); LYMPH% 7.1 % (15-41); MEAN CELL VOLUME 100.3 fL CALC (80.0-100.0); MEAN CORPUSCULAR HGB 29.4 pG CALC (26.0-32.0); MEAN CORPUSCULAR HGB CONC 29.3 g/dL CAL (32.0-36.0); NEUT# 3.53 thou/uL (2.00-7.15); NEUT% 89.1 % (42-76); RED BLOOD COUNT 3.44 mill/uL (4.20-5.60); RED CELL DISTRI WIDTH 15.9 % (11.5-15.5)
[2023-07-04 05:44] LABS: ALBUMIN 3.8 g/dL (3.2-5.0); CREATININE 2.3 mg/dL (0.5-1.0)
[2023-07-04 05:46] LABS: ALBUMIN 3.9 g/dL (3.2-5.0); CREATININE 2.4 mg/dL (0.5-1.0); MAGNESIUM 1.7 mg/dL (1.6-2.3); TOTAL PROTEIN 6.9 g/dL (6.3-8.2)
[2023-07-04 05:47] LABS: POTASSIUM 5.5 mmol/l (3.5-5.1)
[2023-07-04 05:48] LABS: BILIRUBIN, TOTAL 0.5 mg/dL (0.02-1.3); POTASSIUM 5.5 mmol/l (3.5-5.1)
[2023-07-04 05:52] LABS: URINE BILIRUBIN - DIPSTICK Negative (NEGATIVE); URINE BLOOD DIPSTICK Negative (NEGATIVE); URINE GLUCOSE - DIPSTICK Negative (NEGATIVE); URINE KETONE Negative (NEGATIVE); URINE LEUK ESTERASE Negative (NEGATIVE); URINE NITRITE - DIPSTICK Negative (Negative); URINE PROTEIN - DIPSTICK Negative (NEG-TRACE); URINE SPECIFIC GRAVITY 1.015; URINE UROBILINOGEN - DIPSTICK 0.2 E.U./dL (0.2)
[2023-07-04 05:53] LABS: URINE COLOR Yellow
[2023-07-04 06:48] VITALS: BP 163/74
[2023-07-04 12:37] VITALS: BP 158/63
[2023-07-04 16:05] VITALS: BP 151/66
[2023-07-04 19:22] VITALS: BP 150/60
[2023-07-05 00:22] VITALS: BP 180/68
[2023-07-05 04:42] VITALS: BP 163/65
[2023-07-05 05:33] LABS: BASO% 0.2 % (0-3); HEMATOCRIT 32.4 % (37.0-47.0); HEMOGLOBIN 9.8 g/dl (12.0-16.0); IMMATURE GRANULOCYTES 1.9 % (0.0-5.0); LYMPH% 5.6 % (15-41); MEAN CELL VOLUME 98.8 fL CALC (80.0-100.0); MEAN CORPUSCULAR HGB 29.9 pG CALC (26.0-32.0); MEAN CORPUSCULAR HGB CONC 30.2 g/dL CAL (32.0-36.0); MONO% 3.9 % (2-13); NEUT# 4.72 thou/uL (2.00-7.15); NEUT% 88.4 % (42-76); RED BLOOD COUNT 3.28 mill/uL (4.20-5.60); RED CELL DISTRI WIDTH 15.8 % (11.5-15.5)
[2023-07-05 05:39] LABS: ALBUMIN 3.8 g/dL (3.2-5.0); BILIRUBIN, TOTAL 0.3 mg/dL (0.02-1.3); CREATININE 2.1 mg/dL (0.5-1.0); TOTAL PROTEIN 6.6 g/dL (6.3-8.2)
[2023-07-05 05:46] LABS: MAGNESIUM 2.2 mg/dL (1.6-2.3); POTASSIUM 5.2 mmol/l (3.5-5.1)
[2023-07-05 06:21] VITALS: BP 143/66
[2023-07-05 08:46] VITALS: BP 182/77
[2023-07-05 12:28] VITALS: BP 136/77
[2023-07-05] MEDS ORDERED: PERCOCET1 TA4 PO (13:55)
[2023-07-05 15:31] VITALS: BP 172/70
== END 2023-07-05 16:00 | disposition home health service (06) ==
LOC: ED 17:52 → ED-I 18:46 → ED 20:33 → MS2 20:34
PROVIDERS: Family Medicine; Internal Medicine Nephrology; Nurse Practitioner Family; ADMIT Student in an Organized Health Care Education/Training Program; ATTEND Student in an Organized Health Care Education/Training Program
DX: I13.0 Hypertensive heart and chronic kidney disease with heart failure and stage 1 through stage 4 chronic kidney disease, or unspecified chronic kidney disease (principal); I50.9 Heart failure, unspecified; N18.4 Chronic kidney disease, stage 4 (severe); J43.9 Emphysema, unspecified; J96.21 Acute and chronic respiratory failure with hypoxia; E78.5 Hyperlipidemia, unspecified; E87.5 Hyperkalemia; D63.1 Anemia in chronic kidney disease; I25.10 Atherosclerotic heart disease of native coronary artery without angina pectoris; G89.4 Chronic pain syndrome; G47.33 Obstructive sleep apnea (adult) (pediatric); K59.09 Other constipation; I25.2 Old myocardial infarction; Z99.81 Dependence on supplemental oxygen; Z20.822 Contact with and (suspected) exposure to COVID-19
CPT/HCPCS: J1650; J1756; Q5106 EC

== ENCOUNTER 2023-10-27 08:41 | Inpatient (IN) | payer MEDICARE, MEDICAID ==
[2023-10-27] VITALS (19 sets, daily range): BP systolic 142–202; BP diastolic 64–90
[~2023-10-27] VITALS: Ht 170.2 cm; Wt 82.7 kg
[~2023-10-27 08:41] MED LIST changes: +PREDNISOLONE5 M1 PO
--- NOTE | 2023-10-27 09:00 | NUR ---
PT SITING IN BED, PT CO ABD PAIN, PROVIDER NOTIFIED
[2023-10-27 09:52] LABS: BASO% 0.3 % (0-3); EOS% 1.3 % (0-8); HEMOGLOBIN 11.2 g/dl (12.0-16.0); IMMATURE GRANULOCYTES 0.4 % (0.0-5.0); LYMPH% 15.1 % (15-41); MEAN CELL VOLUME 96.7 fL CALC (80.0-100.0); MEAN CORPUSCULAR HGB 28.1 pG CALC (26.0-32.0); MEAN CORPUSCULAR HGB CONC 29.1 g/dL CAL (32.0-36.0); MONO% 9.3 % (2-13); NEUT# 5.57 thou/uL (2.00-7.15); NEUT% 73.6 % (42-76); RED BLOOD COUNT 3.98 mill/uL (4.20-5.60); RED CELL DISTRI WIDTH 17.7 % (11.5-15.5)
[2023-10-27 09:58] LABS: HEMATOCRIT 38.5 % (37.0-47.0)
[2023-10-27 10:19] LABS: ALBUMIN 4.3 g/dL (3.2-5.0); CREATININE 1.8 mg/dL (0.5-1.0); POTASSIUM 4.3 mmol/l (3.5-5.1); TOTAL PROTEIN 7.1 g/dL (6.3-8.2)
[2023-10-27 10:21] LABS: BILIRUBIN, TOTAL 0.6 mg/dL (0.02-1.3)
--- NOTE | 2023-10-27 10:50 | NUR ---
NG PLACED PER MD ORDERS, PT TOLERATED WELL, NG TUBE CONNECTED TO INTERMITTEN SUCTION
[2023-10-27 11:09] LABS: URINE BILIRUBIN - DIPSTICK Negative (NEGATIVE); URINE BLOOD DIPSTICK Negative (NEGATIVE); URINE GLUCOSE - DIPSTICK Negative (NEGATIVE); URINE KETONE Negative (NEGATIVE); URINE LEUK ESTERASE Negative (NEGATIVE); URINE NITRITE - DIPSTICK Negative (Negative); URINE PROTEIN - DIPSTICK Trace mg/dL (NEG-TRACE); URINE SPECIFIC GRAVITY 1.015; URINE UROBILINOGEN - DIPSTICK 0.2 E.U./dL (0.2)
[2023-10-27 11:11] LABS: URINE COLOR Yellow
--- NOTE | 2023-10-27 11:33 | NUR ---
PT MEDICATED PER EMAR, PT AT BEDSIDE, PT DENIES ANY NEEDS AT THIS TIME
--- NOTE | 2023-10-27 12:38 | NUR ---
PROVIDER AT BEDSIDE, PT NEEDS SURGERY FOR BOWEL OBSTRUCTION, PT NOT WANTITNG TO HAVE IT DONE HERE, PT WANTS TO TALK WITH HER AND THEN DECIDE IF SHE WANTS HAVE THE SURGERY DONE HERE OR TRANSFER
[2023-10-27] MEDS ORDERED: KLOR-CON M1010 MEQ PO (13:04)
[2023-10-27] MEDS ORDERED: LINZESS72 MCG PO (13:05)
[2023-10-27] MEDS ORDERED: MITIGARE0.6 MG PO (13:06)
--- NOTE | 2023-10-27 13:26 | NUR ---
DR NI BEDSIDE TO SEE PT.
--- NOTE | 2023-10-27 14:23 | NUR ---
pt reports need to use bedside comode, pt appears generally weak and uncomfortable. educated pt on option to use comode or purewick, pt reports desire for purewick. purewick and brief in place.
--- NOTE | 2023-10-27 15:33 | NUR ---
STELLA CALLED FOR TRANSFER OF CARE REPORT, GAVE PT INFO, PT TO BE TRANSPORTED TO MS ROOM [id number]
--- NOTE | 2023-10-27 16:24 | NUR ---
PT TRANSPORTED TO MS ROOM [id number].SOHAIL AT BEDSIDE, PT TOLERATED TRANSPORT WELL, PT TOOK ALL BELONGINGS WITH HER AT TIME OF TRANSPORT
--- NOTE | 2023-10-27 20:05 | NUR ---
RECEIVED REPORT FROM MARCO A RODRIGUES. PT IS IN BED BELLY DISTENDED AND TENDER TO TOUCH. NO BOWEL SOUNDS HEARD. NG SUCTION SETTING CORRECTED. PT COMPLAINS OF PAIN AT THIS TIME. MEDICATION HAS BEEN ADMINISTERED. SAFETY PRECAUTIONS IN PLACE AND CALL LIGHT WITHIN REACH.
[2023-10-28] VITALS (33 sets, daily range): BP systolic 98–157; BP diastolic 44–75
--- NOTE | 2023-10-28 | NUR ---
CALLED PLACED DR REYNAGA. ADVISED THAT NG TUBE SETTINGS AT ADMISSION WAS WRONG AND THEN CORRECTED, NO OUTPUT FROM THE NG TUBE, NEW OUTPUT OF 350 NOTED, BELLY WAS DISTENDED AND MASSIVELY TENDER TO TOUCH, NO ACTIVE BOWEL SOUNDS, 2 DOSES OF PAIN MEDICATION HAD BEEN ADMINISTERED WITH LITTLE TO NO RELEIF. NO NEW ORDERS FROM PHYSICIAN.
--- NOTE | 2023-10-28 04:00 | NUR ---
PT IS LAYING IN SEMIFOWLERS POSITION.PT IS STILL COMPLAINING IN BED ABOUT ABDOMEN PAIN. SAFETY PRECAUTIONS IN PLACE AND CALL LIGHT WITHIN REACH.
[2023-10-28 05:26] LABS: HEMOGLOBIN 12.9 g/dl (12.0-16.0); MEAN CELL VOLUME 98.9 fL CALC (80.0-100.0); MEAN CORPUSCULAR HGB CONC 29.3 g/dL CAL (32.0-36.0); RED BLOOD COUNT 4.45 mill/uL (4.20-5.60); RED CELL DISTRI WIDTH 17.8 % (11.5-15.5)
[2023-10-28 05:50] LABS: POTASSIUM 5.5 mmol/l (3.5-5.1)
--- NOTE | 2023-10-28 08:35 | NUR ---
PT RESTING IN BED. ASSESSMENT COMPLETED. BREATHING IS LABORED, USING ACCESORY MUSCLES. ABD IS DISTENDED/FIRM. ACTIVE BOWEL SOUNDS HEARD IN ALL 4 QUADRANTS. TENDER TO TOUCH. NG TUBE OUTPUT 150CC. NOTIFIED OF FINDINGS. ALSO MEDDICATED PER PAIN SCALE. PT IS A&OX3. PURWICK IN PLACE SHOWING CYN URINE. O2 IN PLACE @4L VIA NC. PT O2 DEPENDENT AT HOME. IV PATENT/FLUSHED. INFUSING IVF PER EMAR. FALL/SAFTEY PRECAUTION IN PLACE. CALL LIGHT WITHIN REACH
--- NOTE | 2023-10-28 10:27 | NUR ---
TRANSPORTED TO OR WITH OR MIMI AND SWING GRINDER VIA STRETCHER
--- NOTE | 2023-10-28 13:50 | NUR ---
PATIENT ARRIVED TO THE UNIT VIA STRETCHER ACCOMPAINED BY OR STAFF. RESPIRATONS LABORED ON 10L OXYGEN VIA SIMPLE MASK, DECREASED TO 6L OXYGEN SATURATION 90%. PATIENT ABLE TO FOLLOW COMMANDS. SCDs PLACED. NG TUBE ON LOW CONTINUOUS SUCTION. CRANDALL PATENT AND FLOWING TO GRAVITY. SR ON THE MONITOR. SAFETY MEASURES IN PLACE INCLUDING BED IN LOW POSITION AND CALL LIGHT RESTING NEXT TO LEFT ARM. WILL CONTINUE WITH PLAN OF CARE.
--- NOTE | 2023-10-28 14:22 | NUR ---
BRIEFLY AT BEDSIDE, STATES HE WILL RETURN WHEN PATIENT IS MORE AWAKE.
[2023-10-28 15:40] LABS: HEMATOCRIT 44.7 % (37.0-47.0); HEMOGLOBIN 12.1 g/dl (12.0-16.0); MEAN CELL VOLUME 104.7 fL CALC (80.0-100.0); MEAN CORPUSCULAR HGB 28.3 pG CALC (26.0-32.0); MEAN CORPUSCULAR HGB CONC 27.1 g/dL CAL (32.0-36.0); RED BLOOD COUNT 4.27 mill/uL (4.20-5.60); RED CELL DISTRI WIDTH 18.1 % (11.5-15.5)
[2023-10-28 15:48] LABS: CREATININE 2.4 mg/dL (0.5-1.0)
[2023-10-28 16:08] LABS: POTASSIUM 6.1 mmol/l (3.5-5.1)
--- NOTE | 2023-10-28 16:15 | NUR ---
PATIENT C/O PAIN AT A 10. MEDICATED ACCORDING TO EMAR. DR. REYNAGA CONTACTED FOR MEDICATION FOR BREAKTHROUGH. SR ON THE MONITOR. SAFETY MEASURES IN PLACE. WILL CONTINUE WITH PLAN OF CARE. K+ ELEVATED AT 6.1
--- NOTE | 2023-10-28 18:34 | NUR ---
FLUIDS SWITCHED TO BICARB. POC GLUCOSE 92. 10 UNITS HUMULIN GIVEN. PATIENT C/O ABD PAIN, MEDICATED ACCORDING TO [facility]. NO OTHER CONCERNS AT THIS TIME. WILL CONTINUE WITH PLAN OF CARE.
--- NOTE | 2023-10-28 19:00 | NUR ---
REPORT RECEIVED FROM OFF GOING NURSE.
--- NOTE | 2023-10-28 19:00 | NUR ---
REPORT RECEIVED FROM OFF GOING NURSE.
--- NOTE | 2023-10-28 22:30 | NUR ---
PATIENT COULD BE HEARD MOANING IN PAIN WHILE SITTING AT THE DESK. UPON ASSESSMENT OF PATIENT, PATIENT NOTED ABDOMINAL BREATHING. LUNGS NOTED COARSE AND DIMINISHED. ORDER PUT IN FOR ABG.
--- NOTE | 2023-10-28 22:40 | NUR ---
DR. REYNAGA CONTACTED REGARDING PATIENTS ABG RESULTS AND PATIENTS CURRENT STATUS. NEW ORDERS RECEIVED TO HAVE ER DOCTOR INTUBATE PATIENT. TO GIVE 1L BOLUS OF NS, AND TO GIVE DOPAMINE AT 3MC/K/MIN; WITHOUT TITRATING. ALL ORDERS NOTED AND FAXED TO PHARMACY. DR. BELLAMY CONTACTED TO COME INTUBATE PATIENT. WILL CONTINUE TO MONITOR.
--- NOTE | 2023-10-28 22:45 | NUR ---
ER DR. BELLAMY CALLED TO INTUBATE PATIENT.
--- NOTE | 2023-10-28 22:45 | NUR ---
DR. BELLAMY ARRIVED FROM ER TO INTUBATE PATIENT.
[2023-10-29] VITALS (85 sets, daily range): BP systolic 102–172; BP diastolic 43–81
--- NOTE | 2023-10-29 01:06 | NUR ---
EMERGENCE TELER CONTACTED UNIT REGARDING X-RAY; AND STATED THAT THE ET TUBE NEEDED TO BE RETRACTED 3-4 CM. RESPIRATORY CONTACTED. ET TUBE RETRACTED FROM 27.5 CM - 24 CM AT THIS TIME. WILL CONTINUE TO MONITOR.
--- NOTE | 2023-10-29 02:00 | NUR ---
PATIENT NOTED RESTING COMFORTABLY AT THIS TIME WITH NO ACURE DISTRESS NOTED. WILL CONTINUE TO MONITOR.
--- NOTE | 2023-10-29 04:00 | NUR ---
PATIENT RESTING COMFORTABLY WITH NO ACUTE DISTRESS NOTED AT THIS TIME. RASS -2 NOTED. WILL CONTINUE TO MONITOR.
--- NOTE | 2023-10-29 04:30 | NUR ---
PATIENT NOTED AWAKE PROPROFOL INCREASED TO 45.
--- NOTE | 2023-10-29 05:00 | NUR ---
PATIENT MOVING, PROPROFOL INCREASED TO 50. WILL CONTINUE TO MONITOR.
[2023-10-29 05:42] LABS: BASO% 0.1 % (0-3); HEMOGLOBIN 10.1 g/dl (12.0-16.0); IMMATURE GRANULOCYTES 0.8 % (0.0-5.0); LYMPH% 4.4 % (15-41); MEAN CELL VOLUME 99.2 fL CALC (80.0-100.0); MEAN CORPUSCULAR HGB 28.6 pG CALC (26.0-32.0); MEAN CORPUSCULAR HGB CONC 28.9 g/dL CAL (32.0-36.0); MONO% 8.1 % (2-13); NEUT# 9.29 thou/uL (2.00-7.15); NEUT% 86.6 % (42-76); RED BLOOD COUNT 3.53 mill/uL (4.20-5.60); RED CELL DISTRI WIDTH 17.8 % (11.5-15.5)
[2023-10-29 05:46] LABS: BILIRUBIN, TOTAL 0.7 mg/dL (0.02-1.3); CREATININE 2.7 mg/dL (0.5-1.0)
[2023-10-29 05:56] LABS: POTASSIUM 5.3 mmol/l (3.5-5.1); TOTAL PROTEIN 5.4 g/dL (6.3-8.2)
--- NOTE | 2023-10-29 08:08 | NUR ---
PATIENT REPOSITIONED TO L SIDE. ORAL CARE PROVIDED. SEDATION VACATION PERFORMED FROM 0745 - 0800. PATIENT AROUSED TO VOICE, ABLE TO FOLLOW COMMANDS. STRENGTH MODERATE. ABLE TO ANSWER YES OR NO QUESTIONS WITH HEAD NODS. PROP RESUMED AT 50 MCG/KG/MIN (24.3 ML/HR). LUNGS DIMINISHED TO ASCULTATION. HYPOACTIVE BOWEL SOUNDS NOTED IN R/LUQ. BICARB GTT AT 100 ML/HR. CRANDALL PATENT AND DRAINING TO GRAVITY, 30ML OF YELLOW URINE NOTED. SCDs IN PLACE. PATIENT ON ASSIST CONTROL WITH FIO2 OF 30, VT OF 500, RR 15 AND PEEP OF 5. SR ON THE MONITOR. BP SLIGHTLY ELEVATED. SAFETY MEASURES IN PLACE INCLUDING HOB AT 30 DEGREES AND BED IN LOW POSITION. NO APPARENT DISTRESS NOTED. WILL CONTINUE WITH PLAN OF CARE. WILL CONTACT TO UPDATE ON PATIENT'S CURRENT INTUBATION STATUS.
--- NOTE | 2023-10-29 09:27 | NUR ---
DR. REYNAGA ROUNDING AT BEDSIDE STATES PATIENT SHOULD BE ON DOPAMINE AT 3MCG WITHOUT TITRATING, WHICH SHOULD HAVE BEEN STARTED 10/28. WILL INITIATE DOPAMINE GTT AT THIS TIME. PLAN IS TO CONTINUE PATIENT ON VENTILATOR AT THIS TIME WITH THE HOPE TO EXTUBATE 10/30.
--- NOTE | 2023-10-29 09:52 | NUR ---
CONTACTED TO DISCUSS PLACING CENTRAL LINE. VERBAL CONSENT GIVEN ON THE PHONE, ONLY REQUEST IS THAT LINE BE PLACED IN ANOTHER SITE BESIDES THE NECK. AGREED IF NO OTHER AVAILABLE SITE, MAY BE PLACED IN NECK. ALSO REQUESTED THAT WE REDUCE AMOUNT OF SEDATION PATIENT IS RECEIVING. DISCUSSED THE IMPORTANCE OF SEDATION DURING INTUBATION AND STATED THIS OFFSHORE WIND OPERATIONS MANAGER WILL TRY TO SAFELY WEAN PATIENT DOWN. DISCUSSED Q12 SEDATION VACATION FOR APPROX [address] JUNIOR VERBALIZED UNDERSTANDING.
--- NOTE | 2023-10-29 10:07 | NUR ---
PATIENT REPOSITIONED TO R SIDE. AWAITING DR. REYNAGA FOR CENTRAL LINE PLACEMENT. SR ON THE MONITOR. NO APPARENT DISTRESS NOTED. WILL CONTINUE WITH PLAN OF CARE.
--- NOTE | 2023-10-29 10:45 | NUR ---
Dr Christianson called this mortgage loan underwriter; update provided; orders/changes to be made per
--- NOTE | 2023-10-29 12:08 | NUR ---
PATIENT REPOSITIONED SUPINE. ORAL CARE PROVIDED. SR ON THE MONITOR. AWAITING XRAY RESULTS TO USE CENTRAL LINE. NO APPARENT DISTRESS NOTED. WILL CONTINUE WITH PLAN OF CARE.
--- NOTE | 2023-10-29 14:00 | NUR ---
PATIENT REPOSITIONED TO R SIDE. ORAL CARE PROVIDED. SR ON THE MONITOR. PROP GTT INCREASED TO 50 MCG/KG/MIN PATIENT NODDED HEAD WHEN ASKED IF UNCOMFORTABLE. PATIENT C/O PAIN, WILL MEDICATE ACCORDING TO EMAR. NO OTHER CONCERNS AT THIS TIME. WILL CONTINUE WITH PLAN OF CARE.
--- NOTE | 2023-10-29 14:50 | NUR ---
PATIENT TRANSFERRED TO AIR MATTRESS. PATIENT TOLERATED TRANSFER WELL. NO APPARENT DISTRESS NOTED. WILL CONTINUE WITH PLAN OF CARE.
--- NOTE | 2023-10-29 16:07 | NUR ---
PATIENT REPOSITIONED TO LEFT SIDE. ORAL CARE PROVIDED. SR ON THE MONITOR. RASS -2. SAFETY MEASURES IN PLACE. NO APPARENT DISTRESS NOTED. WILL CONTINUE WITH PLAN OF CARE.
--- NOTE | 2023-10-29 18:32 | NUR ---
PATIENT REPOSITIONED SUPINE. ORAL CARE PROVIDED. SR ON THE MONITOR. NO APPARENT DISTRESS NOTED. WILL CONTINUE WITH PLAN OF CARE.
--- NOTE | 2023-10-29 20:00 | NUR ---
PATIENT NOTED LYING IN BED WITH HOB ELEVATED. SHE IS VENTED AT THIS TIME. RESTRAINTS IN PLACE. RIGHT SUBCLAVIAN TRIPPLE LUMEN NOTED, WITH DOPAMINE, PROP, AND NS RUNNING AT THIS TIME. WILL CONTINUE TO MONITOR.
[2023-10-30] VITALS (71 sets, daily range): BP systolic 117–198; BP diastolic 57–103
--- NOTE | 2023-10-30 | NUR ---
NO CHANGES NOTED. WILL CONTINUE TO MONITOR.
[2023-10-30 05:56] LABS: ALBUMIN 2.7 g/dL (3.2-5.0); CREATININE 2.6 mg/dL (0.5-1.0); MAGNESIUM 1.5 mg/dL (1.6-2.3); POTASSIUM 4.6 mmol/l (3.5-5.1)
--- NOTE | 2023-10-30 07:00 | NUR ---
REPORT RECEIVED FROM PM RN. PT IS LYING IN BED WITH EYES CLOSED. VENTILATED. NG TUBE IN PLACE DRAINING BROWN LIQUID TO LOW INTERMITTENT SUCTION. CRANDALL DRAINING CLEAR YELLOW URINE. PT HAS RIGHT SUBCLAVIAN TLC WITH PROPOFOL AT 60 & DOPAMINE @ 3. NS @ 75. PT WAKES TO VOICE AND DRIFTS RIGHT BACK TO SLEEP.
--- NOTE | 2023-10-30 10:00 | NUR ---
PT SPOUSE IN ROOM. "JUST CAME TO GET A KISS"
--- NOTE | 2023-10-30 18:09 | NUR ---
ORAL CARE PROVIDED. PT STILL WAKES TO HER NAME CALLED BUT DRIFTS RIGHT BACK TO SLEEP.
--- NOTE | 2023-10-30 19:00 | NUR ---
REPORT RECEIVED FROM OFF GOING NURSE.
--- NOTE | 2023-10-30 20:00 | NUR ---
PATIENT NOTED LYING IN BED WITH NO ACUTE DISTRESS NOTED. SHE IS EASILY AROUSED. PROP INCREASED FROM 65 TO 70 FOR PATIENTS COMFORT. BP NOTED SLIGHTLY ELEVATED AT THIS TIME. RIGHT SUBCLAVIAN NOTED RUNNING PROP AT 70, DOPAMINE AT 3MCG/KG/ MIN, AND NS AT 75. AIR MATRESS NOTED, SCD'S IN PLACE. SHE IS NOTED ON THE VENTILATOR AT THIS TIME. SUBCLAVIAN TRIPPLE LUMEN NOTED. DRESSING CLEAN DRY AND INTACT. PATIENT REPOSITIONED, MOUTH CARE GIVENN AT TBIS TIME. WILL CONTINUE TO MONITOR.
--- NOTE | 2023-10-30 21:56 | NUR ---
SPOKE W/ DR. REYNAGA REGARDING BLOOD SUGAR. BLOOD SUGAR NOTED 353, ORDER RECEIVED FOR LOW DOSE INSULIN PROTOCOL.
--- NOTE | 2023-10-30 22:00 | NUR ---
MOUTH CARE GIVEN, PATIENT REPOSITIONED. NO ACUTE DISTRESS NOTED AT THIS TIME. WILL CONTINUE TO MONITOR.
--- NOTE | 2023-10-30 23:15 | NUR ---
COMPLETE BED BATH AND LINEN CHANGE DONE. NO ACUTE DISTRESS NOTED. WILL CONTINUE TO MONITOR.
[2023-10-31] VITALS (89 sets, daily range): BP systolic 106–196; BP diastolic 52–87
--- NOTE | 2023-10-31 02:00 | NUR ---
NO CHANGES NOTED. PATIENT REPOSITIONED. MOUTH CARE GIVEN. SHE IS EASILY AROUSED. SHE IS NOTED COMFORTABLE AT THIS TIME. WILL CONTINUE TO MONITOR.
[2023-10-31 06:25] LABS: BASO% 0.2 % (0-3); EOS% 2.1 % (0-8); HEMATOCRIT 29.8 % (37.0-47.0); IMMATURE GRANULOCYTES 0.2 % (0.0-5.0); LYMPH% 8.2 % (15-41); MEAN CELL VOLUME 94.9 fL CALC (80.0-100.0); MEAN CORPUSCULAR HGB 28.7 pG CALC (26.0-32.0); MEAN CORPUSCULAR HGB CONC 30.2 g/dL CAL (32.0-36.0); MONO% 9.2 % (2-13); NEUT# 6.75 thou/uL (2.00-7.15); NEUT% 80.1 % (42-76); RED BLOOD COUNT 3.14 mill/uL (4.20-5.60); RED CELL DISTRI WIDTH 18.3 % (11.5-15.5)
--- NOTE | 2023-10-31 06:52 | NUR ---
REPORT GIVEN TO ONCOMING NURSE.
[2023-10-31 07:03] LABS: ALBUMIN 2.6 g/dL (3.2-5.0); MAGNESIUM 1.5 mg/dL (1.6-2.3); POTASSIUM 4.4 mmol/l (3.5-5.1)
[2023-10-31 07:54] LABS: CREATININE 2.2 mg/dL (0.5-1.0); POTASSIUM 4.4 mmol/l (3.5-5.1)
--- NOTE | 2023-10-31 08:00 | NUR ---
REPORT RECIEVED FROM NIGHT RN. PT ADMITTED FOR SBO AND HAD SURGERY WITH DR. REYNAGA ON 10/28. PT CURRENTLY INTUBATED AND SEDATED. SEDATION MAINTAINED WITH PROPOFOL AND PT IS ON DOPAMINE GTT. PT IS RASS -2. LUNGS COARSE. PT TOLERATING VENT SETTINGS WELL. HEART RHYTHM REGULAR. BOWEL SOUNDS HYPOACTIVE; PT HAS OG TO LOW CONTINUOUS SUCTION; MINIMAL DRAINAGE. ABDOMINAL INCISION INTACT WITH DERMABOND; NO DRAINAGE OR S/S OF INFECTION. PULSES STRONG ALL EXTREMETIES. SKIN W/D. TRACE EDEMA BILATERAL LOWER EXTREMETIES. IV ACCESS 22G L HAND AND RIGHT SUBCLAVIAN TRIPLE LUMEN. PT REPOSITIONED FOR COMFORT. ORAL SUCTIONING AND MOUTH CARE PROVIDED. VSS AT THIS TIME.
--- NOTE | 2023-10-31 08:20 | NUR ---
PHONE CALL RECIEVED FROM DR. REYNAGA. ORDERS RECIEVED TO STOP DOPAMINE GTT AND ATTEMPT TO EXTUBATE THIS MORNING.
--- NOTE | 2023-10-31 08:40 | NUR ---
PROPOFOL OFF AND PT SWITCHED TO CPAP MODE IN ATTEMPT TO WEAN PT FOR EXTUBATION.
--- NOTE | 2023-10-31 10:30 | NUR ---
PT UNABLE TO TOLERATE WEANING DUE TO TQACHYCARDIA, HTN, AND INCREASED RR. PT WAS GIVEN PAIN MEDICATIONS SHE COMMUNICATED THAT SHE HAD PAIN. PAIN MEDS DID NOT EFFECT VS. RT AT BEDSIDE DETERMINED PT WAS NOPT READY FOR EXTUBATION. DR. REYNAGA NOTIFIED AND STATED OKAY TO ATTEMPT TO EXTUBATE TOMORROW. PT RESTARTED ON PROPOFOL FOR SEDATION AND COMFORT.
--- NOTE | 2023-10-31 12:00 | NUR ---
PT'S FAMILY AT BEDSIDE. NO CHANGES TO STATUS AT THIS TIME. PT REMAINS RASS -2. VSS.
--- NOTE | 2023-10-31 13:30 | NUR ---
RESTRAINT RENEWAL ORDER RECIEVED FROM DR. REYNAGA. PT COMFORTABLE ON CURRENT SETTINGS. REPOSITIONING AND MOUTH CARE Q2H. VSS.
--- NOTE | 2023-10-31 14:51 | NUR ---
PT TOLERATING CURRENT SEDATIONS AND VENT SETTINGS WELL. REPOSITIONED FOR COMFORT. VSS.
--- NOTE | 2023-10-31 15:42 | NUR ---
PT LOOKED UNCOMFORTABLE DUE TO SOME FACIAL GRIMACING. PT REPOSITIONED AGAIN AND SUCTIONING PERFORMED. SEDATION INCREASED. VSS.
--- NOTE | 2023-10-31 16:44 | NUR ---
PT APPEARS COMFORTABLE. VSS. ORAL CARE PROVIDED WELL REPOSITIONING.
--- NOTE | 2023-10-31 17:47 | NUR ---
PT REPOSITIONED AND ORAL CARE PROVIDED. BLOOD SUGAR READ 68, WILL PASS ALONG TO TRAVEL COUNSELOR AUTOMOBI[employer]UB TO MONITOR FOR S/S OF HYPOGLYCEMIA. SEDATION ADEQUATE. VSS. PT MEDICATED FOR PAIN SHE WAS ABLE TO NOD HEAD TO CONFIRM PRESENCE OF PAIN.
--- NOTE | 2023-10-31 19:00 | NUR ---
REPORT RECEIVED FROM OFF GOING NURSE.
--- NOTE | 2023-10-31 20:00 | NUR ---
PATIENT NOTED LYING IN BED RESTING COMFORTABLY WITH NO ACUTE DISTRESS NOTED AT THIS TIME. PATIENT EASILY AROUSED, AND NOTED COMPLETELY AWAKE AT THIS TIME. PROP INCREASED FROM 35 TO 40 AT THIS TIME. RIGHT SUBCLAVIAN TL NOTED WITH NS RUNNING AT 50 AND PROP AT 40. ASSESSMENT COMPLETED (SEE INTERVENTIONS). VSS AT THIS TIME. WILL CONTINUE TO MONITOR.
--- NOTE | 2023-10-31 22:00 | NUR ---
NO CHANGES NOTED. PATIENT REPOSITIONED, MOUTH CARE GIVEN. WILL CONTINUE TO MONITOR.
[2023-11-01] VITALS (72 sets, daily range): BP systolic 89–168; BP diastolic 36–74
--- NOTE | 2023-11-01 | NUR ---
PATIENT NOTED LYING IN BED RESTING COMFORTABLY WITH NO ACUTE DISTRESS NOTED. PATIENT REPOSITIONED AND MOUTH CARE GIVEN. WILL CONTINUE TO MONITOR.
--- NOTE | 2023-11-01 02:00 | NUR ---
NO CHANGES NOTED. MOUTH CARE GIVEN, PATIENT REPOSITIONED. WILL CONTINUE TO MONITOR.
--- NOTE | 2023-11-01 04:00 | NUR ---
NO CHANGES NOTED. PATIENT REPOSITIONED, MOUTH CARE GIVEN. WILL CONTINUE TO MONITIOR.
--- NOTE | 2023-11-01 05:00 | NUR ---
PATIENT GIVEN COMPLETE BED BATH AND LINEN CHANGE. WILL CONTINUE TO MONITOR.
[2023-11-01 05:32] LABS: ALBUMIN 2.5 g/dL (3.2-5.0); CREATININE 2.1 mg/dL (0.5-1.0); MAGNESIUM 1.7 mg/dL (1.6-2.3); POTASSIUM 4.4 mmol/l (3.5-5.1)
--- NOTE | 2023-11-01 06:00 | NUR ---
PATIENT BS NOTED 53. DEXTROSE GIVEN AND BS NOW 93. NO ACUTE DISTRESS NOTED. VSS. MOUTH CARE GIVEN, PATIENT REPOSITIONED.
--- NOTE | 2023-11-01 07:06 | NUR ---
REPRT GIVEN TO ONCOMING NURSE.
--- NOTE | 2023-11-01 08:00 | NUR ---
REPORT RECIEVED FROM NIGHT RN. PT REMAINS ON VENTILATOR; SEDATED WITH PROPOFOL. LUNGS COARSE/ RHONCHI. BOWEL SOUNDS ACTIVE. MIDLINE ABDOMINAL INCISION INTACT; FREE OF ANY S/S OF INFECTION OR DRAINIAGE. PULSES STRONG ALL EXTREMETIES. SKIN W/D. +1 EDEMA BILATERAL LOWER EXTREMETIES. VSS.
--- NOTE | 2023-11-01 08:30 | NUR ---
STARTING TO WEAN SEDATION IN EFFORT TO DO WEANING TRIAL PER DR. REYNAGA. PT WAS TURNED AND REPOSITIONED. RESTRAINTS REMOVED FOR PT CARE. MOUTH CARE AND ORAL SUCTIONING PERFORMED. PT ALERT TO VERBAL STIMULI AND REMAINS CALM. VSS.
--- NOTE | 2023-11-01 09:00 | NUR ---
ATTEMPTED TO WEAN PT FROM VENTILATOR. RT AT BEDSIDE TO CHANGE VENTILATOR MODE FOR PT. PT'S EYES OPEN AND TRACKING. PT BECAME VERY TACHYPNEIC AND BREATHING SHALLOW ACCORDING TO VENTILATOR READINGS. PT PLACED BACK ON SEDATION AND VC-AC MODE.
--- NOTE | 2023-11-01 09:45 | NUR ---
ORDERS RECIEVED FROM DR. REYNAGA TO START TPN. PHARMACY NOTIFIED. PT'S SPOUSE AT BEDSIDE AND UPDATED ON PLAN OF CARE.
--- NOTE | 2023-11-01 11:45 | NUR ---
DR. REYNAGA AT BEDSIDE TO ASSESS PT. PT IN STABLE CONDITION. TOLERATING CURRENT VENTILATOR AND SEDATION SETTINGS WELL. RT AT BEDSIDE. VSS.
[2023-11-01 12:52] LABS: CHOLESTEROL HDL RATIO 3.6 (<4.4 (CALC))
--- NOTE | 2023-11-01 13:30 | NUR ---
PT REPOSITIONED AND ORAL CARE PROVIDED. VSS.
--- NOTE | 2023-11-01 14:48 | NUR ---
Written order for Parenteral Nutrition received from Dr Dickens. Nutritional Dosing Weight used: 66.8 kg (adjusted BW) Clinical dietary recommendations reviewed. Pt to receive Clinimix with AA 5%/D20% at 84 ml/hr (total 2 liters/24 hrs) Multivitamins and trace elements to be added to 1400 bag daily. Famotidine 10 mg to be added into each bag (total 20 mg/day). No lipids at this time due to Propofol running currently at 35 ml/hr. Protein 100 g = 400 kcal/day; 14.9% of total calories Carbohydrates 400 g = 1360 kcal/day; 50.7% of total calories Fat (from propofol) = 924 kcal/day; 34.4% of total calories Total 2,684 kcal/day, 40 kcal/kg based on Nutritional Dosing Weight
--- NOTE | 2023-11-01 15:30 | NUR ---
NO CHANGES TO PT STATUS. REMAINS COMFORTABLE WITH CURRENT VENTILATOR AND SEDATION SETTINGS.
--- NOTE | 2023-11-01 17:15 | NUR ---
PT REPOSITIONED. TOLERATING TPN INFUSION WELL. NO OTHER CHANGES AT THIS TIME.
--- NOTE | 2023-11-01 19:00 | NUR ---
REPORT GIVEN TO NIGHT RN. ALL QUESTIONS ANSWERED.
--- NOTE | 2023-11-01 19:30 | NUR ---
sedated & remains intubated. lunchroom monitor shows sinus rhythm. ivf infusing per rt tlc. eldridge cath in place. urine clear yellow. pt having minimal uop. abd incision herb. bowel sounds hypoactive. og in place draining green. wrist restraints, scds, air mattress conts. requires total care for all needs. turned & repositioned.
--- NOTE | 2023-11-01 21:35 | NUR ---
pulse ox shows 70% with bad waveform. land commissioner shows sinus rhythm 90's. hr steadily dropped to 40's. pt sx & this writer producer began bagging pt. clinical support was called. hr increased to 90's. pulse ox increased to 96%. bp 168/59 then began dropping to 90's systolic. uop has been poor thus far. dr beltran was notified & orders rec'd. dopamine began as ordered.
--- NOTE | 2023-11-01 23:20 | NUR ---
rt here. abgs drawn & resulted. dr beltran notified. orders rec'd. rt notified of need to change vent settings.
[2023-11-02] VITALS (58 sets, daily range): BP systolic 106–153; BP diastolic 51–69
--- NOTE | 2023-11-02 02:00 | NUR ---
remains sedated. vent cont. uop increasing somewhat. teletypesetter monitor shows sinuis rhythm.
--- NOTE | 2023-11-02 04:00 | NUR ---
blood drawn & sent to lab.
--- NOTE | 2023-11-02 04:30 | NUR ---
rt here. abgs drawn.
[2023-11-02 04:50] LABS: BASO% 0.1 % (0-3); EOS% 1.4 % (0-8); HEMATOCRIT 26.9 % (37.0-47.0); IMMATURE GRANULOCYTES 0.4 % (0.0-5.0); LYMPH% 5.2 % (15-41); MEAN CELL VOLUME 96.4 fL CALC (80.0-100.0); MEAN CORPUSCULAR HGB 28.7 pG CALC (26.0-32.0); MEAN CORPUSCULAR HGB CONC 29.7 g/dL CAL (32.0-36.0); MONO% 11.6 % (2-13); NEUT# 9.11 thou/uL (2.00-7.15); NEUT% 81.3 % (42-76); RED BLOOD COUNT 2.79 mill/uL (4.20-5.60); RED CELL DISTRI WIDTH 18.1 % (11.5-15.5)
[2023-11-02 05:01] LABS: ALBUMIN 2.4 g/dL (3.2-5.0); CREATININE 2.2 mg/dL (0.5-1.0); MAGNESIUM 1.8 mg/dL (1.6-2.3); POTASSIUM 4.1 mmol/l (3.5-5.1); TOTAL PROTEIN 4.7 g/dL (6.3-8.2)
[2023-11-02 05:02] LABS: BILIRUBIN, TOTAL 0.4 mg/dL (0.02-1.3)
--- NOTE | 2023-11-02 05:15 | NUR ---
bath & bed change x2 assists.
--- NOTE | 2023-11-02 05:40 | NUR ---
xray here. pcxr obtained.
--- NOTE | 2023-11-02 07:30 | NUR ---
REPORT RECIEVED FROM NIGHT RN. PT HAD EPISODE OVERNIGHT IN WHICH HER 02SAT DROPPED WELL HR; PT WAS BAGGED BY NIGHT NURSE FOR A FEW MINUTES. PT APPEARS TO BE DOING WELL AT THIS TIME. TOLERATING CURRENT VENT SETTINGS WELL; SEDATED APPROPRIATELY WITH PROPOFOL. PT IS BACK ON DOPAMINE GTT. LUNGS COARSE/RHONCHI. HEART SOUNDS S1S2; PT IS NSR ON MONITOR. BOWEL SOUNDS HYPOACTIVE. QUANTITATIVE MANAGER REPORTED THAT PT HAS SMALL BM LAST NIGHT. ABDOMINAL INCISION INTACT; NO S/S OF INFECTION. PULSES STRONG ALL EXTREMETIES. SKIN W/D. AFEBRILE. +1 EDEMA BILAT LOWER EXTREMETIES. ORAL CARE PROVIDED WELL ORAL AND ET SUCTIONING. PT REPOSITIONED FOR COMFORT. VSS.
--- NOTE | 2023-11-02 07:47 | NUR ---
PHONE CALL RECIEVED FROM JOCELYN IN RADIOLOGY INFORMING THAT PT'S OG TUBE NEEDED TO BE ADVANCED 15CM, AND THAT THE TIP OF SUBCLAVIAN CATHETER WAS IN THE TIP OF THE BRACHIOCEPHALIC VEIN BUT WAS STILL OKAY FOR USE. OG TUBE ADVANCED 15 CM AND SECURED. TUBE SOUNDS TO BE IN PLACE. DR. REYNAGA NOTIFIED OF FINDINGS WELL HGB LEVEL ON MORNING LABS.
--- NOTE | 2023-11-02 09:15 | NUR ---
PT'S SPOUSE AT BEDSIDE. UPDATED ON POSSIBILITY OF TRANSFER TO ANOTHER FACILITY. NO OBJECTIONS TO PLAN OF CARE.
--- NOTE | 2023-11-02 09:30 | NUR ---
DR. REYNAGA AT BEDSIDE TO ASSESS PT.
--- NOTE | 2023-11-02 10:30 | NUR ---
PER DR. REYNAGA CVP READING OBTAINED. CVP OF 10. MONITORING PERIODICALLY DUE TO IV ACCESS BEING USED FOR CONTINUOUS DRIPS.
--- NOTE | 2023-11-02 11:00 | NUR ---
SHOVEL MECHANIC AT BEDSIDE. PT REPOSITIONED AND ORAL CARE PROVIDED. VSS. PT TOLERATING VENT SETTINGS WELL. SEDATED APPROPRIATELY.
--- NOTE | 2023-11-02 12:15 | NUR ---
TELE PULMONOLOGY CONSULT COMPLETED WITH DR. ADAIR. RECOMMENDATIONS MADE TO ORDER BILATERAL VENOUS ULTRASOUNDS FO LEGS TO RULE OUT DVT, WELL CT THORAX AND ABDOMEN/PELVIS. DR. REYNAGA NOTIFIED AND ORDERS PLACED. PHONE CALL PLACED TO ULTRASOUND TO REQUEST BEDSIDE DOPPLER. PHONE CALL PLACED TO CT TO INFORM THAT PT HAS ORDERED TESTS. PT DOING WELL AT THIS TIME. REPOSITIONING AND MOUTH CARE/SUCTIONING Q2H AND NEEDED. VSS.
--- NOTE | 2023-11-02 12:45 | NUR ---
ORDERS RECIEVED FROM DR. REYNAGA TO ORDER REPEAT H&H. LABS DRAWN FROM CENTRAL LINE. ECHO RESULTS SENT TO DR. REYNAGA.
[2023-11-02 13:32] LABS: HEMOGLOBIN 8.1 g/dl (12.0-16.0)
--- NOTE | 2023-11-02 13:51 | NUR ---
Written order for Parenteral Nutrition received from Dr Dickens. Nutritional Dosing Weight used: 66.8 kg (adjusted BW) Clinical dietary recommendations reviewed. Pt to receive Clinimix with AA 5%/D20% at 42 ml/hr (total 1 liters/24 hrs) Rate decreased to 42 ml/hr due to positive fluid balance per I&Os. Unable to get an accurate weight today. Multivitamins and trace elements to be added to 1400 bag daily. Famotidine removed due to addition of pantoprazole drip. No lipids at this time due to Propofol running currently at 24 ml/hr. Protein 50 g = 200 kcal/day; 13.2% of total calories Carbohydrates 200 g = 680 kcal/day; 44.9% of total calories Fat (from propofol) = 634 kcal/day; 41.9% of total calories Total 1,514 kcal/day, 23 kcal/kg based on Nutritional Dosing Weight
--- NOTE | 2023-11-02 14:20 | NUR ---
RT AND STRUCTURAL STEEL WORKER AT BEDSIDE TO ASSIST IN TAKING PT DOWN FOR ORDERED CT SCANS.
--- NOTE | 2023-11-02 14:58 | NUR ---
PT BACK FROM CT. TOLERATED WELL. VSS.
--- NOTE | 2023-11-02 16:00 | NUR ---
PHONE CALL RECIEVED FROM [facility] AT [facility] AND GIVEN BED ASSIGNMENT.
--- NOTE | 2023-11-02 16:38 | NUR ---
PHONE CALL PLACED TO ICU AT [facility] TO GIVE NURSE TO NURSE REPORT. ALL QUESTIONS ANSWERED.
--- NOTE | 2023-11-02 17:45 | NUR ---
REPORT GIVEN TO POSITIVE TRANSPORT TEAM. ALL QUESTIONS ANSWERED. PT BELONGINGS AND PACKET GIVEN TO TRANSPORT TEAM. PT IN STABLE CONDITION UPON DISCHARGE. PER TRANSPORT TEAM REQUEST, PT SENT WITH FULL BOTTLE OF PROPOFOL TO ENSURE ADEQUATE SEDATION DURING TRIP.
--- NOTE | 2023-11-02 18:59 | NUR ---
called [facility] at for garbage pick up man of air mattress. Spoke to hugo and was given confirmation number [id number].
== END 2023-11-02 17:45 | DRG 329 ==
LOC: ED 08:41 → ED-I 09:12 → ED 12:54 → ED-I 12:55 → ICU 12:55 → MS2 14:21 → ICU 10-28 14:00
PROVIDERS: Emergency Medicine; Internal Medicine Nephrology; ADMIT Surgery; ATTEND Surgery
PROC: 0DB80ZZ Excision of Small Intestine, Open Approach (ICD-10-PCS; principal; 2023-10-28)
PROC: 0DJU4ZZ Inspection of Omentum, Percutaneous Endoscopic Approach (ICD-10-PCS; 2023-10-28)
PROC: 02HV33Z Insertion of Infusion Device into Superior Vena Cava, Percutaneous Approach (ICD-10-PCS; 2023-10-28)
PROC: 05JY3ZZ Inspection of Upper Vein, Percutaneous Approach (ICD-10-PCS; 2023-10-28)
PROC: 3E043XZ Introduction of Vasopressor into Central Vein, Percutaneous Approach (ICD-10-PCS; 2023-10-28)
PROC: 0BH17EZ Insertion of Endotracheal Airway into Trachea, Via Natural or Artificial Opening (ICD-10-PCS; 2023-10-28)
PROC: 5A1955Z Respiratory Ventilation, Greater than 96 Consecutive Hours (ICD-10-PCS; 2023-10-28)
DX: K56.50 Intestinal adhesions [bands], unspecified as to partial versus complete obstruction (principal); J96.01 Acute respiratory failure with hypoxia; N17.0 Acute kidney failure with tubular necrosis; J96.22 Acute and chronic respiratory failure with hypercapnia; I13.0 Hypertensive heart and chronic kidney disease with heart failure and stage 1 through stage 4 chronic kidney disease, or unspecified chronic kidney disease; N18.4 Chronic kidney disease, stage 4 (severe); E87.20 Acidosis, unspecified; K55.8 Other vascular disorders of intestine; I95.9 Hypotension, unspecified; E87.5 Hyperkalemia; E83.42 Hypomagnesemia; E86.9 Volume depletion, unspecified; J98.09 Other diseases of bronchus, not elsewhere classified; I50.9 Heart failure, unspecified; D63.1 Anemia in chronic kidney disease; E78.5 Hyperlipidemia, unspecified; J43.9 Emphysema, unspecified; G89.4 Chronic pain syndrome; I25.2 Old myocardial infarction; Z99.81 Dependence on supplemental oxygen
CPT/HCPCS: S0164